=== PATIENT | female | born 1985 | race Caucasian/White ===

== ENCOUNTER → 2018-01-09 09:04 | Outpatient (CLI) | payer OTHER, SELFPAY ==
[2018-01-09 09:54] LABS: Add Manual Diff / Slide Review NO; Basophils Percent Auto 0.7 % (0-2); Eosinophils Percent Auto 0.9 % (2-4); Hemoglobin 12.6 g/dL (12.0-16.0); Lymphocytes Percent Auto 14.4 % (25-40); Mean Corpuscular Hemoglobin 25.7 PG (26-34); Mean Corpuscular Volume 77.9 fL (80-100); Monocytes Percent Auto 5.6 % (3-14); Neutrophils Absolute Auto 6000 /uL (3000-5900); Neutrophils Percent Auto 78.4 % (50-75); Platelet Count 202 X10^3/uL (150-400); Red Blood Cell Count 4.89 X10^6/uL (4.0-5.2); Red Cell Distribution Width 14.5 % (11.6-14.8); White Blood Cell Count 7.7 X10^3/uL (4.5-11.0)
[2018-01-09 10:14] LABS: Alanine Aminotransferase 26 IU/L (9-52); Albumin 4.3 g/dL (3.5-5.0); Albumin Globulin Ratio 1.5 (1.0-2.8); Alkaline Phosphatase 68 U/L (38-126); Aspartate Aminotransferase 13 IU/L (14-36); BUN Creatinine Ratio 14.3 (6-22); Bilirubin Total 0.4 mg/dL (0.2-1.3); Blood Urea Nitrogen 10 mg/dL (7-17); Calcium 9.3 mg/dL (8.4-10.2); Carbon Dioxide 26 mmol/L (22-32); Chloride 104 mmol/L (98-107); Cholesterol 225 mg/dL (140-199); Estimated Glomerular Filt Rate > 60.0 mL/min (>60); Globulin 2.8 g/dL (1.7-4.1); Glucose 85 mg/dL (70-100); HDL Cholesterol 37 mg/dL (40-60); HEMOLYSIS < 15 (0-50); LDL Cholesterol Calculated 168 mg/dL (<100); Potassium 4.2 mmol/L (3.4-5.1); Sodium 143 mmol/L (137-145); Total Protein 7.1 g/dL (6.3-8.2); Triglycerides 99 mg/dL (35-150)
[2018-01-09 10:40] LABS: TSH w/ Reflex to FT4 2.54 uIU/mL (0.47-4.68)
[2018-01-09 10:44] LABS: Testosterone 28.5 ng/dL (5.71-77.0)
== END ==
PROVIDERS: PCP Family Medicine; Visit Provider Family Medicine
DX: E28.2 Polycystic ovarian syndrome (principal)
CPT/HCPCS: 36415; 80053; 80061; 84403; 84443; 85025

== ENCOUNTER 2019-06-18 18:31 | Observation (INO) | payer OTHER, SELFPAY ==
[2019-06-18 18:49] VITALS: BP 191/109; PULSE 78; RESP 16; TEMP 36.8; O2SAT 100
--- NOTE | 2019-06-18 19:02 | ED_ITS ---
HPI - Abdominal Pain <NETTIE Bell - Last Filed: 06/18/19 21:35> General Chief Complaint: Abdominal Pain Stated Complaint: stomach pain x15 minutes Time Seen by Provider: 06/18/19 18:37 Source: patient Mode of arrival: Ambulatory Limitations: no limitations History of Present Illness HPI narrative: 33yo female presents to the emergency department complaining of sudden onset of upper abdominal pain that started while she was working in the kitchen doing dishes. She is tearful stating ?I have never had pain like this before ever ?. She states the pain occasionally radiates up to the middle of her chest and around to the right side of her back. She states pain is worse with palpation and movement. She describes the pain as a 10/10 and is unable to give a characteristic of the pain. Patient denies any nausea, vomiting, diarrhea, shortness of breath, cough, fevers, chills, or any other concerns. She denies any history of abdominal surgeries. Related Data Home Medications Medication Instructions Recorded Confirmed etonogestrel 68 mg subdermal SUBDERMAL each 12/28/17 12/28/17 implant Previous Rx's Medication Instructions Recorded spironolactone 50 mg tablet 25 mg PO BID #60 tab 12/28/17 Allergies Allergy/AdvReac Type Severity Reaction Status Date / Time No Known Drug Allergies Allergy Verified 12/28/17 08:31 Review of Systems <NETTIE Bell - Last Filed: 06/18/19 21:35> Review of Systems Narrative: REVIEW OF SYSTEMS: GENERAL: Denies fever, chills, malaise, or wt. loss. HENT: No head trauma, sore throat, or dysphagia. EYES: No loss of vision, double vision, eye pain, or irritation. CARDIOVASCULAR: No chest pain, palpitations, or orthopnea. RESPIRATORY: No shortness of breath or cough. GASTROINTESTINAL: Complains of upper abdominal pain, see HPI GENITOURINARY: No flank pain, urinary incontinence, hesitancy, frequency, or dysuria. MUSCULOSKELETAL: No pain, weakness, or trauma. INTEGUMENTARY: No rash, lesions, or pruritus. NEURO: No numbness, tingling, memory loss, confusion, or headaches. Patient History <NETTIE Bell - Last Filed: 06/18/19 21:35> Medical History 1 para 1 (Resolved) (normal spontaneous vaginal delivery) (Resolved 2013) PCOS (polycystic ovarian syndrome) (Chronic) Family History Father Hyperlipidemia Social History marital status: number of children: 4 household members: spouse education level: college occupational status: employed Smoking Status: Never smoker alcohol intake: never Smoking Status: Never smoker Substance Use Type: does not use Exam <NETTIE Bell - Last Filed: 06/18/19 21:35> Initial Vital Signs Initial Vital Signs: Vital Signs Temperature 98.3 F 06/18/19 18:49 Pulse Rate 78 06/18/19 18:49 Respiratory Rate 16 06/18/19 18:49 Blood Pressure 191/109 H 06/18/19 18:49 Pulse Oximetry 100 06/18/19 18:49 PHYSICAL EXAMINATION: GENERAL: Well groomed, alert, and cooperative. Answers questions promptly and appropriately. Vital signs noted. HENT: Normocephalic, atraumatic. Hearing intact. Oral mucosa is pink and moist. EYES: Conjunctiva pink, sclera white, no periorbital swelling. CHEST: No pain with palpation. CARDIOVASCULAR: S1 and S2 sounds normal. Regular rate and rhythm, no murmurs, clicks, or bruits. No pedal edema. RESPIRATORY: Normal respiratory rate, trachea midline, airway patent. No stridor, nasal flaring or accessory muscle use. Lungs are clear in all bullard without wheeze, rhonchi, or crackles. GASTROINTESTINAL: Bowel sounds normoactive. Abdomen is soft with right upper quadrant tenderness, positive Lai sign. No organomegaly, no palpable masses. GENITALURINARY: No flank tenderness. MUSCULOSKELETAL: Normal gait and coordination. Equal tone and mass bilaterally. EXTREMITIES: CMS intact, no pedal edema. SKIN: Warm, dry, soft, appropriate color for ethnicity. No lesions, rashes, or wounds to visualized areas. NEURO: Alert and Oriented X 3. Good coordination. No ataxia, or sensory deficits, or cognitive issues. PSYCH: Appropriate affect and mood. <Nixon German MD - Last Filed: 06/19/19 02:34> Initial Vital Signs Initial Vital Signs: Vital Signs Temperature 98.3 F 06/18/19 18:49 Pulse Rate 78 06/18/19 18:49 Respiratory Rate 16 06/18/19 18:49 Blood Pressure 191/109 H 06/18/19 18:49 Pulse Oximetry 100 06/18/19 18:49 Course <NETTIE Bell - Last Filed: 06/18/19 21:35> Course Course Narrative: Pain and nausea medications given. Patient reported significant improvement after administration of medications. Orders Ordered: ED Orders 06/18/19 18:37 EKG-12 Lead Stat 06/18/19 18:46 Complete Blood Count AUTO DIFF Stat Comprehensive Metabolic Panel Stat Lipase Stat Partial Thromboplastin Time Stat Prothrombin Time INR Stat 06/18/19 19:04 US abdomen limited Stat Sodium Chloride (Normal Saline 0.9%) 1,000 mls @ 125 mls/hr IV CONT DIVINE Last Admin: 06/18/19 23:42 Dose: 125 mls/hr Documented by: EMMANUEL Piperacillin/Tazobactam/Dextrose (Zosyn) 3.375 gm in 50 mls @ 100 mls/hr IV Q8H DIVINE Morphine Sulfate (Morphine) 2 mg IV Q2HR PRN PRN Reason: Pain, Moderate (4-6) Last Admin: 06/19/19 00:02 Dose: 2 mg Documented by: EMMANUEL Ondansetron HCl (Zofran) 4 mg IV Q8HR DIVINE Oxycodone HCl (Percolone) 5 mg PO Q4HR PRN PRN Reason: Pain, Moderate (4-6) Last Admin: 06/18/19 22:17 Dose: 5 mg Documented by: DIMITRIOS Discontinued Medications Hydromorphone HCl (Dilaudid) 0.5 mg IV NOW ONE Stop: 06/18/19 19:03 Last Admin: 06/18/19 20:03 Dose: 0.5 mg Documented by: KIRAN Piperacillin/Tazobactam/Dextrose (Zosyn) 3.375 gm in 50 mls @ 100 mls/hr IV NOW ONE Stop: 06/18/19 21:32 Last Infusion: 06/18/19 21:25 Dose: 0 mls/hr Documented by: Admin: 04/08/20 21:10 Dose: 100 mls/hr Documented by: KIRAN Sodium Chloride (Normal Saline 0.9%) 1,000 mls @ 1,000 mls/hr IV BOLUS ONE Stop: 06/18/19 22:00 Last Infusion: 06/18/19 21:25 Dose: 0 mls/hr Documented by: Admin: 06/18/19 21:10 Dose: 1,000 mls/hr Documented by: KIRAN Ondansetron HCl (Zofran Odt) 4 mg SL NOW ONE Stop: 06/18/19 19:03 Last Admin: 06/18/19 20:04 Dose: 4 mg Documented by: KIRAN Consultations Consultation #1: Patient staffed with Dr. German, discussed orders, tests, and pain management Consultation #2: Spoke with Dr. Callejas about ultrasound findings, patient admitted to observation. We discussed giving IV fluids, Zosyn, and placing the patient on a clear liquid diet. Dr. Callejas stated that surgery is attempted to be evaluated in this case due to the current pandemic. Patient was updated about this plan, agreed to admission. Vital Signs Vital signs: Vital Signs - 8 hr 06/18/19 18:49 06/18/19 20:54 Temperature 98.3 F Pulse Rate 78 67 Respiratory Rate 16 15 Blood Pressure 191/109 H Blood Pressure [Right Arm] 138/80 Pulse Oximetry 100 100 <Nixon German MD - Last Filed: 06/19/19 02:34> Orders Ordered: ED Orders 06/18/19 18:37 EKG-12 Lead Stat 06/18/19 18:46 Complete Blood Count AUTO DIFF Stat Comprehensive Metabolic Panel Stat Lipase Stat Partial Thromboplastin Time Stat Prothrombin Time INR Stat 06/18/19 19:04 US abdomen limited Stat Sodium Chloride (Normal Saline 0.9%) 1,000 mls @ 125 mls/hr IV CONT DIVINE Last Admin: 06/18/19 23:42 Dose: 125 mls/hr Documented by: EMMANUEL Piperacillin/Tazobactam/Dextrose (Zosyn) 3.375 gm in 50 mls @ 100 mls/hr IV Q8H DIVINE Morphine Sulfate (Morphine) 2 mg IV Q2HR PRN PRN Reason: Pain, Moderate (4-6) Last Admin: 06/19/19 00:02 Dose: 2 mg Documented by: EMMANUEL Ondansetron HCl (Zofran) 4 mg IV Q8HR DIVINE Oxycodone HCl (Percolone) 5 mg PO Q4HR PRN PRN Reason: Pain, Moderate (4-6) Last Admin: 06/18/19 22:17 Dose: 5 mg Documented by: DIMITRIOS Discontinued Medications Hydromorphone HCl (Dilaudid) 0.5 mg IV NOW ONE Stop: 06/18/19 19:03 Last Admin: 06/18/19 20:03 Dose: 0.5 mg Documented by: KIRAN Piperacillin/Tazobactam/Dextrose (Zosyn) 3.375 gm in 50 mls @ 100 mls/hr IV NOW ONE Stop: 06/18/19 21:32 Last Infusion: 06/18/19 21:25 Dose: 0 mls/hr Documented by: Admin: 06/18/19 21:10 Dose: 100 mls/hr Documented by: KIRAN Sodium Chloride (Normal Saline 0.9%) 1,000 mls @ 1,000 mls/hr IV BOLUS ONE Stop: 06/18/19 22:00 Last Infusion: 06/18/19 21:25 Dose: 0 mls/hr Documented by: Admin: 06/18/19 21:10 Dose: 1,000 mls/hr Documented by: KIRAN Ondansetron HCl (Zofran Odt) 4 mg SL NOW ONE Stop: 06/18/19 19:03 Last Admin: 06/18/19 20:04 Dose: 4 mg Documented by: KIRAN Vital Signs Vital signs: Vital Signs - 8 hr 06/18/19 18:49 06/18/19 20:54 Temperature 98.3 F Pulse Rate 78 67 Respiratory Rate 16 15 Blood Pressure 191/109 H Blood Pressure [Right Arm] 138/80 Pulse Oximetry 100 100 MDM - Abdominal Pain <NETTIE Bell - Last Filed: 06/18/19 21:35> Medical Records Attestation: I reviewed the patient's medical records. Lab Data Attestation: I reviewed the patient's lab results. Result diagrams: 06/18/19 18:46 06/18/19 18:46 Labs: Lab Results 06/18/19 06/18/19 06/18/19 Range/Units 18:46 18:46 18:46 WBC 12.3 H (4.5-11.0) X10^3/uL RBC 4.76 (4.0-5.2) X10^6/uL Hgb 13.0 (12.0-16.0) g/dL Hct 38.6 (36-46) % MCV 81.2 (80-100) fL MCH 27.4 (26-34) PG MCHC 33.7 (30-36) % RDW 13.7 (11.6-14.8) % Plt Count 190 (150-400) X10^3/uL Neut % (Auto) 71.8 (50-75) % Lymph % (Auto) 21.4 L (25-40) % Reynolds % (Auto) 5.2 (3-14) % Eos % (Auto) 1.0 L (2-4) % Baso % (Auto) 0.6 (0-2) % Neut # (Auto) 8900 H (1887-5356) /uL Lymph # (Auto) 2600 (5528-0638) /uL Reynolds # (Auto) 600 (0-900) /uL Eos # (Auto) 100 (0-450) /uL Baso # (Auto) 100 (0-100) /uL PT 11.5 (10.1-12.7) SECONDS INR 1.0 (0.9-1.3) APTT 28 (26.4-36.2) SECONDS Sodium 136 L (137-145) mmol/L Potassium 3.6 (3.4-5.1) mmol/L Chloride 102 (98-107) mmol/L Carbon Dioxide 24 (22-32) mmol/L BUN 13 (7-17) mg/dL Creatinine 0.79 (0.52-1.04) mg/dL Estimated GFR > 60.0 (>60) mL/min BUN/Creatinine Ratio 16.5 (6-22) Glucose 120 H (70-100) mg/dL Calcium 9.9 (8.4-10.2) mg/dL Total Bilirubin 0.4 (0.2-1.3) mg/dL AST 27 (14-36) IU/L ALT 20 (<35) IU/L Alkaline Phosphatase 75 (38-126) U/L Total Protein 8.2 (6.3-8.2) g/dL Albumin 4.6 (3.5-5.0) g/dL Globulin 3.6 (1.7-4.1) g/dL Albumin/Globulin Ratio 1.3 (1.0-2.8) Lipase 131 (23-300) U/L Imaging Data US - abdomen: Radiologist's Impression: [address] [id number] Ultrasound Report Signed Patient: Taylor Cazares CMR#: [id number] : 1985Acct:[id number] Age/Sex: 33 / FDate of Service: 06/18/19 Loc: ED Accession Number: [id number] Procedure: US abdomen limited Ordering Provider: Julia Gruber PROCEDURE: US ABDOMEN LIMITED INDICATIONS: RIGHT UPPER QUADRANT PAIN TECHNIQUE: Real-time scanning was performed of the abdominal and retroperitoneal organs, with image documentation. COMPARISON: None. FINDINGS: Liver: Liver is normal in size and homogeneous in echotexture. Gallbladder: Demonstrates multiple calculi with lumen. Positive sonographic Lai's sign. Gallbladder wall measures 1.4 mm. Biliary ducts: Intrahepatic bile ducts are non-dilated. Extrahepatic bile duct caliber measures 5 mm. Normal is 6-7 mm or less in diameter, or 10 mm or less post-cholecystectomy. Pancreas: Visualized portions of the pancreas are sonographically normal. IMPRESSION: 1. Cholelithiasis. 2. Positive sonographic Lai sign, which may indicate mild/early cholecystitis. However, there is no gallbladder wall thickening. Dictated by: Delta Cherry M.D. on 06/18/2019 at 20:22 Approved by: Delta Cherry M.D. on 06/18/2019 at 20:23 ECG Data Interpretation: Normal sinus rhythm, rate 88, MA interval 177, QTC 421. No ST elevation or ST depression. No ectopy. Viewed by Dr. German per protocol. [facility] Narrative Medical decision making narrative: 33-year-old fairly healthy female presenting to the emergency department with upper abdominal pain that radiates into the chest. Findings were suspicious for gallbladder etiology on exam. Ultrasound confirms cholelithiasis with mild to early colicystitis, slightly elevated white count of 12+. After discussion with Dr. Callejas suggested admission to observation with antibiotics, clear liquid diet, and IV fluids. These orders were started in the emergency department. Patient was admitted to observation. Lipase within normal limits. Less likely cardiac etiology due to duration of pain and normal EKG as well as low risk factors. Patient agreed to admission. <Nixon German MD - Last Filed: 06/19/19 02:34> Lab Data Labs: Lab Results 06/18/19 06/18/19 06/18/19 Range/Units 18:46 18:46 18:46 WBC 12.3 H (4.5-11.0) X10^3/uL RBC 4.76 (4.0-5.2) X10^6/uL Hgb 13.0 (12.0-16.0) g/dL Hct 38.6 (36-46) % MCV 81.2 (80-100) fL MCH 27.4 (26-34) PG MCHC 33.7 (30-36) % RDW 13.7 (11.6-14.8) % Plt Count 190 (150-400) X10^3/uL Neut % (Auto) 71.8 (50-75) % Lymph % (Auto) 21.4 L (25-40) % Reynolds % (Auto) 5.2 (3-14) % Eos % (Auto) 1.0 L (2-4) % Baso % (Auto) 0.6 (0-2) % Neut # (Auto) 8900 H (1646-2164) /uL Lymph # (Auto) 2600 (6325-9839) /uL Reynolds # (Auto) 600 (0-900) /uL Eos # (Auto) 100 (0-450) /uL Baso # (Auto) 100 (0-100) /uL PT 11.5 (10.1-12.7) SECONDS INR 1.0 (0.9-1.3) APTT 28 (26.4-36.2) SECONDS Sodium 136 L (137-145) mmol/L Potassium 3.6 (3.4-5.1) mmol/L Chloride 102 (98-107) mmol/L Carbon Dioxide 24 (22-32) mmol/L BUN 13 (7-17) mg/dL Creatinine 0.79 (0.52-1.04) mg/dL Estimated GFR > 60.0 (>60) mL/min BUN/Creatinine Ratio 16.5 (6-22) Glucose 120 H (70-100) mg/dL Calcium 9.9 (8.4-10.2) mg/dL Total Bilirubin 0.4 (0.2-1.3) mg/dL AST 27 (14-36) IU/L ALT 20 (<35) IU/L Alkaline Phosphatase 75 (38-126) U/L Total Protein 8.2 (6.3-8.2) g/dL Albumin 4.6 (3.5-5.0) g/dL Globulin 3.6 (1.7-4.1) g/dL Albumin/Globulin Ratio 1.3 (1.0-2.8) Lipase 131 (23-300) U/L Discharge Plan Departure Patient Disposition: Admitted as Observation Clinical Impression: Cholelithiasis Qualifiers: Cholelithiasis location: gallbladder Cholecystitis presence: with cholecystitis Cholecystitis acuity: acute Biliary obstruction: without biliary obstruction Qualified Code(s): K80.00 - Calculus of gallbladder with acute cholecystitis without obstruction Discharge Date/Time: 06/18/19 21:29 Admit Date/Time: 06/18/19 21:02 Admit Provider: Kamlesh Callejas
[2019-06-18 19:09] LABS: Prothrombin Time 11.5 SECONDS (10.1-12.7)
[2019-06-18 19:10] LABS: Add Manual Diff / Slide Review NO; Basophils Absolute Auto 100 /uL (0-100); Basophils Percent Auto 0.6 % (0-2); Eosinophils Absolute Auto 100 /uL (0-450); Hematocrit 38.6 % (36-46); Lymphocytes Absolute Auto 2600 /uL (1100-4500); Lymphocytes Percent Auto 21.4 % (25-40); Mean Corpuscular HGB Conc 33.7 % (30-36); Mean Corpuscular Hemoglobin 27.4 PG (26-34); Mean Corpuscular Volume 81.2 fL (80-100); Monocytes Absolute Auto 600 /uL (0-900); Monocytes Percent Auto 5.2 % (3-14); Neutrophils Absolute Auto 8900 /uL (1500-7000); Neutrophils Percent Auto 71.8 % (50-75); Platelet Count 190 X10^3/uL (150-400); Red Blood Cell Count 4.76 X10^6/uL (4.0-5.2); Red Cell Distribution Width 13.7 % (11.6-14.8); White Blood Cell Count 12.3 X10^3/uL (4.5-11.0)
[2019-06-18 19:12] LABS: PTT Partial Thromboplastin Tim 28 SECONDS (26.4-36.2)
[2019-06-18 19:14] LABS: Alanine Aminotransferase 20 IU/L (<35); Albumin 4.6 g/dL (3.5-5.0); Albumin Globulin Ratio 1.3 (1.0-2.8); Alkaline Phosphatase 75 U/L (38-126); Aspartate Aminotransferase 27 IU/L (14-36); BUN Creatinine Ratio 16.5 (6-22); Bilirubin Total 0.4 mg/dL (0.2-1.3); Blood Urea Nitrogen 13 mg/dL (7-17); Calcium 9.9 mg/dL (8.4-10.2); Carbon Dioxide 24 mmol/L (22-32); Chloride 102 mmol/L (98-107); Estimated Glomerular Filt Rate > 60.0 mL/min (>60); Globulin 3.6 g/dL (1.7-4.1); Glucose 120 mg/dL (70-100); HEMOLYSIS 21 (0-50); Lipase 131 U/L (23-300); Potassium 3.6 mmol/L (3.4-5.1); Sodium 136 mmol/L (137-145); Total Protein 8.2 g/dL (6.3-8.2)
[2019-06-18] MEDS: HYDROMORPHONE 0.5 MG INJ IV (20:03)
[2019-06-18] MEDS: ONDANSETRON 4 MG ODT SL (20:04)
[2019-06-18 20:54] VITALS: BP 138/80; PULSE 67; RESP 15; O2SAT 100
[2019-06-18] MEDS: PIPERACILLIN-TAZO 3.375 GM/50 ML FROZ.PIGGY IV (21:10)
[2019-06-18] MEDS: SODIUM CHLORIDE 0.9% 1,000 ML 1000 ML IV (21:10)
--- NOTE | 2019-06-18 21:28 | PC.NURSE ---
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 Pt has implant control
[2019-06-18 21:49] VITALS: BP 141/80; PULSE 69; RESP 16; TEMP 36.1; O2SAT 99
[2019-06-18] MEDS: OXYCODONE IR 5 MG TABLET PO (22:17)
[2019-06-18 22:21] VITALS: BMI 32.3
[2019-06-18 23:41] VITALS: BP 142/86; PULSE 89; RESP 18; TEMP 36.8; O2SAT 100
[2019-06-18] MEDS: SODIUM CHLORIDE 0.9% 1,000 ML 125 ML IV (23:42)
[2019-06-19] VITALS (19 sets, daily range): BP systolic 114–147; BP diastolic 51–91; PULSE 63–88; RESP 10–20; TEMP 36.3–37.2; O2SAT 95–100; BMI 32.3
--- NOTE | 2019-06-19 | PATH_ITS ---
[facility] Accession Number: [id number] . 01 Material submitted: . gallbladder - GALLBLADDER AND CONTENTS . 01 Clinical history: . STOMACH PAIN X15 MINUTES . 02 Diagnosis: Gallbladder and Contents, Cholecystectomy: Chronic cholecystitis with cholelithiasis and cholesterolosis. Negative for dysplasia and malignancy. MRV 06/23/2019 1110 Local . 02 Electronically signed: . Marianne Cedeño MD, Pathologist NPI- [id number] . 01 Gross description: . Received in formalin and labeled gallbladder is an intact gallbladder (length-9.5 cm, diameter-3.0 cm) with green, smooth, shiny serosa and a patent cystic duct. No lymph nodes are identified. The lumen contains dark green, gelatinous bile and multiple hill-yellow, gritty, friable calculi (4.5 x 3.5 x 0.4 cm in aggregate). The mucosa is pale green and rough. The wall is up to 0.1 cm thick. No nodules, masses, or lesions are identified. Section code: (A1) cystic duct resection margin and two serial sections from the body; (A2) two longitudinal sections from the fundus. ([id number]) /HOWARD 06/21/2019 1242 Local . 02 Pathologist provided ICD-10: K80.60 . 02 CPT . 527361 Performed at: 01 [facility] [address] [facility], [place], [place] [id number] MD Brice Ortiz MD Phone: [phone] Performed at: 02 [facility] [address] [place], [place] [id number] MD Marianne Cedeño MD Phone: [phone]
[2019-06-19] MEDS: MORPHINE 2 MG/ML INJ IV ×2 (00:02→14:17)
--- NOTE | 2019-06-19 00:35 | PC.NURSE ---
Addendum entered by Christin Mcarthur R.N. 06/19/19 05:44: Pain controlled with IV morphine. Pt reports feeling much better. SBA to restroom. Voiding without difficulty. Pt alert and oriented and denies any complaints Original Note: Pt reports abdomen pain 6/10 unresolved with oxycodone. Pt appears to be in a lot of pain. TO order from Dr Callejas to give morphine 2mg IV q2 hours PRN for pain.
[2019-06-19] MEDS: OXYCODONE IR 5 MG TABLET PO (05:28)
[2019-06-19] MEDS: SODIUM CHLORIDE 0.9% 1,000 ML 125 ML IV (05:29)
[2019-06-19] MEDS: ONDANSETRON 4 MG/2 ML INJ IV ×2 (05:29→19:40)
[2019-06-19] MEDS: PIPERACILLIN-TAZO 3.375 GM/50 ML FROZ.PIGGY IV ×2 (05:29→12:19)
--- NOTE | 2019-06-19 07:32 | PM.HP.1 ---
History of Present Illness History of Present Illness Date Patient Seen: 06/19/19 Time Patient Seen: 07:38 Chief complaint: stomach pain x15 minutes Narrative: Taylor is a 33-year-old woman who presented to the emergency room with acute cholecystitis. She has a history of intermittent biliary colic which she initially attributed to dairy intolerance. She describes these episodes as right upper quadrant pain following meals that would self resolve. Last night she presented with acute onset of right upper quadrant pain associated with bloating. The she had an ultrasound the right upper quadrant which demonstrates multiple gallstones there was no pericholecystic fluid or wall thickening the common bile duct was normal in size. Laboratory studies white blood cell count 12 total bilirubin 0.4 normal LFTs. No history of prior abdominal surgery. Past medical history is significant for obesity and PCOS. She is a nonsmoker and not on anticoagulation. Patient History Medical History 1 para 1 (Resolved) (normal spontaneous vaginal delivery) (Resolved 2013) PCOS (polycystic ovarian syndrome) (Chronic) Family & Social History Family History Father Hyperlipidemia Social History: household members spouse Prior Living Arrangements House Safety & Behavioral: Feels Safe in Current Yes Environment Been Physically Hurt or No Threatened By a Person Suicidal Ideation Description None Suicide Plan Description No Plan Tobacco & Substance use: Smoking Status Never smoker alcohol intake never Substance Use Type does not use Meds Home Medications and Allergies Home Medications Medication Instructions Recorded Confirmed Type etonogestrel 68 mg subdermal See Rx Instructions .ROUTE 12/28/17 06/19/19 History implant .COMPLEX each Allergies Allergy/AdvReac Type Severity Reaction Status Date / Time No Known Drug Allergies Allergy Verified 12/28/17 08:31 Review of Systems Review of Systems Narrative: A 10 point review of systems is negative except as noted in the HPI Exam Vital Signs (past 8 hours): - 06/18/19 23:41 06/19/19 05:36 Temperature 98.2 F 97.3 F L Pulse Rate 89 73 Respiratory Rate 18 18 Blood Pressure 142/86 H 133/84 Pulse Oximetry 100 100 Oxygen Delivery Method Room Air Oxygen Flow Rate 0 Narrative Exam Narrative: General-no acute distress, well nourished HEENT-moist mucous membranes, no scleral icterus Neck-supple, no lymphadenopathy Chest- non labored respirations, clear to auscultation bilaterally Cardiac-regular rate no peripheral edema Abdomen tender right upper quadrant no guarding Extremities-warm, well perfused Neurological-alert and oriented, no focal deficits Objective Labs Result Diagrams: 06/18/19 18:46 06/18/19 18:46 Labs: Laboratory Results - last 24 hr 06/18/19 06/18/19 06/18/19 18:46 18:46 18:46 WBC 12.3 H RBC 4.76 Hgb 13.0 Hct 38.6 MCV 81.2 MCH 27.4 MCHC 33.7 RDW 13.7 Plt Count 190 Neut % (Auto) 71.8 Lymph % (Auto) 21.4 L [place] % (Auto) 5.2 Eos % (Auto) 1.0 L Baso % (Auto) 0.6 Neut # (Auto) 8900 H Lymph # (Auto) 2600 [place] # (Auto) 600 Eos # (Auto) 100 Baso # (Auto) 100 PT 11.5 INR 1.0 APTT 28 Sodium 136 L Potassium 3.6 Chloride 102 Carbon Dioxide 24 BUN 13 Creatinine 0.79 Estimated GFR > 60.0 BUN/Creatinine Ratio 16.5 Glucose 120 H Calcium 9.9 Total Bilirubin 0.4 AST 27 ALT 20 Alkaline Phosphatase 75 Total Protein 8.2 Albumin 4.6 Globulin 3.6 Albumin/Globulin Ratio 1.3 Lipase 131 Assessment & Plan Assessment & Plan narrative: Taylor is a 33-year-old female with history of biliary colic and acute cholecystitis the past 12 hours.. I reviewed her ultrasound which demonstrates gallstones her laboratory studies which demonstrate white blood cell count 12 total bilirubin 0.4 and normal LFTs. I discussed with the patient the nature of her disease mike her pictures to explain her pathology. I told her I would recommend proceeding with a laparoscopic cholecystectomy but conservative treatment with antibiotic therapy is an alternative. We discussed the technical nature of the procedure including its risks of bleeding, infection, intestinal damage, damage to bile duct, bile leak, hernia formation, and anesthetic risks. Her questions have been answered she would like a chance to discuss this with her she will let us know her decision. -NPO -Zosyn -SCDs Quality VTE Deep Vein Thrombosis/Pulmonary Embolism Present on Admission: No
--- NOTE | 2019-06-19 11:00 | CM.DANOTE ---
Discharge Planning/Care Management DCP: assessment: case received, EMR reviewed. Discussed in Team Rounds with care team members stating that pt was going to surgery later this afternoon with surgeon: Dr. Alcocer. Met now with pt; introduced self and role. Pt is a 33 year old female who admitted last night to care [facility] team. She confirms that she and her discussed the options presented to them by Dr. Callejas and have decided that she will go ahead with surgery today. Payer: [facility] PCP: Dr. Alexandrea Martinez Admission status: OBS: per UR KARISSA Ferrara P: will follow prn for any d/c needs that may arise after surgery. CM Discharge Assessment Start: 06/19/19 10:58 Freq: Status: Active Protocol: Document 06/19/19 10:59 ITV (Rec: 06/19/19 11:00 ITV [id number]) Discharge Planning Assessment Advance Directives? No History Provided By Patient,Medical Record Prior Living Arrangements House Household Members spouse Independent with ADL's Yes Is patient alert and oriented? Yes Whiteboard Updated in Patient Room with Yes name and ext. # of Special Tester Review Status In Process
[2019-06-19 11:03] LABS: Bacteria Urine None Seen; RBC Urine None Seen (0-5/HPF); WBC Urine None Seen (0-5/HPF)
[2019-06-19 11:04] LABS: Appearance Urine UA CLEAR; Bilirubin Urine UA NEGATIVE (NEGATIVE); Color Urine UA YELLOW; Glucose Urine UA NEGATIVE (Negative); Ketones Urine UA NEGATIVE (NEGATIVE); Leukocyte Esterase Urine UA NEGATIVE (NEGATIVE); Nitrite Urine UA NEGATIVE (Negative); Occult Blood Urine UA NEGATIVE (Negative); Protein Urine UA NEGATIVE (Negative); Urobilinogen Urine UA 0.2 E.U./dL (0.2)
[2019-06-19 11:12] LABS: Culture Indicated Urine Cult Not Indicated; Pregnancy Test Urine Negative (Negative); Urine Comments Microscopic Normal
--- NOTE | 2019-06-19 11:21 | PC.NURSE ---
Addendum entered by Mora Bennett R.N. 06/19/19 14:54: Pt's left 4th ring finger has 2 bands, taped as unable to take off due to slightly swollen fingers. Stud earrings, pt's cell phone, and credit card's and ID sent to unit safe. Pt left to OR at 1440 via bed with OR team and Dr. Alcocer. Original Note: Day Shift- Pt A&OX4, able to make her needs known. Dr. Alcocer in to speak with pt this morning, plan for surgery at 1545, pt aware that time might adjust. Rates 2/10 aching to RUQ abd, no prn at this time, aware to let staff know if pain increasing. Denies nausea. IVF infusing well to left AC PIV. Mouth swabs and lip balm given to pt with verbal instructions. No other voiced concerns. Will monitor.
--- NOTE | 2019-06-19 14:46 | PM.PREOP ---
Pre-operative Note Interval Note History & Physical reviewed/Exam performed by Physician: Yes Changes to H&P: Yes H&P completed within 30 days and has changed as indicated here:: I have discussed the operation with the patient including risks of bleeding, infection, hernia, injury to internal organs or ducts which would require major operation to repair, bile leakage, and post operative restrictions. She appears to understand and wishes to proceed
[2019-06-19] MEDS: LACTATED RINGERS 1,000 ML 42 ML IV ×2 (14:56→19:35)
--- NOTE | 2019-06-19 17:01 | SUR.OPER ---
Supine on padded OR bed, head on pillow, arms secured on padded arm boards at <90 degrees abduction, legs uncrossed with padded footboard secured to foot of bed, safety belt at thigh, tape over blanket over lower legs.
[2019-06-19] MEDS: CEFAZOLIN 2 GM/100 ML FROZ.PIGGY IV (17:20)
[2019-06-19] MEDS: BUPIVACAINE 0.5% (PF) VIAL 30 ML INJ (17:29)
--- NOTE | 2019-06-19 18:59 | PM.OP.1 ---
Operative Date/Time/Diagnoses Date of procedure: 06/19/19 Time of procedure: 18:59 Pre-op diagnosis: Cholelithiasis cholecystitis chronic? Acute? Post-op diagnosis: same Procedure & Clinicians Procedure: Laparoscopic cholecystectomy Same procedure as scheduled: Yes Indications: Epigastric pain nausea elevated white blood cell count and abnormal ultrasound Surgeon: Juan Antonio Alcocer Click Yes if Unassisted: Yes Anesthesia Type: General Operative Notes Findings: Significant Intrahepatic portion of the gallbladder with right hepatic artery giving off branches to the gallbladder along its surface with the liver Closure Type: primary Specimen(s): other (Gallbladder and contents) Prosthetic devices, grafts, tissues, transplants, or devices: None Estimated Blood Loss (mL): 20 Blood products transfused: none Procedure in detail: The patient was placed supine on the operating room table and underwent general endotracheal anesthesia. She was prepped and draped in the usual fashion. Local anesthetic was infiltrated in the infraumbilical fold an incision made here. This carried down under direct vision into the peritoneal cavity. Stay sutures of 0 Vicryl were placed in the fascia. A 12 mm cannula was inserted and the abdomen was insufflated. The patient was repositioned in 3-the ports placed under the right costal margin. These were all 5 mm ports inserted after local anesthetic was infiltrated. The gallbladder was readily identified grasped and elevated. It is and was a bit difficult initially to discern. It almost appeared that the common bile duct or a branch of it was rotated up across the inferior portion of the gallbladder. I carefully dissected this out and a turned out to just be a a fold in the gallbladder itself. Dissection was begun below this and a ductal structure singular nature going directly the gallbladder was identified. It was from surrounding structures. Four clips were placed across it but I could not easily divide between them and therefore I clamped across the end of the gallbladder and divided above them. The gallbladder clamp prevented spillage. I identified a large arterial structure between the liver and gallbladder that appeared to give it small branches off into the gallbladder but continue on into the liver. I very carefully clipped and divided the small branches while preserving the main artery. The gallbladder was then dissected from its bed in the liver. A great deal of it was actually intra hepatic. This was a slow process. Ultimately the gallbladder was detached and removed without difficulty or spillage through the umbilical port. great care was taken throughout the procedure to vent all air through the micron filter. The port was reinserted and meticulous hemostasis achieved in the gallbladder bed. There was no ongoing bleeding and there had been no bilious drainage noted. The right upper quadrant was irrigated and suctioned free of fluid. With no further bleeding noted the ports were all removed after the evacuating the air through the filter. The is patient had a 2 0 PDS placed between the 2 Vicryl sutures at the umbilicus and then the stay sutures were tied. The wounds were all irrigated and 4 0 Vicryl subcuticular stitch interrupted stitches were used to close the skin along with Mastisol and Steri-Strips. Patient tolerated the procedure well. She was awakened in the operating room and extubated there and partially recover there as well due to the COVID-19 issues. Complications: none Post-operative Condition: stable Disposition: PACU Plan for aftercare: Will be discharged once tolerating a diet with normal vital signs
[2019-06-19] MEDS: MORPHINE 10 MG/ML INJ IV (19:39)
[2019-06-19] MEDS: hydrOXYzine 50 MG/ML INJ 25 MG IM (19:40)
[2019-06-19] MEDS: LACTATED RINGERS 1,000 ML 100 ML IV (21:23)
--- NOTE | 2019-06-19 21:33 | PC.NURSE ---
post op pt to AC from PACU at 2024. VSS. pt very drowsy. opens eyes to voice/touch but quickly drifts back to sleep. Answering questions with 1 word responses. Denies pain and is without signs/symptoms of distress. Spoke with pt at 2099 about possibility to DC tonight. Pt agreeable to DC in AM r/t drowsiness. Pt's spouse updated by this RN and notified that pt will DC tomorrow.
[2019-06-19] MEDS: KETOROLAC 30 MG/ML VIAL IV (23:54)
--- NOTE | 2019-06-20 00:10 | PC.NURSE ---
Addendum entered by Sonali Spring R.N. 06/20/19 07:22: Still complains of pain stating baseline pain now up to 6/10 so medicated with Percocet. Addendum entered by Sonali Spring R.N. 06/20/19 06:13: States pain is currently 4/10 when breathing shallow and 6/10 with deep breathing; discussed needing to keep pain at tolerable level so able to take deep breaths. Is receiving scheduled Toradol but has other pain medications available if needed; verbalizes understanding. SCD's off and patient declines to have replaced at this time. Original Note: Patient is oriented but drowsy; very soft spoken. Breath sounds diminished but CTA and is taking shallow respirations; RA sat 100%. Discussed importance of CDB to prevent post op pneumonia and also discussed splinting of incision. HRR with BP of 147/87. Denies nausea. BT hypoactive and denies flatus. 4 bandaid dressings to abdomen all CDI. Does complain of 6/10 abdominal pain due to incisions and medicated with scheduled Toradol and ice applied for comfort. Assisted to BSC with 1 assist due to generalized weakness; able to void 500cc; denies dysuria, frequency or urgency. Is able to turn self in bed. Wearing bilateral calf SCD's. Fall risk score is moderate; bed alarm is activated
[2019-06-20 03:18] VITALS: BP 133/71; PULSE 77; RESP 16; TEMP 36.6; O2SAT 100
[2019-06-20] MEDS: KETOROLAC 30 MG/ML VIAL IV (06:07)
[2019-06-20] MEDS: LACTATED RINGERS 1,000 ML 100 ML IV (07:03)
[2019-06-20] MEDS: OXYCODONE/ACETAMINOPHEN 5/325 TABLET 2 TAB PO (07:20)
[2019-06-20 08:00] VITALS: BP 151/88; PULSE 71; RESP 16; TEMP 36.7; O2SAT 99
--- NOTE | 2019-06-20 08:09 | CM.DPC ---
DCP: continued. Pt now with a d/c to home setting. Her will be picking her up. Clinic followup planned.
[2019-06-20] MEDS: ENOXAPARIN 40 MG/0.4 ML SYRINGE SUBCUT (08:27)
[2019-06-20] MEDS: GABAPENTIN 300 MG CAPSULE PO (08:28)
--- NOTE | 2019-06-20 10:24 | PC.NURSE ---
Discharge Pt states pain controlled with percocet this AM. Up independently in room. Urinating without issue. Tolerated clear liquid diet per MD instructions. d/c instrucitons provided to pt. Aware to contact surgeon for f/u apt to be scheduled as well as if any other questions or issues arise. Pt states she is taking all her belongings with her. She received her belongings from the [facility] prior to this shift. Left in w/c with [employer] escort to car with her to return home. received Rx for pain meds last night.
== END 2019-06-20 10:10 | disposition home or self-care (01) ==
LOC: ED 18:37 → AC 21:02
PROVIDERS: Specialist; Admitting Provider Surgery; Emergency Provider Nurse Practitioner; PCP Family Medicine; Visit Provider Surgery
PROC: 0FT44ZZ Resection of Gallbladder, Percutaneous Endoscopic Approach (ICD-10-PCS; CPT 47562; principal; 2019-06-19 15:45)
DX: K80.10 Calculus of gallbladder with chronic cholecystitis without obstruction (principal); R10.10 Upper abdominal pain, unspecified; E28.2 Polycystic ovarian syndrome; E78.5 Hyperlipidemia, unspecified
CPT/HCPCS: 47562; 36415; 76705; 80053; 81001; 81025; 83690; 85025; 85610; 85730; 93005; 96361; 96365; 96366; 96372; 96375; 96376; 99220; 99284; G0378; J0330; J0690; J1100; J1170; J1650; J1885; J2250; J2270; J2405; J2543; J2704; J3010; J3410

== ENCOUNTER 2019-06-22 12:10 | Emergency (ER) | payer OTHER, SELFPAY ==
--- NOTE | 2019-06-22 | DI.MRI.S_ITS ---
PROCEDURE: MR ABDOMEN WO CON INDICATIONS: jaundice post lap choly r/o injury vs cbd stone TECHNIQUE: Coronal HASTE through the abdomen, axial 2-D FLASH in- and [id number], and breath-hold T2 FSE with fat saturation through the biliary system and pancreas. Oblique coronal and axial thin-slice HASTE, radial thick-slab HASTE centered on the extrahepatic bile ducts. Intravenous secretin: Not requested. COMPARISON: [facility], , ABDOMEN LIMITED, 06/18/2019, 19:57. FINDINGS: Image quality: Excellent Pancreas and biliary system: Intra- and extra-hepatic biliary ducts are non dilated. Pancreas is normal in morphology, without adjacent soft tissue edema. Pancreatic duct is normal in caliber, without developmental anomalies. Gallbladder has been recently resected, and there is a small amount of free fluid within the gallbladder fossa, as expected. The distal common duct tapers in caliber and normally, at the ampulla. No intraluminal filling defect is seen that would indicate presence of retained stone. Common duct caliber at the pancreatic head is 7 mm. Other solid organs: Liver is normal in size. Spleen is normal in size. No adrenal nodules. Both kidneys are normal in size, without hydronephrosis. Nodes and vessels: No retroperitoneal or mesenteric adenopathy by size criteria. Aorta and inferior vena cava are normal in size. Bowel and peritoneum: Unenhanced bowel loops are normal in caliber. No free fluid. Lung bases: No basal pleural effusions. Heart size is normal. Bones and soft tissues: No ventral hernias. Bone marrow is of normal overall signal. IMPRESSION: Expected small degree of free fluid at the gallbladder fossa in this patient who has recently undergone cholecystectomy. There is no biliary distention with the common duct measuring up to 7 mm. The common duct at the pancreatic head area tapers normally at the ampulla level, and an impacted distal common duct calculus at the ampulla is not seen. In MR cholangiography there is a very short segment of the lumen of the distal duct within the ampulla itself which is normally in apposition, where a small ampullary stone conceivably could be present. This would require endoscopy for accurate detection. However, based on the imaging findings of this study such a circumstance is not considered to be present. The calculi present within the gallbladder lumen on prior ultrasound 06/18/19 had measured approximately 5 mm in diameter each and such calculi would be easily visible within the lumen of the common duct. Dictated by: Jacob Kilgore M.D. on 06/22/2019 at 14:08 Approved by: Jacob Kilgore M.D. on 06/22/2019 at 14:21
[2019-06-22 12:10] VITALS: BP 160/97; PULSE 96; RESP 18; TEMP 36.4; O2SAT 99
[2019-06-22] MEDS: LACTATED RINGERS 1,000 ML 200 ML IV (12:26)
[2019-06-22 12:33] LABS: Add Manual Diff / Slide Review NO; Basophils Absolute Auto 100 /uL (0-100); Basophils Percent Auto 0.6 % (0-2); Eosinophils Absolute Auto 0 /uL (0-450); Eosinophils Percent Auto 0.4 % (2-4); Hematocrit 38.2 % (36-46); Hemoglobin 12.9 g/dL (12.0-16.0); Lymphocytes Absolute Auto 800 /uL (1100-4500); Lymphocytes Percent Auto 9.1 % (25-40); Mean Corpuscular HGB Conc 33.6 % (30-36); Mean Corpuscular Hemoglobin 27.5 PG (26-34); Mean Corpuscular Volume 81.7 fL (80-100); Monocytes Absolute Auto 600 /uL (0-900); Monocytes Percent Auto 6.9 % (3-14); Neutrophils Absolute Auto 7700 /uL (1500-7000); Platelet Count 196 X10^3/uL (150-400); Red Blood Cell Count 4.68 X10^6/uL (4.0-5.2); Red Cell Distribution Width 13.6 % (11.6-14.8); White Blood Cell Count 9.3 X10^3/uL (4.5-11.0)
--- NOTE | 2019-06-22 12:33 | ED_ITS ---
HPI - Recheck/Abnormal Lab/Rx General Chief Complaint: Recheck/Abnormal Lab/Rx Stated Complaint: jaundice/no bm 4days/gallbladder surg x3days Time Seen by Provider: 06/22/19 12:33 Source: patient Mode of arrival: Ambulatory Limitations: no limitations History of Present Illness HPI narrative: 33-year-old female 3 days status post cholecystectomy here for evaluation jaundice. Received a call from Dr. Alcocer stating that the patient was coming into the emergency department because she called him stating that she was jaundice. Patient states that she is in no pain. Has not had a bowel movement since prior to the surgery otherwise no other symptoms. Related Data Home Medications Medication Instructions Recorded Confirmed etonogestrel 68 mg subdermal See Rx Instructions .ROUTE 12/28/17 06/22/19 implant .COMPLEX each ibuprofen 400 mg PO Q8H PRN 06/22/19 06/22/19 Previous Rx's Medication Instructions Recorded oxycodone-acetaminophen [Percocet] See Rx Instructions .ROUTE 06/19/19 .COMPLEX PRN #14 tab Allergies Allergy/AdvReac Type Severity Reaction Status Date / Time No Known Drug Allergies Allergy Verified 06/22/19 12:20 Review of Systems Constitutional Constitutional: Denies fever(s) Cardiovascular Cardiovascular: Denies chest pain and Denies dyspnea Respiratory Respiratory: Denies dyspnea Gastrointestinal Gastrointestinal: Denies abdominal pain Integumentary/Breasts Skin/Breast: Reports jaundice Neurologic Neurologic: Denies behavioral changes Psychiatric Psychiatric: Denies behavioral changes Hematologic/Lymphatic Hematologic/Lymphatic: Denies easy bleeding and Denies easy bruising Patient History Medical History 1 para 1 (Resolved) (normal spontaneous vaginal delivery) (Resolved 2013) PCOS (polycystic ovarian syndrome) (Chronic) Family History Father Hyperlipidemia Social History marital status: number of children: 4 household members: spouse education level: college occupational status: employed Smoking Status: Never smoker alcohol intake: never Smoking Status: Never smoker alcohol intake frequency: 0-2 drinks per day Substance Use Type: does not use Exam Initial Vital Signs Initial Vital Signs: Vital Signs Temperature 97.6 F 06/22/19 12:10 Pulse Rate 96 H 06/22/19 12:10 Respiratory Rate 18 06/22/19 12:10 Blood Pressure 160/97 H 06/22/19 12:10 Pulse Oximetry 99 06/22/19 12:10 Const General: cooperative and comfortable Limitations: mental status not altered HENMT Head: normal to inspection and normocephalic Resp Effort & Inspection: normal respiratory effort Auscultation: clear to auscultation bilaterally Cardio Rate: regular rate Rhythm: regular rhythm Skin General: jaundice Neuro General: alert, awake and oriented x3 Cognition: normal cognition Speech: speech normal Extrem General: normal to inspection and capillary refill normal Psych Appearance: grossly normal and well kempt Scores GCS [place] coma scale eye opening: Spontaneous Barbara coma scale verbal response: Orientated [place] coma scale motor response: Obey commands [place] coma scale total score: 15 Course Orders Ordered: ED Orders 06/22/19 12:20 Amylase Stat Complete Blood Count AUTO DIFF Stat Comprehensive Metabolic Panel Stat Lipase Stat PTT [Partial Thromboplastin Time] Stat Prothrombin Time INR Stat 06/22/19 12:39 Consult to General Surgery Stat Lactated Ringer's (Lactated Ringers) 1,000 mls @ 200 mls/hr IV CONT DIVINE Last Infusion: 06/22/19 13:47 Dose: 999 mls/hr Documented by: Infusion: 06/22/19 13:14 Dose: 0 mls/hr Documented by: Infusion: 06/22/19 12:50 Dose: 999 mls/hr Documented by: Admin: 06/22/19 12:26 Dose: 200 mls/hr Documented by: ARNAV Discontinued Medications Sodium Chloride (Normal Saline 0.9%) 1,000 mls @ 150 mls/hr IV CONT DIVINE Last Admin: 06/22/19 12:48 Dose: Not Given Documented by: PARUL Vital Signs Vital signs: Vital Signs - 8 hr 06/22/19 12:10 06/22/19 13:50 06/22/19 14:37 Temperature 97.6 F Pulse Rate 96 H 74 77 Respiratory Rate 18 20 18 Blood Pressure 160/97 H Blood Pressure [Right Arm] 161/92 H 161/90 H Pulse Oximetry 99 98 99 MDM - Recheck/Abnormal Lab/Rx Lab Data Result diagrams: 06/22/19 12:20 06/22/19 12:20 Labs: Lab Results 06/22/19 06/22/19 06/22/19 Range/Units 12:20 12:20 12:20 WBC 9.3 (4.5-11.0) X10^3/uL RBC 4.68 (4.0-5.2) X10^6/uL Hgb 12.9 (12.0-16.0) g/dL Hct 38.2 (36-46) % MCV 81.7 (80-100) fL MCH 27.5 (26-34) PG MCHC 33.6 (30-36) % RDW 13.6 (11.6-14.8) % Plt Count 196 (150-400) X10^3/uL Neut % (Auto) 83.0 H (50-75) % Lymph % (Auto) 9.1 L (25-40) % [place] % (Auto) 6.9 (3-14) % Eos % (Auto) 0.4 L (2-4) % Baso % (Auto) 0.6 (0-2) % Neut # (Auto) 7700 H (3961-8600) /uL Lymph # (Auto) 800 L (3590-0169) /uL [place] # (Auto) 600 (0-900) /uL Eos # (Auto) 0 (0-450) /uL Baso # (Auto) 100 (0-100) /uL PT 11.9 (10.1-12.7) SECONDS INR 1.0 (0.9-1.3) APTT 31 D (26.4-36.2) SECONDS Sodium 136 L (137-145) mmol/L Potassium 3.4 (3.4-5.1) mmol/L Chloride 103 (98-107) mmol/L Carbon Dioxide 22 (22-32) mmol/L BUN 5 L (7-17) mg/dL Creatinine 0.61 (0.52-1.04) mg/dL Estimated GFR > 60.0 (>60) mL/min BUN/Creatinine Ratio 8.2 (6-22) Glucose 105 H (70-100) mg/dL Calcium 9.6 (8.4-10.2) mg/dL Total Bilirubin 5.0 H (0.2-1.3) mg/dL AST 153 H (14-36) IU/L ALT 264 H (<35) IU/L Alkaline Phosphatase 185 H D (38-126) U/L Total Protein 8.0 (6.3-8.2) g/dL Albumin 4.2 (3.5-5.0) g/dL Globulin 3.8 (1.7-4.1) g/dL Albumin/Globulin Ratio 1.1 (1.0-2.8) Amylase 63 (30-110) U/L Lipase 125 (23-300) U/L Urine Dip Bedside Urine Glucose 100 mg/dl Bedside Urine Bilirubin - Negative Bedside Urine Ketone ++ 40 Urine Specific [place] 1.010 Bedside Urine Occult Blood - Negative Bedside Urine pH 7.0 Bedside Urine Protein - Negative Bedside Urine Urobilinogen - Negative Bedside Urine Nitrite - Negative Bedside Urine Leukocytes - Negative Esterase MDM Narrative Medical decision making narrative: Patient was seen and evaluated by General surgery here in the ER. General surgery ordered labs and MR and provided discharge instructions. Patient had no questions at time of discharge Discharge Plan Departure Patient Disposition: Home Clinical Impression: Jaundice of recent onset, S/P laparoscopic cholecystectomy Activity Restrictions/Additional Instructions: Continue post op instructions provided at discharge. Come for labs to out patient lab tomorrow afternoon. Prescriptions: Continued Nexplanon 68 mg implant See Rx Instructions .ROUTE .COMPLEX RF: 0 ibuprofen 400 mg Tablet 400 mg PO Q8H PRN (Reason: Pain (Scale Score 1-3)) RF: 0 oxycodone-acetaminophen [Percocet] 5-325 mg tablet See Rx Instructions .ROUTE .COMPLEX PRN (Reason: painful procedure) Qty: 14 RF: 0 Referrals: Juan Antonio Alccoer MD [Emergency Provider] - Leah Martinez DO [Primary Care Provider] -
[2019-06-22 12:38] LABS: Prothrombin Time 11.9 SECONDS (10.1-12.7)
--- NOTE | 2019-06-22 12:39 | P.HP_ITS ---
History of Present Illness History of Present Illness Date Patient Seen: 06/22/19 Time Patient Seen: 12:39 Chief complaint: jaundice/no bm 4days/gallbladder surg x3days Narrative: the patient is a woman who had a laparoscopic cholecystectomy on June 17 and was discharged the following morning. She called me because she said she is still jaundiced and has not had a boel movement. She was not jaundiced when she was evaluated in the ER, but she said her has thought she has been jaundiced all along. She has been having intermittant sharp abdominal pains, but for the most part does not really have much pain except around the incisions. She has been tolerating po and had a banana and some other food for breakfast. She has not been hungry however. No vomiting. She has been checking her temp and it has been normal. Patient History Medical History 1 para 1 (Resolved) (normal spontaneous vaginal delivery) (Resolved 2013) PCOS (polycystic ovarian syndrome) (Chronic) Family & Social History Family History Father Hyperlipidemia Social History: household members spouse Safety & Behavioral: Feels Safe in Current Yes Environment Been Physically Hurt or No Threatened By a Person Tobacco & Substance use: Smoking Status Never smoker alcohol intake never alcohol intake frequency 0-2 drinks per day Substance Use Type does not use Meds Home Medications and Allergies Home Medications Medication Instructions Recorded Confirmed Type etonogestrel 68 mg subdermal See Rx Instructions .ROUTE 12/28/17 06/22/19 History implant .COMPLEX each oxycodone-acetaminophen [Percocet] See Rx Instructions .ROUTE 06/19/19 06/22/19 Rx .COMPLEX PRN #14 tab ibuprofen 400 mg PO Q8H PRN 06/22/19 06/22/19 History Allergies Allergy/AdvReac Type Severity Reaction Status Date / Time No Known Drug Allergies Allergy Verified 06/22/19 12:20 Review of Systems Review of Systems Narrative: no cough or breathing issues. No heart issues. No dysuria (patient did not have a gaston) Exam Vital Signs (past 8 hours): - 06/22/19 12:10 Temperature 97.6 F Pulse Rate 96 H Respiratory Rate 18 Blood Pressure 160/97 H Pulse Oximetry 99 Oxygen Delivery Method Room Air Narrative Exam Narrative: Cooperative and pleasant. Obvious jaundiced sclera. Lungs clear with good effort. Heart RRR without murmur or gallop. Abdomen is protuberant, soft. Incisions intaact. No cellulitis. No unusual tenderness. Objective Labs Result Diagrams: 06/22/19 12:20 06/22/19 12:20 Labs: Laboratory Results - last 24 hr 06/22/19 06/22/19 12:20 12:20 WBC 9.3 RBC 4.68 Hgb 12.9 Hct 38.2 MCV 81.7 MCH 27.5 MCHC 33.6 RDW 13.6 Plt Count 196 Neut % (Auto) 83.0 H Lymph % (Auto) 9.[address] [place] % (Auto) 6.9 Eos % (Auto) 0.4 L Baso % (Auto) 0.6 Neut # (Auto) 7700 H Lymph # (Auto) [address] [place] # (Auto) 600 Eos # (Auto) 0 Baso # (Auto) 100 PT 11.9 INR 1.0 Assessment & Plan Assessment & Plan narrative: Patinet with jaundice post op lap choly. Abdominal findings do not suggest leak but it is still possible. Elevated bili and lft's leave open the possibility of an unsuspected stone, CBD ductal narrowing by clip, CBD occlusion, thrombosis of the right hepatic artery (anatomy was a variant of normal intraop), or reaction to some medication that was given (less likely). WBC is normal(9), suggestoing this is not an infection or cholangitis (preop was 16). Given normal bun and creat will proceed to imaging with MRCP which should give the best chance of a definitive answer to the cause. addendum: MRCP shows no unusual fluid collection, no ductasl dilitation a nd no obvious defect in the ducts. There is a seperation of pancreatic and biliary duct that could be due to a small stone in the ampulla, but this seems unlikely given the normal ducts. It is possible that the patient passed a small stone, or may have had an injury from medication. I will have her come for out patient labs tomorrow, and have advised her to take a laxative like milk of magnesia.
[2019-06-22 12:40] LABS: PTT Partial Thromboplastin Tim 31 SECONDS (26.4-36.2)
[2019-06-22 12:41] LABS: Alanine Aminotransferase 264 IU/L (<35); Albumin 4.2 g/dL (3.5-5.0); Albumin Globulin Ratio 1.1 (1.0-2.8); Alkaline Phosphatase 185 U/L (38-126); Amylase 63 U/L (30-110); Aspartate Aminotransferase 153 IU/L (14-36); BUN Creatinine Ratio 8.2 (6-22); Blood Urea Nitrogen 5 mg/dL (7-17); Calcium 9.6 mg/dL (8.4-10.2); Carbon Dioxide 22 mmol/L (22-32); Chloride 103 mmol/L (98-107); Estimated Glomerular Filt Rate > 60.0 mL/min (>60); Globulin 3.8 g/dL (1.7-4.1); Glucose 105 mg/dL (70-100); HEMOLYSIS < 15 (0-50); Lipase 125 U/L (23-300); Potassium 3.4 mmol/L (3.4-5.1); Sodium 136 mmol/L (137-145)
--- NOTE | 2019-06-22 13:14 | PC.NURSE ---
Patient is at MRI
[2019-06-22 13:50] VITALS: BP 161/92; PULSE 74; RESP 20; O2SAT 98
[2019-06-22 14:37] VITALS: BP 161/90; PULSE 77; RESP 18; O2SAT 99
== END 2019-06-22 15:07 | disposition home or self-care (01) ==
PROVIDERS: Emergency Provider Specialist; PCP Family Medicine
DX: R17 Unspecified jaundice (principal); G89.18 Other acute postprocedural pain
CPT/HCPCS: 36415; 74181; 80053; 81003; 82150; 83690; 85025; 85610; 85730; 96360; 96361; 99284

== ENCOUNTER → 2019-06-23 13:18 | Outpatient (CLI) | payer OTHER, SELFPAY ==
[2019-06-18 22:21] VITALS: BMI 32.3
[2019-06-23 13:58] LABS: Alanine Aminotransferase 382 IU/L (<35); Albumin 4.3 g/dL (3.5-5.0); Albumin Globulin Ratio 1.1 (1.0-2.8); Alkaline Phosphatase 225 U/L (38-126); Aspartate Aminotransferase 254 IU/L (14-36); Bilirubin Conjugated 1.6 md/dL (0.0-0.3); Bilirubin Total 4.6 mg/dL (0.2-1.3); Bilirubin Unconjugated 1.1 mg/dL (0.0-1.1); Globulin 3.8 g/dL (1.7-4.1); HEMOLYSIS < 15 (0-50); Total Protein 8.1 g/dL (6.3-8.2)
== END ==
PROVIDERS: PCP Family Medicine; Referring Provider Specialist; Visit Provider Specialist
DX: R17 Unspecified jaundice (principal); Z90.49 Acquired absence of other specified parts of digestive tract
CPT/HCPCS: 36415; 80076

== ENCOUNTER 2019-06-24 07:59 | Emergency (ER) | payer OTHER, SELFPAY ==
[2019-06-24] VITALS (8 sets, daily range): BP systolic 134–205; BP diastolic 74–101; PULSE 67–81; RESP 13–16; TEMP 36.6; O2SAT 96–100
--- NOTE | 2019-06-24 08:10 | ED_ITS ---
HPI - General Adult General Chief complaint: Abdominal Pain Stated complaint: surgery last week,pain Time Seen by Provider: 06/24/19 08:00 Source: patient Mode of arrival: Ambulatory Limitations: no limitations History of Present Illness HPI narrative: 33-year-old female who the end of last week underwent a laparosc opic cholecystectomy. I evaluated her here in the emergency department and 48 hours ago after she came the emergency department on recommendation by general surgery for evaluation jaundice that she had developed since the surgery. She was evaluated at that time by General surgery in the emergency department. Had an MRI and labs and was subsequently sent home. She states that she had labs drawn yesterday and has a follow-up appointment tomorrow with General surgery. She arrives today for increasing pain in her abdomen. She states that she thinks that it is the same pain that she has had since surgery but yesterday and especially this morning the pain has increasingly worsened. No fevers. Has been taking a laxative and had 1 small bowel movement yesterday. No urinary symptoms. Related Data Home Medications Medication Instructions Recorded Confirmed etonogestrel 68 mg subdermal See Rx Instructions .ROUTE 12/28/17 06/22/19 implant .COMPLEX each ibuprofen 400 mg PO Q8H PRN 06/22/19 06/22/19 Previous Rx's Medication Instructions Recorded oxycodone-acetaminophen [Percocet] See Rx Instructions .ROUTE 06/19/19 .COMPLEX PRN #14 tab Allergies Allergy/AdvReac Type Severity Reaction Status Date / Time No Known Drug Allergies Allergy Verified 06/22/19 12:20 Review of Systems Constitutional Constitutional: Denies fever(s) and Denies headache(s) ENT Ears, Nose, Mouth, and Throat: Denies headache(s) Cardiovascular Cardiovascular: Denies chest pain Respiratory Respiratory: Denies cough Gastrointestinal Gastrointestinal: Reports abdominal pain, Denies nausea and Denies vomiting Genitourinary Genitourinary: Denies dysuria Musculoskeletal Musculoskeletal: Denies myalgias and Denies arthralgias Integumentary/Breasts Skin/Breast: Denies rash Neurologic Neurologic: Denies behavioral changes and Denies headache(s) Psychiatric Psychiatric: Denies behavioral changes Hematologic/Lymphatic Hematologic/Lymphatic: Denies easy bleeding and Denies easy bruising Patient History Medical History Cholelithiasis (Inactive) 1 para 1 (Resolved) Hirsutism (Inactive) Hyperlipidemia (Inactive) Jaundice of recent onset (Inactive) (normal spontaneous vaginal delivery) (Resolved 2013) PCOS (polycystic ovarian syndrome) (Chronic) PCOS (polycystic ovarian syndrome) (Inactive) Surgical History S/P laparoscopic cholecystectomy (Inactive) Family History Father Hyperlipidemia Social History marital status: number of children: 4 household members: spouse education level: college occupational status: employed Smoking Status: Never smoker alcohol intake: never Smoking Status: Never smoker alcohol intake frequency: 0-2 drinks per day Substance Use Type: does not use Exam Initial Vital Signs Initial Vital Signs: Vital Signs Temperature 98 F 06/24/19 08:06 Pulse Rate 78 06/24/19 08:06 Respiratory Rate 13 06/24/19 08:06 Blood Pressure 205/101 H 06/24/19 08:06 Pulse Oximetry 100 06/24/19 08:06 Const General: cooperative, No comfortable (Uncomfortable) and well developed Limitations: mental status not altered HENMT Head: normal to inspection and normocephalic Resp Effort & Inspection: normal respiratory effort Cardio Rate: regular rate GI Inspection: non-distended Palpation: soft, No firm and tender (Epigastric right upper quadrant) Skin General: jaundice Neuro General: alert, awake and oriented x3 Cognition: normal cognition Speech: speech normal Gait: normal gait Extrem General: normal to inspection and capillary refill normal Psych Appearance: grossly normal and well kempt Course Orders Ordered: ED Orders 06/24/19 08:20 Basic Metabolic Panel Stat Complete Blood Count AUTO DIFF Stat Hepatic (Liver) Panel Stat Lactate (Lactic Acid) Stat Lipase Stat Procalcitonin Stat Discontinued Medications Hydromorphone HCl (Dilaudid) 1 mg IV NOW ONE Stop: 06/24/19 08:10 Last Admin: 06/24/19 08:24 Dose: 1 mg Documented by: TOM Ondansetron HCl (Zofran) 4 mg IV NOW ONE Stop: 06/24/19 08:29 Last Admin: 06/24/19 08:31 Dose: 4 mg Documented by: TOM Vital Signs Vital signs: Vital Signs - 8 hr 06/24/19 08:06 06/24/19 08:34 06/24/19 09:00 Temperature 98 F Pulse Rate 78 67 81 Respiratory Rate 13 16 16 Blood Pressure 205/101 H Blood Pressure [Left Arm] 180/81 H 148/74 H Pulse Oximetry 100 97 96 06/24/19 09:30 06/24/19 10:04 06/24/19 10:30 Temperature Pulse Rate 75 71 71 Respiratory Rate 16 16 16 Blood Pressure Blood Pressure [Left Arm] 139/84 135/79 143/87 H Pulse Oximetry 97 96 98 06/24/19 11:00 06/24/19 11:47 Temperature Pulse Rate 76 73 Respiratory Rate 16 16 Blood Pressure Blood Pressure [Left Arm] 138/85 134/89 Pulse Oximetry 97 98 Medical Decision Making Medical Records Medical records reviewed: Yes I reviewed the patient's medical records. Lab Data Lab results reviewed: Yes I reviewed the patient's lab results. Result diagrams: 06/24/19 08:20 06/24/19 08:20 Labs: Lab Results 06/24/19 06/24/19 06/24/19 Range/Units 08:20 08:20 08:20 WBC 10.3 (4.5-11.0) X10^3/uL RBC 4.82 (4.0-5.2) X10^6/uL Hgb 13.4 (12.0-16.0) g/dL Hct 39.8 (36-46) % MCV 82.6 (80-100) fL MCH 27.7 (26-34) PG MCHC 33.6 (30-36) % RDW 13.9 (11.6-14.8) % Plt Count 212 (150-400) X10^3/uL Neut % (Auto) 83.0 H (50-75) % Lymph % (Auto) 10.1 L (25-40) % Person % (Auto) 5.3 (3-14) % Eos % (Auto) 0.9 L (2-4) % Baso % (Auto) 0.7 (0-2) % Neut # (Auto) 8500 H (5545-8363) /uL Lymph # (Auto) 1000 L (9679-1277) /uL Person # (Auto) 500 (0-900) /uL Eos # (Auto) 100 (0-450) /uL Baso # (Auto) 100 (0-100) /uL Sodium 137 (137-145) mmol/L Potassium 3.9 (3.4-5.1) mmol/L Chloride 103 (98-107) mmol/L Carbon Dioxide 22 (22-32) mmol/L BUN 7 (7-17) mg/dL Creatinine 0.53 (0.52-1.04) mg/dL Estimated GFR > 60.0 (>60) mL/min BUN/Creatinine Ratio 13.2 (6-22) Glucose 104 H (70-100) mg/dL Lactate (0.7-2.1) mmol/L Calcium 9.9 (8.4-10.2) mg/dL Total Bilirubin 4.6 H (0.2-1.3) mg/dL Conjugated Bilirubin 1.5 H (0.0-0.3) md/dL Unconjugated Bilirubin 1.3 H (0.0-1.1) mg/dL AST 276 H (14-36) IU/L ALT 440 H (<35) IU/L Alkaline Phosphatase 283 H (38-126) U/L Total Protein 8.5 H (6.3-8.2) g/dL Albumin 4.5 (3.5-5.0) g/dL Globulin 4.0 (1.7-4.1) g/dL Albumin/Globulin Ratio 1.1 (1.0-2.8) Lipase (23-300) U/L Procalcitonin 0.06 (<0.5) ng/mL 06/24/19 06/24/19 Range/Units 08:20 08:20 WBC (4.5-11.0) X10^3/uL RBC (4.0-5.2) X10^6/uL Hgb (12.0-16.0) g/dL Hct (36-46) % MCV (80-100) fL MCH (26-34) PG MCHC (30-36) % RDW (11.6-14.8) % Plt Count (150-400) X10^3/uL Neut % (Auto) (50-75) % Lymph % (Auto) (25-40) % Person % (Auto) (3-14) % Eos % (Auto) (2-4) % Baso % (Auto) (0-2) % Neut # (Auto) (0899-3267) /uL Lymph # (Auto) (8970-1265) /uL Person # (Auto) (0-900) /uL Eos # (Auto) (0-450) /uL Baso # (Auto) (0-100) /uL Sodium (137-145) mmol/L Potassium (3.4-5.1) mmol/L Chloride (98-107) mmol/L Carbon Dioxide (22-32) mmol/L BUN (7-17) mg/dL Creatinine (0.52-1.04) mg/dL Estimated GFR (>60) mL/min BUN/Creatinine Ratio (6-22) Glucose (70-100) mg/dL Lactate 1.0 (0.7-2.1) mmol/L Calcium (8.4-10.2) mg/dL Total Bilirubin (0.2-1.3) mg/dL Conjugated Bilirubin (0.0-0.3) md/dL Unconjugated Bilirubin (0.0-1.1) mg/dL AST (14-36) IU/L ALT (<35) IU/L Alkaline Phosphatase (38-126) U/L Total Protein (6.3-8.2) g/dL Albumin (3.5-5.0) g/dL Globulin (1.7-4.1) g/dL Albumin/Globulin Ratio (1.0-2.8) Lipase 108 (23-300) U/L Procalcitonin (<0.5) ng/mL Imaging Data MRI ABD: Radiologist's Impression: [address] [address] Magnetic Resonance Report Signed Patient: Taylor Cazares CMR#: [id number] : 1985Acct:[id number] Age/Sex: 33 / FDate of Service: 06/22/19 Loc: ED Accession Number: [id number] Procedure: MR abdomen wo con Ordering Provider: Juan Antonio Alcocer MD PROCEDURE: MR ABDOMEN WO CON INDICATIONS: jaundice post lap choly r/o injury vs cbd stone TECHNIQUE: Coronal HASTE through the abdomen, axial 2-D FLASH in- and [id number], and breath-hold T2 FSE with fat saturation through the biliary system and pancreas. Oblique coronal and axial thin-slice HASTE, radial thick-slab HASTE centered on the extrahepatic bile ducts. Intravenous secretin: Not requested. COMPARISON: [facility], , US ABDOMEN LIMITED, 06/18/2019, 19:57. FINDINGS: Image quality: Excellent Pancreas and biliary system: Intra- and extra-hepatic biliary ducts are non dilated. Pancreas is normal in morphology, without adjacent soft tissue edema. Pancreatic duct is normal in caliber, without developmental anomalies. Gallbladder has been recently resected, and there is a small amount of free fluid within the gallbladder f hailee, as expected. The distal common duct tapers in caliber and normally, at the ampulla. No intraluminal filling defect is seen that would indicate presence of retained stone. Common duct caliber at the pancreatic head is 7 mm. Other solid organs: Liver is normal in size. Spleen is normal in size. No adrenal nodules. Both kidneys are normal in size, without hydronephrosis. Nodes and vessels: No retroperitoneal or mesenteric adenopathy by size criteria. Aorta and inferior vena cava are normal in size. Bowel and peritoneum: Unenhanced bowel loops are normal in caliber. No free fluid. Lung bases: No basal pleural effusions. Heart size is normal. Bones and soft tissues: No ventral hernias. Bone marrow is of normal overall signal. IMPRESSION: Expected small degree of free fluid at the gallbladder fossa in this patient who has recently undergone cholecystectomy. There is no biliary distention with the common duct measuring up to 7 mm. The common duct at the pancreatic head area tapers normally at the ampulla level, and an impacted distal common duct calculus at the ampulla is not seen. In MR cholangiography there is a very short segment of the lumen of the distal duct within the ampulla itself which is normally in apposition, where a small ampullary stone conceivably could be present. This would require endoscopy for accurate detection. However, based on the imaging findings of this study such a circumstance is not considered to be present. The calculi present within the gallbladder lumen on prior ultrasound 06/18/19 had measured approximately 5 mm in diameter each and such calculi would be easily visible within the lumen of the common duct. Dictated by: Jacob Kilgore M.D. on 06/22/2019 at 14:08 Approved by: Jacob Kilgore M.D. on 06/22/2019 at 14:21 [facility] Narrative Medical decision making narrative: The MRI report included in this note is for reference purpose only. Was not performed during this visit. Was performed on 06/22/2019 during her last visit here in the emergency department. Discussed the case with who's on-call for General surgery who discussed the case with Dr. Alcocer who was the operative provider. They both recommend that the patient be transferred to a facility that has GI capability and the capability of doing he ERCP. I discussed the case with Dr. sanderson with GI at [facility] who agrees to see the patient in transfer. I discussed the case with with Internal Medicine who accepts the patient for transfer on behalf of Dr. Pereira. I discussed the transfer with the patient and the reasons for the transfer. Patient's pain is better after medication. She is stable for transport. Discharge Plan Departure Patient Disposition: [facility] Clinical Impression: Post-operative pain, Jaundice, Hyperbilirubinemia Prescriptions: No Action Nexplanon 68 mg implant See Rx Instructions .ROUTE .COMPLEX RF: 0 ibuprofen 400 mg Tablet 400 mg PO Q8H PRN (Reason: Pain (Scale Score 1-3)) RF: 0 oxycodone-acetaminophen [Percocet] 5-325 mg tablet See Rx Instructions .ROUTE .COMPLEX PRN (Reason: painful procedure) Qty: 14 RF: 0 Referrals: Leah Martinez DO [Primary Care Provider] -
[2019-06-24] MEDS: HYDROMORPHONE 1 MG INJ IV (08:24)
[2019-06-24 08:26] LABS: Add Manual Diff / Slide Review NO; Basophils Absolute Auto 100 /uL (0-100); Basophils Percent Auto 0.7 % (0-2); Eosinophils Absolute Auto 100 /uL (0-450); Eosinophils Percent Auto 0.9 % (2-4); Hematocrit 39.8 % (36-46); Hemoglobin 13.4 g/dL (12.0-16.0); Lymphocytes Absolute Auto 1000 /uL (1100-4500); Lymphocytes Percent Auto 10.1 % (25-40); Mean Corpuscular HGB Conc 33.6 % (30-36); Mean Corpuscular Hemoglobin 27.7 PG (26-34); Mean Corpuscular Volume 82.6 fL (80-100); Monocytes Absolute Auto 500 /uL (0-900); Monocytes Percent Auto 5.3 % (3-14); Neutrophils Absolute Auto 8500 /uL (1500-7000); Platelet Count 212 X10^3/uL (150-400); Red Blood Cell Count 4.82 X10^6/uL (4.0-5.2); Red Cell Distribution Width 13.9 % (11.6-14.8); White Blood Cell Count 10.3 X10^3/uL (4.5-11.0)
[2019-06-24] MEDS: ONDANSETRON 4 MG/2 ML INJ IV (08:31)
[2019-06-24 08:37] LABS: Alanine Aminotransferase 440 IU/L (<35); Albumin 4.5 g/dL (3.5-5.0); Albumin Globulin Ratio 1.1 (1.0-2.8); Alkaline Phosphatase 283 U/L (38-126); Aspartate Aminotransferase 276 IU/L (14-36); BUN Creatinine Ratio 13.2 (6-22); Bilirubin Conjugated 1.5 md/dL (0.0-0.3); Bilirubin Total 4.6 mg/dL (0.2-1.3); Bilirubin Unconjugated 1.3 mg/dL (0.0-1.1); Blood Urea Nitrogen 7 mg/dL (7-17); Calcium 9.9 mg/dL (8.4-10.2); Carbon Dioxide 22 mmol/L (22-32); Chloride 103 mmol/L (98-107); Estimated Glomerular Filt Rate > 60.0 mL/min (>60); Glucose 104 mg/dL (70-100); HEMOLYSIS 28 (0-50); Lipase 108 U/L (23-300); Potassium 3.9 mmol/L (3.4-5.1); Sodium 137 mmol/L (137-145); Total Protein 8.5 g/dL (6.3-8.2)
[2019-06-24 08:52] LABS: Procalcitonin 0.06 ng/mL (<0.5)
== END 2019-06-24 12:24 | disposition short-term general hospital (02) ==
PROVIDERS: Emergency Provider Emergency Medicine; PCP Family Medicine
DX: G89.18 Other acute postprocedural pain (principal); R17 Unspecified jaundice; E80.6 Other disorders of bilirubin metabolism
CPT/HCPCS: 36415; 80048; 80076; 83605; 83690; 84145; 85025; 96374; 96375; 99284; J1170; J2405

== ENCOUNTER → 2019-07-02 10:15 | Outpatient (CLI) | payer OTHER, SELFPAY ==
[2019-07-02 09:55] VITALS: BMI 32.3
[2019-07-02 11:44] LABS: Add Manual Diff / Slide Review NO; Basophils Absolute Auto 100 /uL (0-100); Eosinophils Absolute Auto 100 /uL (0-450); Eosinophils Percent Auto 1.4 % (2-4); Hematocrit 37.6 % (36-46); Hemoglobin 12.6 g/dL (12.0-16.0); Lymphocytes Absolute Auto 1200 /uL (1100-4500); Lymphocytes Percent Auto 14.6 % (25-40); Mean Corpuscular HGB Conc 33.4 % (30-36); Mean Corpuscular Hemoglobin 28.1 PG (26-34); Mean Corpuscular Volume 84.2 fL (80-100); Monocytes Absolute Auto 400 /uL (0-900); Monocytes Percent Auto 4.8 % (3-14); Neutrophils Absolute Auto 6600 /uL (1500-7000); Neutrophils Percent Auto 78.2 % (50-75); Platelet Count 230 X10^3/uL (150-400); Red Blood Cell Count 4.47 X10^6/uL (4.0-5.2); Red Cell Distribution Width 14.9 % (11.6-14.8); White Blood Cell Count 8.5 X10^3/uL (4.5-11.0)
[2019-07-02 12:01] LABS: Alanine Aminotransferase 98 IU/L (<35); Albumin 3.9 g/dL (3.5-5.0); Albumin Globulin Ratio 1.3 (1.0-2.8); Alkaline Phosphatase 123 U/L (38-126); Aspartate Aminotransferase 31 IU/L (14-36); Bilirubin Total 0.8 mg/dL (0.2-1.3); Bilirubin Unconjugated 0.3 mg/dL (0.0-1.1); Globulin 3.1 g/dL (1.7-4.1)
[2019-07-02 12:02] LABS: HEMOLYSIS < 15 (0-50)
== END ==
PROVIDERS: PCP Family Medicine; Referring Provider Specialist; Visit Provider Specialist
DX: E80.6 Other disorders of bilirubin metabolism (principal); K80.50 Calculus of bile duct without cholangitis or cholecystitis without obstruction
CPT/HCPCS: 36415; 80076; 85025

== ENCOUNTER → 2019-10-27 09:51 | Outpatient (CLI) | payer OTHER, SELFPAY ==
[2019-10-27 08:47] VITALS: BMI 32.3
[2019-10-28 03:42] LABS: COVID19 Sendout Not Detected (Not Detect)
== END ==
PROVIDERS: PCP Family Medicine; Visit Provider Physician Assistant
DX: Z11.59 Encounter for screening for other viral diseases (principal)
CPT/HCPCS: 87635

== ENCOUNTER → 2020-07-24 08:16 | Outpatient (CLI) | payer OTHER, SELFPAY ==
[2019-10-27 08:47] VITALS: BMI 32.3
[2020-07-24 09:37] LABS: Alanine Aminotransferase 21 IU/L (<35); Albumin Globulin Ratio 1.3 (1.0-2.8); Alkaline Phosphatase 69 U/L (38-126); Aspartate Aminotransferase 20 IU/L (14-36); BUN Creatinine Ratio 15.4 (6-22); Bilirubin Total 0.3 mg/dL (0.2-1.3); Blood Urea Nitrogen 10 mg/dL (7-17); Calcium 9.3 mg/dL (8.4-10.2); Carbon Dioxide 24 mmol/L (22-32); Chloride 106 mmol/L (98-107); Cholesterol 229 mg/dL (140-199); Estimated Glomerular Filt Rate > 60.0 mL/min (>60); Globulin 3.2 g/dL (1.7-4.1); Glucose 96 mg/dL (70-100); HDL Cholesterol 41 mg/dL (40-60); HEMOLYSIS < 15 (0-50); LDL Cholesterol Calculated 172 mg/dL (<100); Sodium 137 mmol/L (137-145); Total Protein 7.2 g/dL (6.3-8.2); Triglycerides 81 mg/dL (35-150)
== END ==
PROVIDERS: PCP Family Medicine; Referring Provider Family Medicine; Visit Provider Family Medicine
DX: R74.01 Elevation of levels of liver transaminase levels (principal)
CPT/HCPCS: 36415; 80053; 80061

== ENCOUNTER → 2020-10-04 11:31 | Outpatient (CLI) | payer OTHER, SELFPAY ==
[2019-10-27 08:47] VITALS: BMI 32.3
[2020-10-04 17:06] LABS: Free T4, Direct Thyroxine 0.89 ng/dL (0.78-2.19)
[2020-10-04 17:20] LABS: Thyroid Stimulating Hormone 2.44 uIU/mL (0.47-4.68)
== END ==
PROVIDERS: PCP Family Medicine; Referring Provider Obstetrics & Gynecology; Visit Provider Obstetrics & Gynecology
DX: E28.2 Polycystic ovarian syndrome (principal)
CPT/HCPCS: 36415; 84439; 84443

== ENCOUNTER → 2021-08-11 14:01 | Outpatient (CLI) | payer OTHER, SELFPAY ==
[2019-10-27 08:47] VITALS: BMI 32.3
[2021-08-11 15:42] LABS: Add Manual Diff / Slide Review NO; Basophils Absolute Auto 100 /uL (0-100); Basophils Percent Auto 0.5 % (0-2); Eosinophils Absolute Auto 300 /uL (0-450); Eosinophils Percent Auto 2.4 % (2-4); Hematocrit 33.1 % (36-46); Hemoglobin 10.9 g/dL (12.0-16.0); Lymphocytes Absolute Auto 1100 /uL (1100-4500); Lymphocytes Percent Auto 9.4 % (25-40); Mean Corpuscular Hemoglobin 24.8 PG (26-34); Mean Corpuscular Volume 75.2 fL (80-100); Monocytes Absolute Auto 700 /uL (0-900); Monocytes Percent Auto 6.2 % (3-14); Neutrophils Absolute Auto 9500 /uL (1500-7000); Neutrophils Percent Auto 81.5 % (50-75); Platelet Count 265 X10^3/uL (150-400); Red Blood Cell Count 4.41 X10^6/uL (4.0-5.2); Red Cell Distribution Width 14.7 % (11.6-14.8); White Blood Cell Count 11.6 X10^3/uL (4.5-11.0)
[2021-08-11 16:09] LABS: Alanine Aminotransferase 14 IU/L (<35); Albumin 3.8 g/dL (3.5-5.0); Albumin Globulin Ratio 1.1 (1.0-2.8); Alkaline Phosphatase 78 U/L (38-126); Aspartate Aminotransferase 18 IU/L (14-36); BUN Creatinine Ratio 14.9 (6-22); Bilirubin Total 0.2 mg/dL (0.2-1.3); Blood Urea Nitrogen 10 mg/dL (7-17); Calcium 8.6 mg/dL (8.4-10.2); Carbon Dioxide 28 mmol/L (22-32); Chloride 103 mmol/L (98-107); Estimated Glomerular Filt Rate > 60 mL/min (>60); Globulin 3.5 g/dL (1.7-4.1); Glucose 82 mg/dL (70-100); HEMOLYSIS < 15 (0-50); Potassium 3.8 mmol/L (3.4-5.1); Sodium 138 mmol/L (137-145); Total Protein 7.3 g/dL (6.3-8.2)
[2021-08-11 17:09] LABS: TSH w/ Reflex to FT4 2.54 uIU/mL (0.47-4.68)
[2021-08-11 17:31] LABS: Appearance Urine UA CLEAR; Bilirubin Urine UA NEGATIVE (NEGATIVE); Color Urine UA YELLOW; Glucose Urine UA NEGATIVE (Negative); Ketones Urine UA TRACE (NEGATIVE); Leukocyte Esterase Urine UA TRACE (NEGATIVE); Nitrite Urine UA NEGATIVE (Negative); Occult Blood Urine UA 3+ (Negative); Protein Urine UA TRACE (Negative); Urobilinogen Urine UA 0.2 E.U./dL (0.2)
[2021-08-11 17:34] LABS: pH Urine UA 5.5 (4.5-8.0)
[2021-08-11 17:42] LABS: Squamous Epithelial Cell Urine 1-5 /HPF (0-5/HPF); WBC Urine 1-5/HPF (0-5/HPF)
[2021-08-11 17:43] LABS: Bacteria Urine Occasional (0-1); Culture Indicated Urine Specimen Cultured; RBC Urine 0-1/HPF (0-5/HPF)
[2021-08-11 18:40] LABS: Clostridium Difficile Tox PCR Negative for C. diff (Negative)
[2021-08-12 14:05] LABS: HEMOLYSIS < 15 (0-50); Iron 28 ug/dL (37-170)
[2021-08-12 14:16] LABS: Percent Iron Saturation 9 % (15-50); Total Iron Binding Capacity 311 ug/dL (265-497); Transferrin 219 mg/dL (206-381)
[2021-08-12 14:40] LABS: Ferritin 29 ng/mL (6-137)
== END ==
PROVIDERS: PCP Family Medicine; Referring Provider Physician Assistant; Visit Provider Physician Assistant
DX: R10.9 Unspecified abdominal pain (principal); R19.7 Diarrhea, unspecified; Z83.79 Family history of other diseases of the digestive system; D64.9 Anemia, unspecified
CPT/HCPCS: 36415; 80053; 81001; 82728; 83540; 83550; 84443; 85025; 87045; 87086; 87177; 87493; 87899

== ENCOUNTER → 2021-09-01 10:28 | Outpatient (CLI) | payer OTHER, SELFPAY ==
[2019-10-27 08:47] VITALS: BMI 32.3
--- NOTE | 2021-09-01 10:29 | DI.US.S_ITS ---
PROCEDURE: US PELVIC COMPLETE INDICATIONS: Hx of PCOS; Lower abdominal pain; cramping TECHNIQUE: Real-time scanning was performed of the pelvic organs, with image documentation. Additional endovaginal scanning was necessary due to incomplete visualization of the adnexal and endometrial structures by transabdominal scanning. COMPARISON: None. FINDINGS: Uterus: Uterus is anteverted and normal in size at 8.4 x 2.9 x 3.8 cm. The myometrium is homogeneous. The endometrium measures 2-3 mm combined thickness. Within the cervix, there is a 1.6 x 0.7 x 1.6 cm complex cystic region. Ovaries: The right ovary measures 2.9 x 2.6 x 2.6 cm. Within the right ovary, there is a 2.5 cm simple appearing cystic follicle with a daughter cyst along its wall, which is considered to be within physiologic limits. The left ovary measures 2.5 x 1.7 x 1.6 cm. The ovaries have a normal sonographic appearance. In this patient with this given history, scrutiny is given to ovaries for the mobile of follicles. There does appear to be less than 12 follicles involving each ovary. No adnexal masses are seen. Other: No pathologic free abdominal or pelvic fluid. IMPRESSION: Within the cervix, there is a 1.6 x 0.7 x 1.6 cm cystic structure. Less than 12 follicles can be seen involving each ovary. We strive to produce accurate, complete, and clear reports of imaging services. To assist us in improving patient care, this report was composed using standard report templates and voice recognition software. Therefore, it may contain abnormal punctuation, insertions and/or omissions. Occasional wrong-word or sound-alike substitutions may occur. Though we review the report and make efforts to correct it, we do recommend that the report be read carefully in proper context to recognize any text inaccuracies. Dictated by: Carl Murguia M.D. on 09/01/2021 at 10:20 Approved by: Carl Murguia M.D. on 09/01/2021 at 10:22
== END ==
PROVIDERS: PCP Family Medicine; Referring Provider Physician Assistant; Visit Provider Physician Assistant
DX: R10.30 Lower abdominal pain, unspecified (principal)
CPT/HCPCS: 76830; 76856

== ENCOUNTER → 2021-11-10 16:00 | Outpatient (CLI) | payer OTHER, SELFPAY ==
[2019-10-27 08:47] VITALS: BMI 32.3
[2021-11-10 18:36] LABS: Cancer Antigen 125 12.3 U/mL (0-35)
== END ==
PROVIDERS: PCP Family Medicine; Referring Provider Obstetrics & Gynecology; Visit Provider Obstetrics & Gynecology
DX: N83.209 Unspecified ovarian cyst, unspecified side (principal)
CPT/HCPCS: 36415; 86304

== ENCOUNTER → 2021-12-22 11:52 | Outpatient (CLI) | payer OTHER, SELFPAY ==
[2019-10-27 08:47] VITALS: BMI 32.3
--- NOTE | 2021-12-22 11:52 | DI.US.S_ITS ---
PROCEDURE: US PELVIC COMPLETE INDICATIONS: F/U bilat ovarian cysts TECHNIQUE: Real-time scanning was performed of the pelvic organs, with image documentation. Additional endovaginal scanning was necessary due to incomplete visualization of the adnexal and endometrial structures by transabdominal scanning. COMPARISON: [facility], US, US PELVIC COMPLETE, 11/10/2021, 15:48. FINDINGS: Uterus: Uterus is anteverted and normal in size at 8.8 x 3.2 x 3.8 cm. The myometrium is homogeneous. The endometrium measures 3.2 mm combined thickness. Ovaries: The right ovary measures 1.8 x 1.8 x 2.5 cm, with a calculated ovarian volume of 4.1 cc. The left ovary measures 2.4 x 1.4 x 1.2 cm, with a calculated ovarian volume of 2.1 cc. The ovaries have a normal sonographic appearance. Less than 12 follicles can be seen in each ovary. No adnexal masses are seen. Other: No pathologic free abdominal or pelvic fluid. IMPRESSION: Resolution of previously visualized ovarian cyst. We strive to produce accurate, complete, and clear reports of imaging services. To assist us in improving patient care, this report was composed using standard report templates and voice recognition software. Therefore, it may contain abnormal punctuation, insertions and/or omissions. Occasional wrong-word or sound-alike substitutions may occur. Though we review the report and make efforts to correct it, we do recommend that the report be read carefully in proper context to recognize any text inaccuracies. Dictated by: Piyush Ramirez Deo Interpreted: Simon Cruz MD on 12/22/2021 at 13:37 Transcribed by: BRIAN on 12/22/2021 at 13:38 Approved by: Simon Cruz M.D. on 12/22/2021 at 16:48
== END ==
PROVIDERS: PCP Family Medicine; Referring Provider Obstetrics & Gynecology; Visit Provider Obstetrics & Gynecology
DX: N83.201 Unspecified ovarian cyst, right side (principal); N83.202 Unspecified ovarian cyst, left side; N88.8 Other specified noninflammatory disorders of cervix uteri; E28.2 Polycystic ovarian syndrome
CPT/HCPCS: 76830; 76856

== ENCOUNTER → 2022-04-06 09:38 | Outpatient (CLI) | payer OTHER, SELFPAY ==
[2021-12-22 16:50] VITALS: BMI 32.3
[2022-04-06 10:32] LABS: Add Manual Diff / Slide Review NO; Basophils Absolute Auto 100 /uL (0-100); Basophils Percent Auto 0.9 % (0-2); Eosinophils Absolute Auto 100 /uL (0-450); Eosinophils Percent Auto 0.9 % (2-4); Hematocrit 37.2 % (36-46); Hemoglobin 11.9 g/dL (12.0-16.0); Lymphocytes Absolute Auto 1200 /uL (1100-4500); Lymphocytes Percent Auto 16.6 % (25-40); Mean Corpuscular HGB Conc 32.2 % (30-36); Mean Corpuscular Hemoglobin 25.2 PG (26-34); Mean Corpuscular Volume 78.2 fL (80-100); Monocytes Absolute Auto 400 /uL (0-900); Monocytes Percent Auto 5.5 % (3-14); Neutrophils Absolute Auto 5600 /uL (1500-7000); Neutrophils Percent Auto 76.1 % (50-75); Platelet Count 215 X10^3/uL (150-400); Red Blood Cell Count 4.75 X10^6/uL (4.0-5.2); Red Cell Distribution Width 15.6 % (11.6-14.8); White Blood Cell Count 7.4 X10^3/uL (4.5-11.0)
[2022-04-06 10:58] LABS: Alanine Aminotransferase 19 IU/L (<35); Albumin 4.2 g/dL (3.5-5.0); Albumin Globulin Ratio 1.1 (1.0-2.8); Alkaline Phosphatase 82 U/L (38-126); Aspartate Aminotransferase 24 IU/L (14-36); BUN Creatinine Ratio 14.3 (6-22); Bilirubin Total 0.2 mg/dL (0.2-1.3); Blood Urea Nitrogen 10 mg/dL (7-17); Calcium 8.8 mg/dL (8.4-10.2); Carbon Dioxide 25 mmol/L (22-32); Chloride 106 mmol/L (98-107); Cholesterol 250 mg/dL (140-199); Estimated Glomerular Filt Rate > 60 mL/min (>60); Globulin 3.7 g/dL (1.7-4.1); Glucose 91 mg/dL (70-100); HDL Cholesterol 46 mg/dL (40-60); HEMOLYSIS < 15 (0-50); LDL Cholesterol Calculated 188 mg/dL (<100); Potassium 4.3 mmol/L (3.4-5.1); Sodium 141 mmol/L (137-145); Total Protein 7.9 g/dL (6.3-8.2); Triglycerides 81 mg/dL (35-150)
[2022-04-06 11:16] LABS: TSH w/ Reflex to FT4 2.37 uIU/mL (0.47-4.68)
== END ==
PROVIDERS: PCP Family Medicine; Referring Provider Family Medicine; Visit Provider Family Medicine
DX: D50.9 Iron deficiency anemia, unspecified (principal); E78.5 Hyperlipidemia, unspecified; E28.2 Polycystic ovarian syndrome
CPT/HCPCS: 36415; 80053; 80061; 84443; 85025

== ENCOUNTER 2023-03-22 12:48 | Inpatient (IN) | payer OTHER, SELFPAY ==
[2021-12-22 16:50] VITALS: BMI 32.3
[2023-03-22] VITALS (16 sets, daily range): BP systolic 142–182; BP diastolic 70–110; PULSE 88–106; RESP 16–24; TEMP 36.8–36.9; O2SAT 96–100; BMI 36.3; BMI 38.4
[2023-03-22 14:18] LABS: Add Manual Diff / Slide Review NO; Basophils Absolute Auto 100 /uL (0-100); Basophils Percent Auto 0.6 % (0-2); Eosinophils Absolute Auto 300 /uL (0-450); Eosinophils Percent Auto 1.7 % (2-4); Hemoglobin 11.1 g/dL (12.0-16.0); Lymphocytes Absolute Auto 900 /uL (1100-4500); Lymphocytes Percent Auto 6.2 % (25-40); Mean Corpuscular HGB Conc 32.6 % (30-36); Mean Corpuscular Volume 73.6 fL (80-100); Monocytes Absolute Auto 700 /uL (0-900); Monocytes Percent Auto 4.8 % (3-14); Neutrophils Absolute Auto 12700 /uL (1500-7000); Neutrophils Percent Auto 86.7 % (50-75); Platelet Count 314 X10^3/uL (150-400); Red Blood Cell Count 4.63 X10^6/uL (4.0-5.2); Red Cell Distribution Width 15.1 % (11.6-14.8); White Blood Cell Count 14.6 X10^3/uL (4.5-11.0)
[2023-03-22 14:29] LABS: Alanine Aminotransferase 20 IU/L (<35); Albumin 3.9 g/dL (3.5-5.0); Alkaline Phosphatase 102 U/L (38-126); Aspartate Aminotransferase 18 IU/L (14-36); BUN Creatinine Ratio 9.7 (6-22); Bilirubin Total 0.5 mg/dL (0.2-1.3); Blood Urea Nitrogen 6 mg/dL (7-17); Calcium 9.5 mg/dL (8.4-10.2); Carbon Dioxide 25 mmol/L (22-32); Chloride 101 mmol/L (98-107); Estimated Glomerular Filt Rate > 60 mL/min (>60); Globulin 3.9 g/dL (1.7-4.1); Glucose 88 mg/dL (70-100); HEMOLYSIS < 15 (0-50); Lipase 71 U/L (23-300); Potassium 3.1 mmol/L (3.4-5.1); Sodium 136 mmol/L (137-145); Total Protein 7.8 g/dL (6.3-8.2)
[2023-03-22 14:48] LABS: Adenovirus F 40/41 Not Detected (Not Detect); Astrovirus Not Detected (Not Detect); Campylobacter Not Detected (Not Detect); Clostridium difficile toxin AB Not Detected (Not Detect); Cryptosporidium Not Detected (Not Detect); Cyclospora cayetanensis Not Detected (Not Detect); Entamoeba histolytica Not Detected (Not Detect); Enteroaggregative E.coli Not Detected (Not Detect); Enteropathogenic E.coli Not Detected (Not Detect); Enterotoxigenic E.coli It/st Not Detected (Not Detect); Giardia lamblia Not Detected (Not Detect); Norovirus GI/GII Not Detected (Not Detect); Plesiomonsa shigelloides Not Detected (Not Detect); Rotavirus A Not Detected (Not Detect); Salmonella Not Detected (Not Detect); Sapovirus Not Detected (Not Detect); Shiga-like toxin-prod E.coli Not Detected (Not Detect); Shigella/Enteroinvasive E.coli Not Detected (Not Detect); Vibrio Not Detected (Not Detect); Vibrio cholerae Not Detected (Not Detect); Yersinia enterocolitica Not Detected (Not Detect)
[2023-03-22] MEDS: ACETAMINOPHEN 325 MG TABLET 650 MG PO (15:33)
[2023-03-22] MEDS: SODIUM CHLORIDE 0.9% 1,000 ML 1000 ML IV (16:03)
[2023-03-22 16:31] LABS: Bacteria Urine Occasional (0-1); RBC Urine 0-1/HPF (0-5/HPF); Squamous Epithelial Cell Urine 1-5 /HPF (0-5/HPF); WBC Urine 1-5/HPF (0-5/HPF)
[2023-03-22 16:32] LABS: Culture Indicated Urine Cult Not Indicated
[2023-03-22] MEDS: KETOROLAC 30 MG/ML VIAL 15 MG IV (18:07)
--- NOTE | 2023-03-22 18:15 | ED.GENADULT ---
HPI - General Adult General Chief complaint: Abdominal Pain Stated complaint: ABD Pain Time Seen by Provider: 03/22/23 16:52 Source: patient Mode of arrival: Ambulatory History of Present Illness HPI narrative: 37-year-old woman with a history of depression presents with 2 weeks of abdominal pain worse on the left side but now with diffuse tenderness. Frequent diarrhea no fevers, nausea but no vomiting. She does note that the diarrhea has been enough that she is now beginning to notice some bright red blood after her diarrhea stools. She has already had her gallbladder removed. She is not having chest pain or palpitations. She has never had similar symptoms. Last menstrual cycle was about 2 weeks ago and she has an implanted hormonal control option Related Data Previous Rx's Medication Instructions Recorded sertraline 100 mg tablet See Rx Instructions PO DAILY #100 05/09/22 tabs Allergies Allergy/AdvReac Type Severity Reaction Status Date / Time No Known Drug Allergies Allergy Verified 03/22/23 13:09 Review of Systems Review of Systems Narrative: Pertinent positive and negative findings as per HPI Patient History Medical History PCOS (polycystic ovarian syndrome) Jaundice of recent onset Cholelithiasis Hirsutism Hyperlipidemia PCOS (polycystic ovarian syndrome) PCOS (polycystic ovarian syndrome) 1 para 1 (normal spontaneous vaginal delivery) (2013) Surgical History S/P laparoscopic cholecystectomy Family History Father Hyperlipidemia Social History marital status: number of children: 4 household members: spouse education level: college occupational status: employed Smoking Status: Never smoker alcohol intake: never Smoking Status: Never smoker alcohol intake frequency: 0-2 drinks per day Substance Use Type: does not use Exam Initial Vital Signs Initial Vital Signs: Vital Signs Temperature 98.2 F 03/22/23 13:04 Pulse Rate 98 H 03/22/23 13:04 Respiratory Rate 16 03/22/23 13:04 Blood Pressure 182/102 H 03/22/23 13:04 Pulse Oximetry 97 03/22/23 13:04 Oxygen Delivery Method Room Air 03/22/23 13:04 General: Healthy appearing, in obvious distress. Standing at bedside rocking back and forth unable to find a comfortable position. Able to give a complete and coherent history. Well-nourished well-developed HEENT: Moist mucous membranes, normal sclera with reactive pupils, Respiratory: Lungs are clear to auscultation, no wheezing no rales no rhonchi. Full and symmetrical air movement Cardiac: Regular rate and rhythm no murmurs no bruits Abdomen: Soft, diffusely tender in all quadrants no rebound question of guarding in the lower abdomen Skin: Warm and dry, no rashes Neurologic: Grossly neurologically intact with no obvious asymmetries or abnormalities Extremities: No trauma, well perfused Psych: Cooperative, appropriate insight and affect Course Orders Ordered: Acetaminophen (Acetaminophen 325 Mg Tablet) 650 mg PO Q6H [facility] Last Admin: 03/23/23 03:01 Dose: 650 mg Documented By: Admin: 03/22/23 22:57 Dose: Not Given Documented By: JULES Hydrocodone Bitart/Acetaminophen (Hydrocodone/Acet 5/325 Tablet) 1 tab PO Q4H PRN PRN Reason: Pain, Moderate (4-6) Last Admin: 03/22/23 22:48 Dose: 1 tab Documented By: JULES Calcium Carbonate (Calcium Carbonate 500 Mg Tab) 1,000 mg PO Q4HR PRN PRN Reason: Dyspepsia Enoxaparin Sodium (Enoxaparin 40 Mg/0.4 Ml Syringe) 40 mg SUBCUT DAILY [facility] Hydralazine HCl (Hydralazine 20 Mg/Ml Vial) 10 mg IV Q6HR PRN PRN Reason: Give if SBP >165 Sodium Chloride (Normal Saline 0.9%) 1,000 mls @ 150 mls/hr IV CONT [facility] Last Admin: 03/23/23 03:02 Dose: 150 mls/hr Documented By: JULES Loperamide HCl (Loperamide 2 Mg Capsule) 2 mg PO QID PRN PRN Reason: Diarrhea Methylprednisolone (Methylprednisolone 125 Mg/2 Ml Vial) 80 mg IV Q8H [facility] Last Admin: 03/22/23 23:10 Dose: 80 mg Documented By: JULES Naloxone HCl (Naloxone 0.4 Mg/Ml Vial) 0.2 mg IV Q2MIN PRN PRN Reason: Opiate Reversal Ondansetron HCl (Ondansetron 4 Mg/2 Ml Inj) 4 mg IV Q8HR PRN PRN Reason: Nausea And Vomiting Ondansetron HCl (Ondansetron 4 Mg Odt) 4 mg PO Q8HR PRN PRN Reason: Nausea And Vomiting Pantoprazole Sodium (Pantoprazole Dr 20 Mg Tablet) 20 mg PO 0600 [facility] Discontinued Medications Acetaminophen (Acetaminophen 325 Mg Tablet) 650 mg PO NOW ONE Stop: 03/22/23 15:29 Last Admin: 03/22/23 15:33 Dose: 650 mg Documented By: ISAAC Hydromorphone HCl (Hydromorphone 0.5 Mg Inj) 0.5 mg IV Q15MIN PRN PRN Reason: Pain, Last Admin: 03/22/23 21:40 Dose: 0.5 mg Documented By: Admin: 03/22/23 18:37 Dose: 0.5 mg Documented By: MAYRA Hydromorphone HCl (Hydromorphone 0.5 Mg Inj) 0.5 mg IV NOW ONE Stop: 03/23/23 01:42 Last Admin: 03/23/23 01:49 Dose: 0.5 mg Documented By: CARLI Sodium Chloride (Normal Saline 0.9%) 1,000 mls @ 1,000 mls/hr IV BOLUS ONE Stop: 03/22/23 15:23 Last Infusion: 03/22/23 17:58 Dose: Infused Documented By: Admin: 03/22/23 16:03 Dose: 1,000 mls/hr Documented By: GAUTAM Sodium Chloride (Normal Saline 0.9%) 1,000 mls @ 150 mls/hr IV CONT [facility] Last Admin: 03/22/23 18:37 Dose: 150 mls/hr Documented By: MAYRA Sodium Chloride (Normal Saline 0.9%) 1,000 mls @ 150 mls/hr IV CONT [facility] Last Admin: 03/23/23 00:11 Dose: 150 mls/hr Documented By: Infusion: 03/23/23 00:11 Dose: Infused Documented By: Admin: 03/22/23 22:29 Dose: 150 mls/hr Documented By: JULES POTASSIUM CHLORIDE IN WATER (Potassium Cl 10 Meq/100 Ml Nancie) 10 meq in 100 mls @ 100 mls/hr IV Q1H [facility] Stop: 03/23/23 03:14 Last Admin: 03/23/23 03:20 Dose: 100 mls/hr Documented By: Infusion: 03/23/23 02:56 Dose: Infused Documented By: Admin: 03/23/23 01:56 Dose: 100 mls/hr Documented By: Infusion: 03/23/23 01:16 Dose: Infused Documented By: Admin: 03/23/23 00:16 Dose: 100 mls/hr Documented By: Infusion: 03/22/23 23:48 Dose: Infused Documented By: Admin: 03/22/23 22:48 Dose: 100 mls/hr Documented By: Infusion: 03/22/23 22:35 Dose: Infused Documented By: Admin: 03/22/23 21:35 Dose: 100 mls/hr Documented By: EMIL Ketorolac Tromethamine (Ketorolac 30 Mg/Ml Vial) 15 mg IV NOW ONE Stop: 03/22/23 18:00 Last Admin: 03/22/23 18:07 Dose: 15 mg Documented By: MAYRA Ondansetron HCl (Ondansetron 4 Mg Odt) 4 mg PO NOW PRN PRN Reason: Nausea And Vomiting Ondansetron HCl (Ondansetron 4 Mg/2 Ml Inj) 4 mg IV NOW PRN PRN Reason: Nausea And Vomiting Last Admin: 03/22/23 18:37 Dose: 4 mg Documented By: MAYRA Vital Signs Vital signs: Vital Signs - 8 hr 03/22/23 21:00 Pulse Rate 90 Respiratory Rate 18 Blood Pressure 147/81 H Pulse Oximetry 98 Oxygen Delivery Method Room Air Medical Decision Making Lab Data 03/22/23 13:55 03/22/23 13:55 Labs: Lab Results 03/22/23 03/22/23 03/22/23 Range/Units 13:24 13:55 16:11 WBC 14.6 H (4.5-11.0) X10^3/uL RBC 4.63 (4.0-5.2) X10^6/uL Hgb 11.1 L (12.0-16.0) g/dL Hct 34.0 L (36-46) % MCV 73.6 L (80-100) fL MCH 24.0 L (26-34) PG MCHC 32.6 (30-36) % RDW 15.1 H (11.6-14.8) % Plt Count 314 (150-400) X10^3/uL Neut % (Auto) 86.7 H (50-75) % Lymph % (Auto) 6.2 L (25-40) % Cole % (Auto) 4.8 (3-14) % Eos % (Auto) 1.7 L (2-4) % Baso % (Auto) 0.6 (0-2) % Neut # (Auto) 14695 H (5039-5010) /uL Lymph # (Auto) 900 L (9005-3973) /uL Cole # (Auto) 700 (0-900) /uL Eos # (Auto) 300 (0-450) /uL Baso # (Auto) 100 (0-100) /uL Sodium 136 L (137-145) mmol/L Potassium 3.1 L (3.4-5.1) mmol/L Chloride 101 (98-107) mmol/L Carbon Dioxide 25 (22-32) mmol/L BUN 6 L (7-17) mg/dL Creatinine 0.62 (0.52-1.04) mg/dL Estimated GFR > 60 (>60) mL/min BUN/Creatinine Ratio 9.7 (6-22) Glucose 88 (70-100) mg/dL Calcium 9.5 (8.4-10.2) mg/dL Total Bilirubin 0.5 (0.2-1.3) mg/dL AST 18 (14-36) IU/L ALT 20 (<35) IU/L Alkaline Phosphatase 102 (38-126) U/L C-Reactive Protein 14.7 H (<1.0) mg/dL Total Protein 7.8 (6.3-8.2) g/dL Albumin 3.9 (3.5-5.0) g/dL Globulin 3.9 (1.7-4.1) g/dL Albumin/Globulin Ratio 1.0 (1.0-2.8) Lipase 71 (23-300) U/L Urine RBC 0-1/hpf (0-5/HPF) Urine WBC 1-5/hpf (0-5/HPF) Ur Squamous Epith Cells 1-5 /hpf (0-5/HPF) Urine Bacteria Occasional (0-1) (None) Ur Culture Indicated? Cult not indicated Stl C. cayetanensis PCR Not detected (Not Detect) Stool Rotavirus (PCR) Not detected (Not Detect) Stool Adenovirus (PCR) Not detected (Not Detect) Stool Astrovirus (PCR) Not detected (Not Detect) Stool Cryptosporidium PCR Not detected (Not Detect) Stl E.coli Shiga Tox PCR Not detected (Not Detect) St Sh/Enteroin Ecoli PCR Not detected (Not Detect) Stl Enterotoxigenic E PCR Not detected (Not Detect) Stool EPEC (PCR) Not detected (Not Detect) Stl E. histolytica PCR Not detected (Not Detect) Stool Giardia Lamblia PCR Not detected (Not Detect) Stool Sapovirus (PCR) Not detected (Not Detect) Stl P. shigelloides PCR Not detected (Not Detect) St Y.enterocolitica PCR Not detected (Not Detect) Stool Vibrio (PCR) Not detected (Not Detect) Stl Vibrio cholerae PCR Not detected (Not Detect) Stl Enteroaggr Ecoli PCR Not detected (Not Detect) Stl Norovirus GI/GII PCR Not detected (Not Detect) Campylobacter (PCR) Not detected (Not Detect) C. difficile Tox (PCR) Not detected (Not Detect) Salmonella (PCR) Not detected (Not Detect) Point of Care Testing Test Results Negative Urine Dip Bedside Urine Glucose Negative Bedside Urine Bilirubin - Negative Bedside Urine Ketone +++ 80 Urine Specific [place] 1.025 Bedside Urine Occult Blood - Negative Bedside Urine pH 6 Bedside Urine Protein +/- 15 Bedside Urine Urobilinogen - Negative Bedside Urine Nitrite - Negative Bedside Urine Leukocytes - Negative Esterase Point of care testing: Point of Care Testing Test Results Negative Urine Dip Bedside Urine Glucose Negative Bedside Urine Bilirubin - Negative Bedside Urine Ketone +++ 80 Urine Specific [place] 1.025 Bedside Urine Occult Blood - Negative Bedside Urine pH 6 Bedside Urine Protein +/- 15 Bedside Urine Urobilinogen - Negative Bedside Urine Nitrite - Negative Bedside Urine Leukocytes - Negative Esterase MDM Narrative Medical decision making narrative: CC: Abdominal pain for 2 weeks Complicating co-morbidities: Occurring with diarrhea, history of depression Data collected from: patient Medical records reviewed: Family practice notes from March 30, 2022 are reviewed. Differential considered: Colitis, intra-abdominal abscess, doubt pelvic inflammatory disease (no new partners no vaginal discharge), ruptured ovarian cyst with irritation Exam documented above, pertinent findings include: Patient with diffuse abdominal pain, standing and rocking back and forth from foot foot to try and relieve pain. Lab Test results independently reviewed as above. Pertinent findings: Urine looks dehydrated but noninfected She is not CBC shows leukocytosis at 14.6, mild anemia at 11.1 and 34.0 slight decrease from baseline. This is a microcytic anemia with MCV at 73.6. Neutrophils are significant at 86.7, platelets are appropriate Chemistries are notable for hypokalemia at 3.1. Renal function is maintained. No elevated liver tests Stool panel does not show any acute abnormalities Imaging studies independently reviewed: CT scan does not show any free air. She does have mild diffuse colon thickening. Official radiology read indicates: Mild thickening of the colon involving the ascending colon, transverse colon, and descending colon with mild pericolonic stranding. There is prominence of the proximal appendix measuring up to 7 mm in diameter. Multiple reactive appearing lymph nodes seen in the right lower quadrant. However, additional reactive lymph nodes seen throughout the abdomen. Overall, findings may represent nonspecific colitis either infectious or inflammatory in etiology. Prominence of the appendix may be secondary to colitis. However, early appendicitis not excluded. Consultations: [address] Quiñonez. We will consult if patient is admitted to the hospitalist service. Does not feel that steroids are antibiotics are indicated with lack of diagnosis. Will discuss with Hospitalist,DR Stovall Treatments: Patient has been given a L of fluid, parenteral Dilaudid, ondansetron and ketorolac. Pain is minimally improved. Will replace potassium Re-evaluations: Still significantly sore. Slightly improved with much better blood pressure after the initial dose of Dilaudid. Discussion: 37-year-old otherwise healthy woman with 2 weeks of progressive colitis symptoms, unable to sleep secondary to pain, hypokalemia. Profuse watery diarrhea. Stool does not show viral or bacterial etiology. CT scan shows diffuse colitis. Given the increasing pain, lack of sleep and continued profuse watery diarrhea we will plan on hospital admission for IV fluids, potassium replacement pain control and bowel rest. Surgical consultation. Reviewed with hospitalist. Findings are reviewed with patient who has all appropriate questions to which I do not have definitive answers. Discharge Plan Departure Patient Disposition: Admitted as Observation Clinical Impression: Colitis, Acute hypokalemia Diarrhea Qualifiers: Diarrhea type: unspecified type Qualified Code(s): R19.7 - Diarrhea, unspecified Admit Date/Time: 03/22/23 21:13 Admit Provider: Joseph Stovall
--- NOTE | 2023-03-22 18:26 | DI.CT.S_ITS ---
PROCEDURE: CT ABDOMEN PELVIS W CON INDICATIONS: diffuse abd pain TECHNIQUE: After the administration of intravenous contrast, axial sections acquired from the lung bases to the pubic symphysis. Coronal and sagittal reformats were performed. For radiation dose reduction, the following was used: automated exposure control, adjustment of mA and/or kV according to patient size. COMPARISON: None. FINDINGS: Image quality: Diagnostic. Lower Chest: No significant findings. ABDOMEN: Liver: No solid mass. Gallbladder: Status post cholecystectomy. Biliary ducts: No biliary dilation. Pancreas: No ductal dilation. Spleen: Size is within normal limits. Adrenal Glands: No adrenal nodules. Kidneys and Ureters: No hydronephrosis. No solid mass. No complex renal cystic lesion which requires follow up. Stomach and Bowel: There is mild circumferential thickening of the ascending colon and proximal transverse colon as well as the mid and distal descending colon extending to the proximal sigmoid colon. Mild pericolonic inflammatory stranding. There is also prominence of the proximal appendix measuring up to 7 mm in diameter. No significant periappendiceal stranding. However, no air is seen within the appendix. Multiple prominent right lower quadrant lymph nodes are present. However, scattered mesenteric lymph nodes are seen throughout. No evidence for bowel obstruction. Peritoneum: No abnormal intraperitoneal fluid. No free air. Ventral Wall: There is a fat-containing umbilical hernia without acute inflammation. Abdominal Nodes: No retroperitoneal or mesenteric adenopathy by size criteria. Vessels: Aorta and inferior vena cava are normal in size. PELVIS: Pelvic Organs: Unremarkable. Bladder: Unremarkable. Pelvic Nodes: No enlarged lymph nodes. Miscellaneous: No inguinal hernias are seen. Bones: Visualized osseous structures appear intact without acute fracture or focal destructive lesion. No acute compression fractures of the imaged spine. IMPRESSION: Mild thickening of the colon involving the ascending colon, transverse colon, and descending colon with mild pericolonic stranding. There is prominence of the proximal appendix measuring up to 7 mm in diameter. Multiple reactive appearing lymph nodes seen in the right lower quadrant. However, additional reactive lymph nodes seen throughout the abdomen. Overall, findings may represent nonspecific colitis either infectious or inflammatory in etiology. Prominence of the appendix may be secondary to colitis. However, early appendicitis not excluded. Other chronic findings as above. Dictated by: Lul Sweeney M.D. on 03/22/2023 at 19:07 Approved by: Lul Sweeney M.D. on 03/22/2023 at 19:14
[2023-03-22] MEDS: SODIUM CHLORIDE 0.9% 1,000 ML 150 ML IV ×2 (18:37→22:29)
[2023-03-22] MEDS: ONDANSETRON 4 MG/2 ML INJ IV (18:37)
[2023-03-22] MEDS: HYDROMORPHONE 0.5 MG INJ IV ×2 (18:37→21:40)
[2023-03-22] MEDS: POTASSIUM CHLORIDE IN WATER 10 MEQ/100 ML PIGGYBACK 100 MEQ IV ×2 (21:35→22:48)
[2023-03-22 22:26] LABS: C-Reactive Protein Quant 14.7 mg/dL (<1.0)
[2023-03-22] MEDS: HYDROCODONE/ACET 5/325 TABLET 1 TAB PO (22:48)
--- NOTE | 2023-03-22 22:51 | PM.HP.1 ---
History of Present Illness History of Present Illness Date Patient Seen: 03/22/23 Time Patient Seen: 22:51 Date of Onset of Symptoms: 03/11/23 Chief complaint: ABD Pain Narrative: The pjt is a 37 yo who reports having severe watery diarrhea at home for the past 2 weeks, about 5-7 stools per day. She reports having some blood in the stool but mostly just soupy. She denies any fevers, chills, nausea, vomiting, no one that she lives with has similar symptoms. Taylor did have a similar episode for a month last year as well as the year before that. she has never had a colonoscopy to date. Her brother has inflammatory bowel disease of some sort and is on Remicaide. [facility] Medical History PCOS (polycystic ovarian syndrome) Jaundice of recent onset Cholelithiasis Hirsutism Hyperlipidemia PCOS (polycystic ovarian syndrome) PCOS (polycystic ovarian syndrome) 1 para 1 (normal spontaneous vaginal delivery) (2013) Surgical History S/P laparoscopic cholecystectomy Family History Father Hyperlipidemia Social History marital status: number of children: 4 household members: spouse education level: college occupational status: employed Smoking Status: Never smoker alcohol intake: never Meds Home Medications and Allergies Home Medications Medication Instructions Recorded Confirmed Type sertraline 100 mg tablet See Rx Instructions PO DAILY #100 05/09/22 03/22/23 Rx tabs Allergies Allergy/AdvReac Type Severity Reaction Status Date / Time No Known Drug Allergies Allergy Verified 03/22/23 13:09 Exam Vital Signs (past 8 hours): - 03/22/23 16:41 03/22/23 17:00 03/22/23 17:01 Temperature Pulse Rate 99 H 96 H 102 H Respiratory Rate Blood Pressure Pulse Oximetry 100 99 100 Oxygen Delivery Method Oxygen Flow Rate 03/22/23 17:01 03/22/23 17:30 03/22/23 17:30 Temperature Pulse Rate 106 H Respiratory Rate 20 Blood Pressure 164/80 H 171/110 H Pulse Oximetry 99 Oxygen Delivery Method Room Air Oxygen Flow Rate 03/22/23 18:23 03/22/23 18:35 03/22/23 18:41 Temperature Pulse Rate 92 H 92 H 88 Respiratory Rate 24 Blood Pressure Pulse Oximetry 100 98 98 Oxygen Delivery Method Room Air Oxygen Flow Rate 03/22/23 18:41 03/22/23 19:05 03/22/23 19:15 Temperature Pulse Rate 98 H 93 H Respiratory Rate Blood Pressure 168/87 H Pulse Oximetry 96 97 Oxygen Delivery Method Oxygen Flow Rate 03/22/23 19:15 03/22/23 19:30 03/22/23 19:30 Temperature Pulse Rate 93 H Respiratory Rate 16 Blood Pressure 150/78 H 142/77 H Pulse Oximetry 96 Oxygen Delivery Method Room Air Oxygen Flow Rate 03/22/23 20:00 03/22/23 20:30 03/22/23 21:00 Temperature Pulse Rate 95 H 94 H 90 Respiratory Rate 18 18 18 Blood Pressure 145/70 H 145/71 H 147/81 H Pulse Oximetry 96 96 98 Oxygen Delivery Method Room Air Room Air Room Air Oxygen Flow Rate 03/22/23 21:29 03/22/23 22:17 Temperature 98.4 F Pulse Rate 93 H 98 H Respiratory Rate 18 18 Blood Pressure 142/91 H 156/84 H Pulse Oximetry 99 100 Oxygen Delivery Method Room Air Oxygen Flow Rate 0 Oxygen Delivery Method Room Air Oxygen Flow Rate 0 Const General: cooperative and healthy appearing Resp Effort & Inspection: normal respiratory effort and able to speak in complete sentences Auscultation: clear to auscultation bilaterally Cardio Rate: regular rate Rhythm: regular rhythm GI Palpation: soft and no hepatosplenomegaly Percussion: normal to percussion Objective Labs 03/22/23 13:55 03/22/23 13:55 Labs: Laboratory Results - last 24 hr 03/22/23 03/22/23 03/22/23 13:24 13:55 16:11 WBC 14.6 H RBC 4.63 Hgb 11.1 L Hct 34.0 L MCV 73.6 L MCH 24.0 L MCHC 32.6 RDW 15.1 H Plt Count 314 Neut % (Auto) 86.7 H Lymph % (Auto) 6.2 L Garfield % (Auto) 4.8 Eos % (Auto) 1.7 L Baso % (Auto) 0.6 Neut # (Auto) 08985 H Lymph # (Auto) 900 L [place]field # (Auto) 700 Eos # (Auto) 300 Baso # (Auto) 100 Sodium 136 L Potassium 3.1 L Chloride 101 Carbon Dioxide 25 BUN 6 L Creatinine 0.62 Estimated GFR > 60 BUN/Creatinine Ratio 9.7 Glucose 88 Calcium 9.5 Total Bilirubin 0.5 AST 18 ALT 20 Alkaline Phosphatase 102 C-Reactive Protein 14.7 H Total Protein 7.8 Albumin 3.9 Globulin 3.9 Albumin/Globulin Ratio 1.0 Lipase 71 Urine RBC 0-1/hpf Urine WBC 1-5/hpf Ur Squamous Epith Cells 1-5 /hpf Urine Bacteria Occasional (0-1) Ur Culture Indicated? Cult not indicated Stl C. cayetanensis PCR Not detected Stool Rotavirus (PCR) Not detected Stool Adenovirus (PCR) Not detected Stool Astrovirus (PCR) Not detected Stool Cryptosporidium PCR Not detected Stl E.coli Shiga Tox PCR Not detected St Sh/Enteroin Ecoli PCR Not detected Stl Enterotoxigenic E PCR Not detected Stool EPEC (PCR) Not detected Stl E. histolytica PCR Not detected Stool Giardia Lamblia PCR Not detected Stool Sapovirus (PCR) Not detected Stl P. shigelloides PCR Not detected St Y.enterocolitica PCR Not detected Stool Vibrio (PCR) Not detected Stl Vibrio cholerae PCR Not detected Stl Enteroaggr Ecoli PCR Not detected Stl Norovirus GI/GII PCR Not detected Campylobacter (PCR) Not detected C. difficile Tox (PCR) Not detected Salmonella (PCR) Not detected Assessment & Plan Assessment and plan (1) Acute hypokalemia: Status: Acute (2) Colitis: Status: Acute (3) Iron deficiency anemia: Qualifiers: Iron deficiency anemia type: other iron deficiency Qualified Code(s): D50.8 - Other iron deficiency anemias Status: Acute Plan I discussed with the ER provider the pt's case and symptoms and will admit to the hospitalist service. I have reviewed the CT scan showing only marshall colitis with non-specific inflammation. Stool studies also was reviewed by me that showed no infectious cause of the diarrhea that was can detect. The pt's potassium is low and is being replaced in the ER, recheck in am. currently on IVF, will check CPR and -anca, empirically start on steroids, ER provider discussed the pt's case with gen. surgery Dr. Blake who will see the pt in the am on consult. I recommend outpt colonoscopy for definitive diagnosis. Quality VTE Deep Vein Thrombosis/Pulmonary Embolism Present on Admission: No
[2023-03-22] MEDS: methylPREDNISolone 125 MG/2 ML VIAL 80 MG IV (23:10)
[2023-03-23] MEDS: SODIUM CHLORIDE 0.9% 1,000 ML 150 ML IV ×5 (00:11→19:44)
[2023-03-23] MEDS: POTASSIUM CHLORIDE IN WATER 10 MEQ/100 ML PIGGYBACK 100 MEQ IV ×4 (00:16→04:47)
[2023-03-23] MEDS: HYDROMORPHONE 0.5 MG INJ IV ×2 (01:49→11:06)
[2023-03-23 02:00] VITALS: BP 135/80; PULSE 93; RESP 18; TEMP 35.9; O2SAT 95
[2023-03-23] MEDS: ACETAMINOPHEN 325 MG TABLET 650 MG PO (03:01)
--- NOTE | 2023-03-23 04:15 | PC.ADMIT ---
[address] [place] [address] Admission Note: Patient admitted to AC unit from ED at 22:01, spouse present. ambulated to bed via SBA. Alert and oriented x 4, ambulated to bed via SBA. NS @ 150/hr, receiving potassium replacement. Oriented to room and call light, bed is in low and locked position, call light is within reach. The patient,Taylor Cazares,37 y/o, was given written information regarding hospital policies, unit procedures and contact persons. Patient's smoking status: Never smoker. Vital Signs - 8 hr 03/22/23 20:30 03/22/23 21:00 03/22/23 21:14 Temperature Pulse Rate 94 H 90 Respiratory Rate 18 18 Blood Pressure 145/71 H 147/81 H Pulse Oximetry 96 98 Oxygen Delivery Method Room Air Room Air Room Air Oxygen Flow Rate 03/22/23 21:29 03/22/23 22:17 Temperature 98.4 F Pulse Rate 93 H 98 H Respiratory Rate 18 18 Blood Pressure 142/91 H 156/84 H Pulse Oximetry 99 100 Oxygen Delivery Method Room Air Oxygen Flow Rate 0
[2023-03-23] MEDS: HYDROCODONE/ACET 5/325 TABLET 1 TAB PO ×2 (04:51→09:42)
[2023-03-23 05:13] LABS: Add Manual Diff / Slide Review NO; Basophils Absolute Auto 0 /uL (0-100); Basophils Percent Auto 0.1 % (0-2); Eosinophils Absolute Auto 0 /uL (0-450); Hematocrit 34.3 % (36-46); Lymphocytes Absolute Auto 400 /uL (1100-4500); Lymphocytes Percent Auto 2.2 % (25-40); Mean Corpuscular HGB Conc 32.1 % (30-36); Mean Corpuscular Hemoglobin 23.8 PG (26-34); Mean Corpuscular Volume 74.2 fL (80-100); Monocytes Absolute Auto 200 /uL (0-900); Monocytes Percent Auto 0.9 % (3-14); Neutrophils Absolute Auto 19200 /uL (1500-7000); Neutrophils Percent Auto 96.8 % (50-75); Platelet Count 287 X10^3/uL (150-400); Red Blood Cell Count 4.62 X10^6/uL (4.0-5.2); Red Cell Distribution Width 14.8 % (11.6-14.8); White Blood Cell Count 19.9 X10^3/uL (4.5-11.0)
[2023-03-23 05:26] LABS: BUN Creatinine Ratio 8.9 (6-22); Blood Urea Nitrogen 5 mg/dL (7-17); Calcium 8.7 mg/dL (8.4-10.2); Carbon Dioxide 18 mmol/L (22-32); Chloride 106 mmol/L (98-107); Estimated Glomerular Filt Rate > 60 mL/min (>60); Glucose 101 mg/dL (70-100); HEMOLYSIS < 15 (0-50); Potassium 4.5 mmol/L (3.4-5.1); Sodium 134 mmol/L (137-145)
[2023-03-23] MEDS: PANTOPRAZOLE DR 20 MG TABLET PO (06:08)
[2023-03-23] MEDS: methylPREDNISolone 125 MG/2 ML VIAL 80 MG IV (06:08)
[2023-03-23 10:00] VITALS: BP 154/86; PULSE 78; RESP 16; TEMP 36.6; O2SAT 97
[2023-03-23] MEDS: OXYCODONE IR 5 MG TABLET PO (11:46)
[2023-03-23] MEDS: methylPREDNISolone 125 MG/2 ML VIAL IV ×3 (11:46→23:57)
--- NOTE | 2023-03-23 13:42 | PM.CN ---
History of Present Illness Consult details Date Patient Seen: 03/23/23 Time Patient Seen: 17:18 Chief complaint: ABD Pain Narrative: 37-year-old woman who was admitted to the [facility] for acute abdominal pain. Reports 2 weeks of bloody diarrhea with low-grade fever. She has had 2 previous similar episodes occurring over the past 2 years. She does not carry a diagnosis of inflammatory bowel disease but her younger brother has a diagnosis of ulcerative colitis. She has never had a previous colonoscopy. At admission WBC [address] abdomen pelvis personally reviewed demonstrates colitis of the transverse and ascending colon. Meds Home Medications and Allergies Home Medications Medication Instructions Recorded Confirmed Type sertraline 100 mg tablet See Rx Instructions PO DAILY #100 05/09/22 03/22/23 Rx tabs Allergies Allergy/AdvReac Type Severity Reaction Status Date / Time No Known Drug Allergies Allergy Verified 03/22/23 13:09 Exam Vital Signs (past 8 hours): - 03/23/23 10:00 Temperature 97.9 F Pulse Rate 78 Respiratory Rate 16 Blood Pressure 154/86 H Pulse Oximetry 97 Oxygen Flow Rate 0 Oxygen Delivery Method Room Air Oxygen Flow Rate 0 Narrative Exam Narrative: GENERAL: A well nourished, well developed adult, in significant discomfort HEENT: Normocephalic, atraumatic. No scleral icterus CHEST: Rising symmetrically. No audible wheezes CARDIOVASCULAR: Warm and well perfused. Regular rate ABDOMEN: Diffusely tender no peritonitis EXTREMITIES: Normal tone and without edema. NEUROLOGIC: Moving all extremities spontaneously. No gross motor deficits. Objective Labs 03/23/23 04:44 03/23/23 04:44 Labs: Laboratory Results - last 24 hr 03/22/23 03/22/23 03/22/23 13:24 13:55 16:11 WBC 14.6 H RBC 4.63 Hgb 11.1 L Hct 34.0 L MCV 73.6 L MCH 24.0 L MCHC 32.6 RDW 15.1 H Plt Count 314 Neut % (Auto) 86.7 H Lymph % (Auto) 6.2 L [place] % (Auto) 4.8 Eos % (Auto) 1.7 L Baso % (Auto) 0.6 Neut # (Auto) 45076 H Lymph # (Auto) 900 L [place] # (Auto) 700 Eos # (Auto) 300 Baso # (Auto) 100 Sodium 136 L Potassium 3.1 L Chloride 101 Carbon Dioxide 25 BUN 6 L Creatinine 0.62 Estimated GFR > 60 BUN/Creatinine Ratio 9.7 Glucose 88 Calcium 9.5 Total Bilirubin 0.5 AST 18 ALT 20 Alkaline Phosphatase 102 C-Reactive Protein 14.7 H Total Protein 7.8 Albumin 3.9 Globulin 3.9 Albumin/Globulin Ratio 1.0 Lipase 71 Urine RBC 0-1/hpf Urine WBC 1-5/hpf Ur Squamous Epith Cells 1-5 /hpf Urine Bacteria Occasional (0-1) Ur Culture Indicated? Cult not indicated Stl C. cayetanensis PCR Not detected Stool Rotavirus (PCR) Not detected Stool Adenovirus (PCR) Not detected Stool Astrovirus (PCR) Not detected Stool Cryptosporidium PCR Not detected Stl E.coli Shiga Tox PCR Not detected St Sh/Enteroin Ecoli PCR Not detected Stl Enterotoxigenic E PCR Not detected Stool EPEC (PCR) Not detected Stl E. histolytica PCR Not detected Stool Giardia Lamblia PCR Not detected Stool Sapovirus (PCR) Not detected Stl P. shigelloides PCR Not detected St Y.enterocolitica PCR Not detected Stool Vibrio (PCR) Not detected Stl Vibrio cholerae PCR Not detected Stl Enteroaggr Ecoli PCR Not detected Stl Norovirus GI/GII PCR Not detected Campylobacter (PCR) Not detected C. difficile Tox (PCR) Not detected Salmonella (PCR) Not detected 03/23/23 04:44 WBC 19.9 H RBC 4.62 Hgb 11.0 L Hct 34.3 L MCV 74.2 L MCH 23.8 L MCHC 32.1 RDW 14.8 Plt Count 287 Neut % (Auto) 96.8 H Lymph % (Auto) 2.2 L [place] % (Auto) 0.9 L Eos % (Auto) 0.0 L Baso % (Auto) 0.1 Neut # (Auto) 65307 H Lymph # (Auto) 400 L [place] # (Auto) 200 Eos # (Auto) 0 Baso # (Auto) 0 Sodium 134 L Potassium 4.5 D Chloride 106 Carbon Dioxide 18 L BUN 5 L Creatinine 0.56 Estimated GFR > 60 BUN/Creatinine Ratio 8.9 Glucose 101 H Calcium 8.7 Total Bilirubin AST ALT Alkaline Phosphatase C-Reactive Protein Total Protein Albumin Globulin Albumin/Globulin Ratio Lipase Urine RBC Urine WBC Ur Squamous Epith Cells Urine Bacteria Ur Culture Indicated? Stl C. cayetanensis PCR Stool Rotavirus (PCR) Stool Adenovirus (PCR) Stool Astrovirus (PCR) Stool Cryptosporidium PCR Stl E.coli Shiga Tox PCR St Sh/Enteroin Ecoli PCR Stl Enterotoxigenic E PCR Stool EPEC (PCR) Stl E. histolytica PCR Stool Giardia Lamblia PCR Stool Sapovirus (PCR) Stl P. shigelloides PCR St Y.enterocolitica PCR Stool Vibrio (PCR) Stl Vibrio cholerae PCR Stl Enteroaggr Ecoli PCR Stl Norovirus GI/GII PCR Campylobacter (PCR) C. difficile Tox (PCR) Salmonella (PCR) [facility] Medical History PCOS (polycystic ovarian syndrome) Jaundice of recent onset Cholelithiasis Hirsutism Hyperlipidemia PCOS (polycystic ovarian syndrome) PCOS (polycystic ovarian syndrome) 1 para 1 (normal spontaneous vaginal delivery) (2013) Surgical History S/P laparoscopic cholecystectomy Family History Father Hyperlipidemia Social History marital status: number of children: 4 household members: spouse education level: college occupational status: employed Tobacco & Substance Use Smoking Status: Never smoker alcohol intake: never Assessment & Plan Assessment and plan (1) Colitis: Status: Acute Assessment & Plan narrative: 37-year-old woman admitted with colitis likely secondary to undiagnosed inflammatory bowel disease. Non peritoneal on exam CT abdomen pelvis demonstrates colitis of the ascending and transverse colon without free air. In agreement for IV steroids for presumed inflammatory bowel disease. Outpatient she will require colonoscopy preferably with gastroenterology to establish a diagnosis and begin IBD therapy. No surgical intervention warranted at this time. I discussed with her that I would not recommend performance of the colonoscopy at this point given her colitis.
[2023-03-23 14:00] VITALS: BP 152/84; PULSE 89; RESP 16; TEMP 36.5; O2SAT 97
[2023-03-23] MEDS: MESALAMINE 400 MG CAP.DRTAB. 1200 MG PO ×2 (14:52→20:28)
--- NOTE | 2023-03-23 15:01 | CM.DANOTE ---
DCP Assessment Note Pt is a 37yo F here with diarrhea and colitis. PCP Was Leah Martinez but she has since left, her PCP is someone else in the clinic but has not had a chance to see her yet. Payer [employer] and self pay EXTERMINATION INSPECTOR reviewed EMR. Pt has been having loose stools for about two weeks. dc timeline unclear at this time. Per RN, pt nauseated. EXTERMINATION INSPECTOR entered room and introduced self and role. Pt resting in bed. Pt reports living in [place] with spouse and 4 kids, aged 8-18yrs old. Pt is indep/drives at baseline. Pt reports no CM needs at this time. Plan: home with spouse when medically stable. No CM needs at this time. CM team will continue to follow as needed. CRISTIAN [place] Discharge Planning/Care Management CM Discharge Assessment Start: 03/23/23 15:00 Freq: Status: Active Protocol: Document 03/23/23 15:00 (Rec: 03/23/23 15:01 [id number]) Discharge Planning Assessment Assigned Pickle Processor CRISTIAN Salazar DPOA/Assigned Designee Name Keon Cazares (spouse) Contact Information [phone] Advance Directives? No History Provided By Patient,Medical Record Prior Living Arrangements House Household Members spouse,children Type of transporation used prior to Drives own vehicle admit Independent with ADL's Yes Is patient alert and oriented? Yes Barriers to Discharge No Discharge Plan Home Transportation Arrangement family in POV Referrals Initiated None needed Whiteboard Updated in Patient Room with Yes name and ext. # of Pickle Processor Review Status In Process Next Review Type Continued Stay Review
[2023-03-23] MEDS: OXYCODONE IR 10 MG TABLET PO ×2 (15:42→19:44)
[2023-03-23] MEDS: ACETAMINOPHEN 325 MG TABLET 975 MG PO ×2 (15:42→20:27)
--- NOTE | 2023-03-23 17:33 | P.PN_ITS ---
Subjective Subjective Interval history: Patient having ongoing intense abd pain across entire belly. No further diarrhea. Gen surg consulted who agreed with IV steroids for IBD. Patient notes her brother has UC and is on remicade infusions. Exam Vital Signs (past 8 hours): - 03/23/23 10:00 03/23/23 14:00 Temperature 97.9 F 97.7 F Pulse Rate 78 89 Respiratory Rate 16 16 Blood Pressure 154/86 H 152/84 H Pulse Oximetry 97 97 Oxygen Flow Rate 0 0 Oxygen Delivery Method Room Air Oxygen Flow Rate 0 Const General: in distress and ill appearing Resp Effort & Inspection: normal respiratory effort and able to speak in complete sentences Auscultation: clear to auscultation bilaterally Cardio Rate: regular rate Rhythm: regular rhythm GI Palpation: tender (diffusely with palpation) Objective Labs 03/23/23 04:44 03/23/23 04:44 Labs: Laboratory Results - last 24 hr 03/22/23 03/23/23 13:55 04:44 WBC 19.9 H RBC 4.62 Hgb 11.0 L Hct 34.3 L MCV 74.2 L MCH 23.8 L MCHC 32.1 RDW 14.8 Plt Count 287 Neut % (Auto) 96.8 H Lymph % (Auto) 2.2 L [place] % (Auto) 0.9 L Eos % (Auto) 0.0 L Baso % (Auto) 0.1 Neut # (Auto) 12795 H Lymph # (Auto) 400 L [place] # (Auto) 200 Eos # (Auto) 0 Baso # (Auto) 0 Sodium 134 L Potassium 4.5 D Chloride 106 Carbon Dioxide 18 L BUN 5 L Creatinine 0.56 Estimated GFR > 60 BUN/Creatinine Ratio 8.9 Glucose 101 H Calcium 8.7 C-Reactive Protein 14.7 H PFSH Medical History PCOS (polycystic ovarian syndrome) Jaundice of recent onset Cholelithiasis Hirsutism Hyperlipidemia PCOS (polycystic ovarian syndrome) PCOS (polycystic ovarian syndrome) 1 para 1 (normal spontaneous vaginal delivery) (2013) Surgical History S/P laparoscopic cholecystectomy Family History Father Hyperlipidemia Social History marital status: number of children: 4 household members: spouse education level: college occupational status: employed Smoking Status: Never smoker alcohol intake: never Assessment & Plan Assessment & Plan narrative: # likely new-onset inflammatory bowel disease -presents with 2 weeks of bloody diarrhea and abd pain -stool PCR negative -CT abd with pancolitis of ascending, transverse and descending colon, likely UC with distribution -patient's brother has UC and is on remicade -IV solu-medrol 125mg q6h -mesalamine 1.2g BID -Dr. Callejas gen surg consulted and ruled out appendicitis, thinks IBD likely and rec outpatient GI f/up for colonoscopy -fecal calprotectin pending -pain control as abd pain is severe -clear liquid diet # depression -continue zoloft Dispo: Pending improvement in abd pain with IV steroids. 1-2 days. She is obs. Quality VTE Deep Vein Thrombosis/Pulmonary Embolism Present on Admission: No
[2023-03-23 18:00] VITALS: BP 151/77; PULSE 80; RESP 16; TEMP 36.9; O2SAT 96
[2023-03-23 20:19] VITALS: BP 177/88; PULSE 84; RESP 18; TEMP 36.2; O2SAT 100
[2023-03-24] VITALS (9 sets, daily range): BP systolic 146–177; BP diastolic 76–94; PULSE 71–94; RESP 17–23; TEMP 35.9–37.1; O2SAT 94–99
[2023-03-24] MEDS: OXYCODONE IR 10 MG TABLET PO ×5 (00:05→18:30)
[2023-03-24] MEDS: ONDANSETRON 4 MG/2 ML INJ IV (00:28)
[2023-03-24 04:45] LABS: Add Manual Diff / Slide Review NO; Basophils Absolute Auto 100 /uL (0-100); Basophils Percent Auto 0.2 % (0-2); Eosinophils Absolute Auto 0 /uL (0-450); Hematocrit 33.1 % (36-46); Hemoglobin 10.7 g/dL (12.0-16.0); Lymphocytes Absolute Auto 500 /uL (1100-4500); Lymphocytes Percent Auto 1.7 % (25-40); Mean Corpuscular HGB Conc 32.2 % (30-36); Mean Corpuscular Hemoglobin 23.6 PG (26-34); Mean Corpuscular Volume 73.2 fL (80-100); Monocytes Absolute Auto 400 /uL (0-900); Monocytes Percent Auto 1.4 % (3-14); Neutrophils Absolute Auto 26400 /uL (1500-7000); Neutrophils Percent Auto 96.7 % (50-75); Platelet Count 324 X10^3/uL (150-400); Red Blood Cell Count 4.53 X10^6/uL (4.0-5.2); Red Cell Distribution Width 15.3 % (11.6-14.8); White Blood Cell Count 27.3 X10^3/uL (4.5-11.0)
[2023-03-24 04:49] LABS: BUN Creatinine Ratio 9.4 (6-22); Blood Urea Nitrogen 5 mg/dL (7-17); Calcium 9.1 mg/dL (8.4-10.2); Carbon Dioxide 18 mmol/L (22-32); Chloride 105 mmol/L (98-107); Estimated Glomerular Filt Rate > 60 mL/min (>60); Glucose 145 mg/dL (70-100); HEMOLYSIS < 15 (0-50); Potassium 4.1 mmol/L (3.4-5.1); Sodium 135 mmol/L (137-145)
[2023-03-24] MEDS: methylPREDNISolone 125 MG/2 ML VIAL IV ×4 (05:21→23:40)
[2023-03-24] MEDS: PANTOPRAZOLE DR 20 MG TABLET PO (05:22)
[2023-03-24] MEDS: OXYCODONE IR 5 MG TABLET PO ×4 (07:48→18:07)
[2023-03-24] MEDS: HYDROMORPHONE 1 MG INJ IV ×5 (08:50→22:35)
--- NOTE | 2023-03-24 10:08 | CM.DPNOTE ---
Addendum entered by CRISTIAN [place] 03/24/23 11:18: After UR review, pt was changed to INPT as of 03.24.23 Original Note: DCP Note PLASTIC PROCESS TECHNICIAN reviewed EMR. Per provider in rounds, likely here another few days due to likely new onset inflammatory bowel disease. Pt remains OBS at this time. Plan: home with spouse support when medically stable. No anticipated CM needs. CM team will continue to follow as needed. CRISTIAN [place]
[2023-03-24] MEDS: MESALAMINE 400 MG CAP.DRTAB. 1200 MG PO ×2 (10:38→21:05)
[2023-03-24] MEDS: ACETAMINOPHEN 325 MG TABLET 975 MG PO ×3 (10:39→21:05)
[2023-03-24] MEDS: SERTRALINE 50 MG TABLET 100 MG PO (10:41)
[2023-03-24] MEDS: lisinopriL 5 MG TABLET PO (10:44)
--- NOTE | 2023-03-24 10:51 | PM.PN.1 ---
Subjective Subjective Interval history: She is still having a lot of abdominal pain, the pain medication wears off early. She is taking oxycodone every 3 hours. She is also having some anxiety. Her brother has ulcerative colitis, no other family members have bowel disease. She denies any nausea or vomiting. Exam Vital Signs (past 8 hours): - 03/24/23 03:19 03/24/23 05:00 03/24/23 08:11 Temperature 98.7 F 98.4 F Pulse Rate 82 74 94 H Respiratory Rate 18 23 Blood Pressure 157/76 H 161/81 H 161/84 H Pulse Oximetry 98 99 Oxygen Flow Rate 0 0 03/24/23 10:44 Temperature Pulse Rate 77 Respiratory Rate Blood Pressure 160/81 H Pulse Oximetry Oxygen Flow Rate Oxygen Delivery Method Room Air Oxygen Flow Rate 0 Narrative Exam Narrative: NAD, anxious. Lungs are clear, normal effort. Heart is regular, no murmur. Abdomen is slightly distended, minimally tender. No guarding or rebound. Extremities are free of edema. No skin rash or lesions. Objective Labs 03/24/23 04:29 03/24/23 04:29 Labs: Laboratory Results - last 24 hr 03/24/23 04:29 WBC 27.3 H RBC 4.53 Hgb 10.7 L Hct 33.1 L MCV 73.2 L MCH 23.6 L MCHC 32.2 RDW 15.3 H Plt Count 324 Neut % (Auto) 96.7 H Lymph % (Auto) 1.7 L [place] % (Auto) 1.4 L Eos % (Auto) 0.0 L Baso % (Auto) 0.2 Neut # (Auto) 99948 H Lymph # (Auto) 500 L [place] # (Auto) 400 Eos # (Auto) 0 Baso # (Auto) 100 Sodium 135 L Potassium 4.1 Chloride 105 Carbon Dioxide 18 L BUN 5 L Creatinine 0.53 Estimated GFR > 60 BUN/Creatinine Ratio 9.4 Glucose 145 H Calcium 9.1 PFSH Medical History PCOS (polycystic ovarian syndrome) Jaundice of recent onset Cholelithiasis Hirsutism Hyperlipidemia PCOS (polycystic ovarian syndrome) PCOS (polycystic ovarian syndrome) 1 para 1 (normal spontaneous vaginal delivery) (2013) Surgical History S/P laparoscopic cholecystectomy Family History Father Hyperlipidemia Social History marital status: number of children: 4 household members: spouse education level: college occupational status: employed Smoking Status: Never smoker alcohol intake: never Assessment & Plan Assessment & Plan narrative: # New-onset inflammatory bowel disease, POA and active. -presents with 2 weeks of bloody diarrhea and abd pain -stool PCR negative, CDT negative. -CT abd with pancolitis of ascending, transverse and descending colon, likely UC with distribution -patient's brother has Ulcerative Colitis and is on Remicade. -IV solu-medrol 125mg q6h -mesalamine 1.2g BID -Dr. Callejas general surgery consulted and ruled out appendicitis, thinks IBD likely and rec outpatient GI f/up for colonoscopy -fecal calprotectin pending -pain control as abd pain is severe (Oxy Q 3) -clear liquid diet -Add Ativan for anxiety. # Depression, POA -continue zoloft Dispo: Pending improvement in abdomen pain with IV steroids. 1-2 days. She is observation status. JESUS 1-2 days. Quality VTE Deep Vein Thrombosis/Pulmonary Embolism Present on Admission: No
[2023-03-24] MEDS: HYDROMORPHONE 0.5 MG INJ IV ×2 (10:54→14:49)
[2023-03-24] MEDS: LORazepam 2 MG/ML INJ 1 MG IV ×2 (11:34→17:29)
[2023-03-25] VITALS (9 sets, daily range): BP systolic 123–152; BP diastolic 74–87; PULSE 73–86; RESP 17–19; TEMP 35.9–36.8; O2SAT 92–98
[2023-03-25] MEDS: HYDROMORPHONE 0.5 MG INJ IV (04:10)
[2023-03-25] MEDS: ONDANSETRON 4 MG/2 ML INJ IV (04:35)
[2023-03-25] MEDS: PANTOPRAZOLE DR 20 MG TABLET PO (05:58)
[2023-03-25] MEDS: methylPREDNISolone 125 MG/2 ML VIAL IV ×4 (05:58→23:04)
[2023-03-25 07:08] LABS: Add Manual Diff / Slide Review NO; Basophils Absolute Auto 0 /uL (0-100); Basophils Percent Auto 0.2 % (0-2); Eosinophils Absolute Auto 0 /uL (0-450); Hematocrit 33.6 % (36-46); Hemoglobin 10.9 g/dL (12.0-16.0); Lymphocytes Absolute Auto 400 /uL (1100-4500); Lymphocytes Percent Auto 2.4 % (25-40); Mean Corpuscular HGB Conc 32.5 % (30-36); Mean Corpuscular Hemoglobin 23.8 PG (26-34); Mean Corpuscular Volume 73.3 fL (80-100); Monocytes Absolute Auto 900 /uL (0-900); Monocytes Percent Auto 5.3 % (3-14); Neutrophils Absolute Auto 16200 /uL (1500-7000); Neutrophils Percent Auto 92.1 % (50-75); Platelet Count 313 X10^3/uL (150-400); Red Blood Cell Count 4.59 X10^6/uL (4.0-5.2); Red Cell Distribution Width 15.1 % (11.6-14.8); White Blood Cell Count 17.7 X10^3/uL (4.5-11.0)
[2023-03-25 07:16] LABS: BUN Creatinine Ratio 17.3 (6-22); Blood Urea Nitrogen 9 mg/dL (7-17); Calcium 9.1 mg/dL (8.4-10.2); Carbon Dioxide 27 mmol/L (22-32); Chloride 100 mmol/L (98-107); Estimated Glomerular Filt Rate > 60 mL/min (>60); Glucose 146 mg/dL (70-100); HEMOLYSIS < 15 (0-50); Potassium 3.4 mmol/L (3.4-5.1); Sodium 135 mmol/L (137-145)
[2023-03-25] MEDS: ACETAMINOPHEN 325 MG TABLET 975 MG PO ×3 (08:34→21:10)
[2023-03-25] MEDS: lisinopriL 5 MG TABLET PO (08:35)
[2023-03-25] MEDS: SERTRALINE 50 MG TABLET 100 MG PO (08:35)
[2023-03-25] MEDS: MESALAMINE 400 MG CAP.DRTAB. 1200 MG PO ×2 (08:35→21:09)
[2023-03-25] MEDS: OXYCODONE IR 5 MG TABLET PO ×2 (08:35→18:58)
--- NOTE | 2023-03-25 08:37 | P.PN_ITS ---
Subjective Subjective Interval history: She is still uncomfortable, pain is more prominent on the left side of her abdomen. She has some nausea but no vomiting. She was up to the bathroom yesterday but did not sit in the chair. She is having intermittent loose stools, free of blood or mucus. Her WBC is down today. Exam Vital Signs (past 8 hours): - 03/25/23 01:17 03/25/23 06:00 03/25/23 08:29 Temperature 97.4 F L 97.6 F 97.5 F L Pulse Rate 86 80 74 Respiratory Rate 18 18 18 Blood Pressure 135/78 147/82 H 152/87 H Pulse Oximetry 92 98 95 Oxygen Flow Rate 0 0 03/25/23 08:35 Temperature Pulse Rate 74 Respiratory Rate Blood Pressure 152/87 H Pulse Oximetry Oxygen Flow Rate Oxygen Delivery Method Room Air Oxygen Flow Rate 0 Narrative Exam Narrative: NAD, flat affect, no distress. Lungs are clear, normal rate and effort. Heart is regular, no murmur. Abdomen is soft, some tenderness in the left lateral aspect. No guarding or rebound. Legs are free of edema. Objective Labs 03/25/23 06:55 03/25/23 06:55 Labs: Laboratory Results - last 24 hr 03/25/23 06:55 WBC 17.7 H RBC 4.59 Hgb 10.9 L Hct 33.6 L MCV 73.3 L MCH 23.8 L MCHC 32.5 RDW 15.1 H Plt Count 313 Neut % (Auto) 92.1 H Lymph % (Auto) 2.4 L [place] % (Auto) 5.3 Eos % (Auto) 0.0 L Baso % (Auto) 0.2 Neut # (Auto) 97631 H Lymph # (Auto) 400 L [place] # (Auto) 900 Eos # (Auto) 0 Baso # (Auto) 0 Sodium 135 L Potassium 3.4 Chloride 100 Carbon Dioxide 27 BUN 9 Creatinine 0.52 Estimated GFR > 60 BUN/Creatinine Ratio 17.3 Glucose 146 H Calcium 9.1 PFSH Medical History PCOS (polycystic ovarian syndrome) Jaundice of recent onset Cholelithiasis Hirsutism Hyperlipidemia PCOS (polycystic ovarian syndrome) PCOS (polycystic ovarian syndrome) 1 para 1 (normal spontaneous vaginal delivery) (2013) Surgical History S/P laparoscopic cholecystectomy Family History Father Hyperlipidemia Social History marital status: number of children: 4 household members: spouse education level: college occupational status: employed Smoking Status: Never smoker alcohol intake: never Assessment & Plan Assessment & Plan narrative: 1. New-onset inflammatory bowel disease, POA and active. This appears to be slowly improving. -presents with 2 weeks of bloody diarrhea and abd pain -stool PCR negative, CDT negative. -CT abd with pancolitis of ascending, transverse and descending colon, likely UC with distribution -patient's brother has Ulcerative Colitis and is on Remicade. -IV solu-medrol 125mg q6h -mesalamine 1.2g BID -Dr. Callejas general surgery consulted and ruled out appendicitis, thinks IBD likely and rec outpatient GI f/up for colonoscopy -fecal calprotectin pending -pain control as abdomen pain is severe (Oxy Q 3) -clear liquid diet, no changes today. -Added Ativan 03/24 for anxiety. -out of bed. 2. Depression, POA -continue zoloft Dispo: Pending improvement in abdomen pain with IV steroids. 1-2 days. She is observation status. JESUS 1-2 days. Quality VTE Deep Vein Thrombosis/Pulmonary Embolism Present on Admission: No
--- NOTE | 2023-03-25 10:27 | CM.DPNOTE ---
DCP Note STATIONARY ENGINEER SUPERVISOR reviewed EMR. Per provider, likely another two days. Plan: home with spouse support when medically stable. No anticipated CM needs. CM team will continue to follow as needed. CRISTIAN [place]
[2023-03-25] MEDS: POTASSIUM CHLORIDE 20 MEQ/15 ML UDC 40 MEQ PO (12:28)
[2023-03-25] MEDS: LORazepam 2 MG/ML INJ 1 MG IV (12:45)
[2023-03-25] MEDS: HYDROMORPHONE 1 MG INJ IV (21:10)
[2023-03-26 04:00] VITALS: BP 179/97; PULSE 67; RESP 18; TEMP 35.9; O2SAT 97
[2023-03-26] MEDS: HYDROMORPHONE 0.5 MG INJ IV (04:31)
[2023-03-26] MEDS: PANTOPRAZOLE DR 20 MG TABLET PO (05:16)
[2023-03-26] MEDS: methylPREDNISolone 125 MG/2 ML VIAL IV ×4 (05:16→23:48)
[2023-03-26 05:28] LABS: Add Manual Diff / Slide Review NO; Basophils Absolute Auto 0 /uL (0-100); Basophils Percent Auto 0.2 % (0-2); Eosinophils Absolute Auto 0 /uL (0-450); Hematocrit 34.8 % (36-46); Hemoglobin 11.2 g/dL (12.0-16.0); Lymphocytes Absolute Auto 700 /uL (1100-4500); Lymphocytes Percent Auto 4.3 % (25-40); Mean Corpuscular HGB Conc 32.2 % (30-36); Mean Corpuscular Hemoglobin 23.5 PG (26-34); Mean Corpuscular Volume 72.9 fL (80-100); Monocytes Absolute Auto 600 /uL (0-900); Monocytes Percent Auto 3.6 % (3-14); Neutrophils Absolute Auto 14500 /uL (1500-7000); Neutrophils Percent Auto 91.9 % (50-75); Platelet Count 350 X10^3/uL (150-400); Red Blood Cell Count 4.78 X10^6/uL (4.0-5.2); Red Cell Distribution Width 15.3 % (11.6-14.8); White Blood Cell Count 15.8 X10^3/uL (4.5-11.0)
[2023-03-26 05:38] LABS: Blood Urea Nitrogen 13 mg/dL (7-17); Carbon Dioxide 29 mmol/L (22-32); Chloride 98 mmol/L (98-107); Estimated Glomerular Filt Rate > 60 mL/min (>60); Glucose 130 mg/dL (70-100); HEMOLYSIS 25 (0-50); Sodium 135 mmol/L (137-145)
[2023-03-26 08:00] VITALS: RESP 20; TEMP 35.9; O2SAT 99
[2023-03-26] MEDS: ACETAMINOPHEN 325 MG TABLET 975 MG PO ×2 (09:06→20:27)
[2023-03-26 09:07] VITALS: BP 143/87; PULSE 79
[2023-03-26] MEDS: lisinopriL 5 MG TABLET PO (09:07)
[2023-03-26] MEDS: SERTRALINE 50 MG TABLET 100 MG PO (09:07)
[2023-03-26] MEDS: OXYCODONE IR 5 MG TABLET PO ×3 (09:07→23:48)
--- NOTE | 2023-03-26 10:30 | CM.DPNOTE ---
DCP Note LACTATION COORDINATOR reviewed EMR. Per provider, trying to titrate her down from current steroids to switch her to different steroids. Likely another few days. Plan: home with spouse support when medically stable. No anticipated CM needs. CM team will continue to follow as needed. CRISTIAN [place]
[2023-03-26] MEDS: MESALAMINE 400 MG CAP.DRTAB. 800 MG PO (10:48)
[2023-03-26] MEDS: MESALAMINE 400 MG CAP.DRTAB. PO (11:41)
--- NOTE | 2023-03-26 13:03 | PM.PN.1 ---
Subjective Subjective Interval history: She is still uncomfortable, continues to have LLQ pain unchanged really. had 3-4 bloody BMs overnight, h/h stable. Exam Vital Signs (past 8 hours): - 03/26/23 08:00 03/26/23 09:07 Temperature 96.6 F L Pulse Rate 79 Respiratory Rate 20 Blood Pressure 143/87 H Pulse Oximetry 99 Oxygen Flow Rate 0 Oxygen Delivery Method Room Air Oxygen Flow Rate 0 Narrative Exam Narrative: NAD, flat affect, no distress. Lungs are clear, normal rate and effort. Heart is regular, no murmur. Abdomen is soft, some tenderness in the left lateral aspect. No guarding or rebound. Legs are free of edema. Objective Labs 03/26/23 04:41 03/26/23 04:41 Labs: Laboratory Results - last 24 hr 03/26/23 04:41 WBC 15.8 H RBC 4.78 Hgb 11.2 L Hct 34.8 L MCV 72.9 L MCH 23.5 L MCHC 32.2 RDW 15.3 H Plt Count 350 Neut % (Auto) 91.9 H Lymph % (Auto) 4.3 L [place] % (Auto) 3.6 Eos % (Auto) 0.0 L Baso % (Auto) 0.2 Neut # (Auto) 85853 H Lymph # (Auto) 700 L [place] # (Auto) 600 Eos # (Auto) 0 Baso # (Auto) 0 Sodium 135 L Potassium 4.0 Chloride 98 Carbon Dioxide 29 BUN 13 Creatinine 0.50 L Estimated GFR > 60 BUN/Creatinine Ratio 26.0 H Glucose 130 H Calcium 9.0 PFSH Medical History PCOS (polycystic ovarian syndrome) Jaundice of recent onset Cholelithiasis Hirsutism Hyperlipidemia PCOS (polycystic ovarian syndrome) PCOS (polycystic ovarian syndrome) 1 para 1 (normal spontaneous vaginal delivery) (2013) Surgical History S/P laparoscopic cholecystectomy Family History Father Hyperlipidemia Social History marital status: number of children: 4 household members: spouse education level: college occupational status: employed Smoking Status: Never smoker alcohol intake: never Assessment & Plan Assessment & Plan narrative: 1. New-onset inflammatory bowel disease, POA and active. This appears to be slowly improving. -presents with 2 weeks of bloody diarrhea and abd pain -stool PCR negative, CDT negative. -CT abd with pancolitis of ascending, transverse and descending colon, likely UC with distribution -patient's brother has Ulcerative Colitis and is on Remicade. -IV solu-medrol 125mg q6h -mesalamine 1.2g BID -Dr. Callejas general surgery consulted and ruled out appendicitis, thinks IBD likely and rec outpatient GI f/up for colonoscopy -fecal calprotectin pending -pain control as abdomen pain is severe (Oxy Q 3) -can advance diet as tolerated -Added Ativan 03/24 for anxiety. -today is day 3 of intensive steroid therapy, if no improvement in pain or bloody bowel movements in 1-2 days, consider transfer for steroid sparing therapy and GI consultation. 2. Depression, POA -continue zoloft Dispo: Pending improvement in abdomen pain with IV steroids. Inpatient. 1-2 days, either discharge home or may need transfer. Quality VTE Deep Vein Thrombosis/Pulmonary Embolism Present on Admission: No
[2023-03-26 16:00] VITALS: BP 165/89; PULSE 72; RESP 18; TEMP 35.9; O2SAT 98
[2023-03-26] MEDS: MESALAMINE 400 MG CAP.DRTAB. 1200 MG PO (20:28)
[2023-03-26 20:55] VITALS: BP 161/92; PULSE 71; RESP 18; TEMP 37.2; O2SAT 98
[2023-03-26 23:48] VITALS: BP 154/85; PULSE 97; RESP 16; TEMP 36.8; O2SAT 95
[2023-03-27] VITALS (8 sets, daily range): BP systolic 141–210; BP diastolic 80–111; PULSE 66–94; RESP 16–25; TEMP 36.6–37.2; O2SAT 94–97
[2023-03-27] MEDS: HYDROMORPHONE 0.5 MG INJ IV ×5 (00:55→21:17)
[2023-03-27] MEDS: HYDRALAZINE 20 MG/ML VIAL 10 MG IV (03:12)
[2023-03-27 03:56] LABS: Hematocrit 35.8 % (36-46); Hemoglobin 11.5 g/dL (12.0-16.0); Mean Corpuscular HGB Conc 32.1 % (30-36); Mean Corpuscular Hemoglobin 23.2 PG (26-34); Mean Corpuscular Volume 72.2 fL (80-100); Platelet Count 358 X10^3/uL (150-400); Red Blood Cell Count 4.95 X10^6/uL (4.0-5.2); Red Cell Distribution Width 15.3 % (11.6-14.8); White Blood Cell Count 17.6 X10^3/uL (4.5-11.0)
[2023-03-27 04:04] LABS: Add Manual Diff / Slide Review YES
--- NOTE | 2023-03-27 04:04 | PC.NURSE ---
0310: Patient is having 5/10 chest pressure. BP 210/111 HR 90s. 10mg IV hydralazine administered. Patient crying, shaking and complaining of abdominal pain. EKG sent to dr, showing sinus tachycardia at 110 bpm. Total of 1mg dilaudid given. New order for troponin and lactic acid and AM labs drawn per dr. grande. 0415: Patient is lethargic with flat affect, states abd pain 3/10 BP 149/80 HR 88. This Rn decreased stimuli, patient laying down with call scales in reach.
[2023-03-27 04:05] LABS: BUN Creatinine Ratio 25.5 (6-22); Blood Urea Nitrogen 14 mg/dL (7-17); Calcium 8.9 mg/dL (8.4-10.2); Carbon Dioxide 28 mmol/L (22-32); Chloride 97 mmol/L (98-107); Estimated Glomerular Filt Rate > 60 mL/min (>60); Glucose 137 mg/dL (70-100); HEMOLYSIS < 15 (0-50); Potassium 3.7 mmol/L (3.4-5.1); Sodium 133 mmol/L (137-145)
[2023-03-27 04:17] LABS: Troponin I < 0.012 ng/mL (0.01-0.034)
[2023-03-27 04:28] LABS: Neutrophils Absolute Manual 16544 /uL (3000-5900); Total Cells Counted 100
[2023-03-27 04:29] LABS: Anisocytosis 1+; Microcytosis 1+
[2023-03-27] MEDS: PANTOPRAZOLE DR 20 MG TABLET PO (06:39)
[2023-03-27] MEDS: methylPREDNISolone 125 MG/2 ML VIAL IV ×4 (06:39→23:32)
--- NOTE | 2023-03-27 08:59 | PM.PN.1 ---
Subjective Subjective Interval history: Patient still having bloody BM's and abd pain. Spoke with GI at [facility] and they recommended transfer for GI consultation and colonoscopy given steroids aren't improving her symptoms. Exam Vital Signs (past 8 hours): - 03/27/23 03:10 03/27/23 03:12 03/27/23 04:15 Temperature Pulse Rate 94 H 89 88 Respiratory Rate 25 H Blood Pressure 210/111 H 180/103 H 149/80 H Pulse Oximetry 97 Oxygen Flow Rate 03/27/23 08:00 Temperature 98 F Pulse Rate 71 Respiratory Rate 16 Blood Pressure 141/81 H Pulse Oximetry 94 Oxygen Flow Rate 0 Oxygen Delivery Method Room Air Oxygen Flow Rate 0 Narrative Exam Narrative: NAD, flat affect, no distress. Appears uncomfortable. Lungs are clear, normal rate and effort. Heart is regular, no murmur. Abdomen is soft, some tenderness in the left lateral aspect. No guarding or rebound. Legs are free of edema. Objective Labs 03/27/23 03:47 03/27/23 03:47 Labs: Laboratory Results - last 24 hr 03/27/23 03:47 WBC 17.6 H RBC 4.95 Hgb 11.5 L Hct 35.8 L MCV 72.2 L MCH 23.2 L MCHC 32.1 RDW 15.3 H Plt Count 358 Neut % (Auto) Not Reportable Lymph % (Auto) Not Reportable [place] % (Auto) Not Reportable Eos % (Auto) Not Reportable Baso % (Auto) Not Reportable Lymph # (Auto) Not Reportable [place] # (Auto) Not Reportable Baso # (Auto) Not Reportable Total Counted 100 Seg Neutrophils % 93.0 H Band Neutrophils % 1.0 L Lymphocytes % (Manual) 1.0 L Monocytes % (Manual) 2.0 Eosinophils % (Manual) 1.0 L Myelocytes % 1.0 H Promyelocytes % 1.0 H Neutrophils # (Manual) 97090 H RBC Morphology See below Anisocytosis 1+ H Microcytosis 1+ H Sodium 133 L Potassium 3.7 Chloride 97 L Carbon Dioxide 28 BUN 14 Creatinine 0.55 Estimated GFR > 60 BUN/Creatinine Ratio 25.5 H Glucose 137 H Lactate 1.0 Calcium 8.9 Troponin I < 0.012 PFSH Medical History PCOS (polycystic ovarian syndrome) Jaundice of recent onset Cholelithiasis Hirsutism Hyperlipidemia PCOS (polycystic ovarian syndrome) PCOS (polycystic ovarian syndrome) 1 para 1 (normal spontaneous vaginal delivery) (2013) Surgical History S/P laparoscopic cholecystectomy Family History Father Hyperlipidemia Social History marital status: number of children: 4 household members: spouse education level: college occupational status: employed Smoking Status: Never smoker alcohol intake: never Assessment & Plan Assessment & Plan narrative: 1. New-onset inflammatory bowel disease, POA and active. This appears to be slowly improving. -presents with 2 weeks of bloody diarrhea and abd pain -stool PCR negative, CDT negative. -CT abd with pancolitis of ascending, transverse and descending colon, likely UC with distribution -patient's brother has Ulcerative Colitis and is on Remicade. -continue IV solu-medrol 125mg q6h -continue mesalamine 1.2g BID -Dr. Callejas general surgery consulted and ruled out appendicitis, thinks IBD likely and rec outpatient GI f/up for colonoscopy -fecal calprotectin peding -pain control as abdomen pain is severe (Oxy Q 3) -can advance diet as tolerated -Added Ativan 03/24 for anxiety. -today is day 5 of intensive IV steroids, and not much improvement with ongoing bloody BM's and abd pain requiring IV dilaudid -spoke with GI at [facility] who recommended transfer for GI consultation, colonoscopy and possible biologic therapy 2. Depression, POA -continue zoloft Dispo: Pending transfer to higher level of care. Quality VTE Deep Vein Thrombosis/Pulmonary Embolism Present on Admission: No
[2023-03-27] MEDS: ACETAMINOPHEN 325 MG TABLET 975 MG PO ×3 (09:32→21:17)
[2023-03-27] MEDS: MESALAMINE 400 MG CAP.DRTAB. 1200 MG PO ×2 (09:32→21:17)
[2023-03-27] MEDS: lisinopriL 5 MG TABLET PO (09:33)
[2023-03-27] MEDS: SERTRALINE 50 MG TABLET 100 MG PO (09:33)
[2023-03-27] MEDS: OXYCODONE IR 5 MG TABLET PO ×3 (09:37→19:19)
[2023-03-27 13:09] LABS: Antimyeloperoxidase Antibodies <0.2 units (0.0-0.9); Antiproteinase 3 Antibodies <0.2 units (0.0-0.9); Cytoplasmic C-ANCA <1:20 titer (Neg:<1:20); Perinuclear P-ANCA <1:20 titer (Neg:<1:20)
[2023-03-27] MEDS: HYDROMORPHONE 1 MG INJ IV (15:00)
[2023-03-28] VITALS (8 sets, daily range): BP systolic 141–197; BP diastolic 83–103; PULSE 64–88; RESP 14–19; TEMP 35.8–36.4; O2SAT 96–97
[2023-03-28] MEDS: HYDROMORPHONE 1 MG INJ IV ×3 (02:25→23:28)
[2023-03-28 04:45] LABS: Add Manual Diff / Slide Review NO; Basophils Absolute Auto 0 /uL (0-100); Basophils Percent Auto 0.1 % (0-2); Eosinophils Absolute Auto 100 /uL (0-450); Eosinophils Percent Auto 0.7 % (2-4); Hematocrit 33.3 % (36-46); Hemoglobin 10.7 g/dL (12.0-16.0); Lymphocytes Absolute Auto 500 /uL (1100-4500); Lymphocytes Percent Auto 3.4 % (25-40); Mean Corpuscular HGB Conc 32.1 % (30-36); Mean Corpuscular Hemoglobin 23.1 PG (26-34); Monocytes Absolute Auto 500 /uL (0-900); Monocytes Percent Auto 3.4 % (3-14); Neutrophils Absolute Auto 14500 /uL (1500-7000); Neutrophils Percent Auto 92.4 % (50-75); Platelet Count 312 X10^3/uL (150-400); Red Blood Cell Count 4.62 X10^6/uL (4.0-5.2); Red Cell Distribution Width 15.3 % (11.6-14.8); White Blood Cell Count 15.7 X10^3/uL (4.5-11.0)
[2023-03-28 04:55] LABS: BUN Creatinine Ratio 31.9 (6-22); Blood Urea Nitrogen 15 mg/dL (7-17); Calcium 8.5 mg/dL (8.4-10.2); Carbon Dioxide 30 mmol/L (22-32); Chloride 96 mmol/L (98-107); Estimated Glomerular Filt Rate > 60 mL/min (>60); Glucose 129 mg/dL (70-100); HEMOLYSIS 28 (0-50); Sodium 133 mmol/L (137-145)
[2023-03-28] MEDS: PANTOPRAZOLE DR 20 MG TABLET PO (07:01)
[2023-03-28] MEDS: methylPREDNISolone 125 MG/2 ML VIAL IV (07:01)
--- NOTE | 2023-03-28 07:36 | P.PN_ITS ---
Subjective Subjective Interval history: Patient accepted by Dr. Cohen hospitalist and Dr. Zenon CARTER to [facility] for transfer. Awaiting bed. Exam Vital Signs (past 8 hours): - 03/29/23 00:00 03/29/23 03:42 03/29/23 04:00 Temperature 97.3 F L 96.3 F L Pulse Rate 68 73 73 Respiratory Rate 17 16 Blood Pressure 159/83 H 175/89 H 175/89 H Pulse Oximetry 93 96 Oxygen Flow Rate 0 0 03/29/23 04:12 03/29/23 05:00 Temperature Pulse Rate 77 77 Respiratory Rate Blood Pressure 149/80 H 149/80 H Pulse Oximetry Oxygen Flow Rate Oxygen Delivery Method Room Air Oxygen Flow Rate 0 Narrative Exam Narrative: NAD, flat affect, no distress. Appears uncomfortable. Lungs are clear, normal rate and effort. Heart is regular, no murmur. Abdomen is soft, tenderness in the left lateral quadrant. No guarding or rebound. Legs are free of edema. Objective Labs 03/28/23 04:33 03/28/23 04:33 Labs: Laboratory Results - last 24 hr 03/22/23 13:24 Stool Calprotectin 6680 H [facility] Medical History PCOS (polycystic ovarian syndrome) Jaundice of recent onset Cholelithiasis Hirsutism Hyperlipidemia PCOS (polycystic ovarian syndrome) PCOS (polycystic ovarian syndrome) 1 para 1 (normal spontaneous vaginal delivery) (2013) Surgical History S/P laparoscopic cholecystectomy Family History Father Hyperlipidemia Social History marital status: number of children: 4 household members: spouse education level: college occupational status: employed Smoking Status: Never smoker alcohol intake: never Assessment & Plan Assessment & Plan narrative: 1. New-onset inflammatory bowel disease, POA and active. This appears to be slowly improving. -presents with 2 weeks of bloody diarrhea and abd pain -stool PCR negative, CDT negative. -CT abd with pancolitis of ascending, transverse and descending colon, likely UC with distribution -patient's brother has Ulcerative Colitis and is on Remicade. -continue IV solu-medrol 125mg q6h -continue mesalamine 1.2g BID -Dr. Callejas general surgery consulted and ruled out appendicitis, thinks IBD likely and rec outpatient GI f/up for colonoscopy -fecal calprotectin peding -pain control as abdomen pain is severe (Oxy Q 3) -can advance diet as tolerated -Added Ativan 03/24 for anxiety. -today is day 5 of intensive IV steroids, and not much improvement with ongoing bloody BM's and abd pain requiring IV dilaudid -spoke with GI at [facility] who recommended transfer for GI consultation, colonoscopy and possible biologic therapy 2. Depression, POA -continue zoloft Dispo: Pending transfer to higher level of care. Quality VTE Deep Vein Thrombosis/Pulmonary Embolism Present on Admission: No
[2023-03-28] MEDS: HYDROMORPHONE 0.5 MG INJ IV ×3 (07:51→20:22)
[2023-03-28] MEDS: MESALAMINE 400 MG CAP.DRTAB. 1200 MG PO ×2 (08:46→20:19)
[2023-03-28] MEDS: ACETAMINOPHEN 325 MG TABLET 975 MG PO ×3 (08:46→20:19)
[2023-03-28] MEDS: lisinopriL 5 MG TABLET PO (08:46)
[2023-03-28] MEDS: SERTRALINE 50 MG TABLET 100 MG PO (08:46)
[2023-03-28] MEDS: SODIUM CHLORIDE 0.9% 1,000 ML 75 ML IV ×2 (10:03→20:19)
[2023-03-28] MEDS: MECLIZINE HCL 12.5 MG TABLET 25 MG PO (10:03)
--- NOTE | 2023-03-28 10:25 | CM.DPC ---
DCP Cont. Reviewed EMR and team rounds for status updates. Pt is pending transfer to [facility], hopefully today. electricians top helper is monitoring.
--- NOTE | 2023-03-28 11:23 | P.DS_ITS ---
History of Present Illness History of Present Illness Date Patient Seen: 03/22/23 Time Patient Seen: 22:51 Date of Onset of Symptoms: 03/11/23 Chief complaint: ABD Pain Narrative: The pjt is a 37 yo with PMH of PCOS, obesity, HTN, and depression who reports having bloody diarrhea at home for the past 2 weeks, about 5-7 stools per day. She reports having some blood in the stool but mostly just soupy. She denies any fevers, chills, nausea, vomiting, no one that she lives with has similar symptoms. Taylor did have a similar episode for a month last year as well as the year before that. she has never had a colonoscopy to date. Her brother has inflammatory bowel disease of some sort and is on Remicaide. She states it has been persistent abdominal pain that has been unrelenting although sometimes is more intense. Patient states it is a 5 to 7/10 at present. She also has been having loose stools that are very watery about 10 times a day for the past 2 weeks. She describes the pain as a constant cramp sensation. The last few nights it has been worsening and has kept her from sleeping. She endorses some red blood in her stools intermittently. She states she has had some nausea but denies vomiting. She denies mucus in her stools. She notes she has had a few similar episodes over the past 2 years but has never had a diagnosis for this. She states she has been having difficulty eating as she has no appetite and eating seems to exacerbate her symptoms. She has been getting fluids down. She denies fevers chills dysuria dizziness, lightheadedness, syncope urgency frequency of urination or other symptoms. Discharge Providers Provider Date of admission: 03/24/23 11:02 Discharge Date: 03/28/23 Primary care physician: Leah Martinez DO Consults: 03/22/23 21:19 Consult to Physician Routine Comment: Consulting Provider: Joni Blake Reason for consultation: colitis Has provider been notified: Yes 03/23/23 13:41 Consult to General Surgery Routine Comment: Consulting Provider: Kamlesh Callejas Reason for consultation: possible IBD Discharge provider: John Aguilar DO Summary Hospital Course Discharge Diagnosis: 1. New-onset inflammatory bowel disease, POA and active. -presents with 2 weeks of bloody diarrhea and abd pain -stool C. diff PCR negative -CT abd with pancolitis of ascending, transverse and descending colon, likely UC with distribution -patient's brother has Ulcerative Colitis and is on Remicade. -received IV solu-medrol 125mg q6h x5 days -received mesalamine 1.2g BID x5 days -Dr. Callejas general surgery consulted and ruled out appendicitis, thinks IBD likely and rec outpatient GI f/up for colonoscopy -fecal calprotectin pending -pain control as abdomen pain is severe (Oxy Q 3 plus dilaudid IV PRN) -on clear liquid diet -Added Ativan 03/24 for anxiety. -today is day 5 of intensive IV steroids, and not much improvement with ongoing bloody BM's and abd pain requiring IV dilaudid -spoke with GI at [facility] who recommended transfer for GI consultation, colonoscopy and possible biologic therapy -accepted for transfer to [facility] by Dr. Cohen with Dr. Yarbrough GI to consult 2. Depression, POA -continue zoloft 3. HTN -continue lisinopril Hospital Course: Admitted for 2 weeks of bloody BM's and abd pain. Patient noted similar episodes x2 within the past 2 weeks but was diagnosed with gastroenteritis in the ED and sent home. She states it would take a month to improve after each episode. CT scan showed pancolitis. C. diff PCR toxin negative. Started on IV steroids and mesalamine for presumed UC. Over 5 days did not improve and continues to have bloody BM's but only 2-3 per day but lots of abd pain mostly in LLQ. Spoke with GI at [facility] who recommended transfer for colonoscopy and possible biologics with GI consultation. She was accepted to [facility] for transfer. Exam Vital Signs (past 8 hours): - 03/28/23 04:36 03/28/23 08:00 03/28/23 08:46 Temperature 97 F L Pulse Rate 64 66 66 Respiratory Rate 14 19 Blood Pressure 141/83 H 163/91 H 163/91 H Pulse Oximetry 96 96 Oxygen Flow Rate 0 Oxygen Delivery Method Room Air Oxygen Flow Rate 0 Narrative Exam Narrative: NAD, flat affect, no distress. Appears uncomfortable. Lungs are clear, normal rate and effort. Heart is regular, no murmur. Abdomen is soft, tenderness in the left lateral quadrant. No guarding or rebound. Legs are free of edema. Objective Labs 03/28/23 04:33 03/28/23 04:33 Labs: Laboratory Results - last 24 hr 03/22/23 03/28/23 13:55 04:33 WBC 15.7 H RBC 4.62 Hgb 10.7 L Hct 33.3 L MCV 72.0 L MCH 23.1 L MCHC 32.1 RDW 15.3 H Plt Count 312 Neut % (Auto) 92.4 H Lymph % (Auto) 3.4 L [place] % (Auto) 3.4 Eos % (Auto) 0.7 L Baso % (Auto) 0.1 Neut # (Auto) 72600 H Lymph # (Auto) 500 L [place] # (Auto) 500 Eos # (Auto) 100 Baso # (Auto) 0 Sodium 133 L Potassium 4.0 Chloride 96 L Carbon Dioxide 30 BUN 15 Creatinine 0.47 L Estimated GFR > 60 BUN/Creatinine Ratio 31.9 H Glucose 129 H Calcium 8.5 Atypical ANCA <1:20 c-ANCA Antibody <1:20 Proteinase 3 (PR3) Ab <0.2 p-ANCA Perinuc Pattern <1:20 Anti-Myeloperoxidase Ab <0.2 PFSH Medical History PCOS (polycystic ovarian syndrome) Jaundice of recent onset Cholelithiasis Hirsutism Hyperlipidemia PCOS (polycystic ovarian syndrome) PCOS (polycystic ovarian syndrome) 1 para 1 (normal spontaneous vaginal delivery) (2013) Surgical History S/P laparoscopic cholecystectomy Family History Father Hyperlipidemia Social History marital status: number of children: 4 household members: spouse education level: college occupational status: employed Smoking Status: Never smoker alcohol intake: never Discharge Plan Discharge Plan Patient Disposition: Xfer Acute Care Hospital Discharge Data Primary Care Provider: Leah Martinez VTE Deep Vein Thrombosis/Pulmonary Embolism Present on Admission: No
[2023-03-28] MEDS: methylPREDNISolone 125 MG/2 ML VIAL 60 MG IV ×3 (11:24→23:28)
[2023-03-28 15:27] LABS: Calprotectin, Stool 6680 ug/g (0-120)
[2023-03-28] MEDS: HYDRALAZINE 20 MG/ML VIAL 10 MG IV (20:20)
[2023-03-29] VITALS (7 sets, daily range): BP systolic 123–175; BP diastolic 79–89; PULSE 68–77; RESP 16–19; TEMP 35.7–36.6; O2SAT 93–96
[2023-03-29] MEDS: HYDRALAZINE 20 MG/ML VIAL 10 MG IV (03:42)
[2023-03-29] MEDS: HYDROMORPHONE 0.5 MG INJ IV (03:42)
[2023-03-29] MEDS: PANTOPRAZOLE DR 20 MG TABLET PO (05:11)
[2023-03-29] MEDS: OXYCODONE IR 10 MG TABLET PO ×2 (05:11→14:09)
[2023-03-29] MEDS: methylPREDNISolone 125 MG/2 ML VIAL 60 MG IV ×2 (05:12→12:27)
--- NOTE | 2023-03-29 07:35 | PM.DS.1 ---
History of Present Illness History of Present Illness Chief complaint: ABD Pain Narrative: The pjt is a 37 yo with PMH of PCOS, obesity, HTN, and depression who reports having bloody diarrhea at home for the past 2 weeks, about 5-7 stools per day. She reports having some blood in the stool but mostly just soupy. She denies any fevers, chills, nausea, vomiting, no one that she lives with has similar symptoms. Taylor did have a similar episode for a month last year as well as the year before that. she has never had a colonoscopy to date. Her brother has inflammatory bowel disease of some sort and is on Remicaide. She states it has been persistent abdominal pain that has been unrelenting although sometimes is more intense. Patient states it is a 5 to 7/10 at present. She also has been having loose stools that are very watery about 10 times a day for the past 2 weeks. She describes the pain as a constant cramp sensation. The last few nights it has been worsening and has kept her from sleeping. She endorses some red blood in her stools intermittently. She states she has had some nausea but denies vomiting. She denies mucus in her stools. She notes she has had a few similar episodes over the past 2 years but has never had a diagnosis for this. She states she has been having difficulty eating as she has no appetite and eating seems to exacerbate her symptoms. She has been getting fluids down. She denies fevers chills dysuria dizziness, lightheadedness, syncope urgency frequency of urination or other symptoms. Discharge Providers Provider Date of admission: 03/24/23 11:02 Discharge Date: 03/29/23 Primary care physician: Leah Martinez DO Consults: 03/22/23 21:19 Consult to Physician Routine Comment: Consulting Provider: Joni Blake Reason for consultation: colitis Has provider been notified: Yes 03/23/23 13:41 Consult to General Surgery Routine Comment: Consulting Provider: Kamlesh Callejas Reason for consultation: possible IBD Discharge provider: John Aguilar DO Summary Hospital Course Discharge Diagnosis: 1. New-onset inflammatory bowel disease, POA and active. -presents with 2 weeks of bloody diarrhea and abd pain -stool C. diff PCR negative -CT abd with pancolitis of ascending, transverse and descending colon, likely UC with distribution -patient's brother has Ulcerative Colitis and is on Remicade. -received IV solu-medrol 125mg q6h x5 days -received mesalamine 1.2g BID x5 days -Dr. Callejas general surgery consulted and ruled out appendicitis, thinks IBD likely and rec outpatient GI f/up for colonoscopy -fecal calprotectin elevated at 6680 -pain control as abdomen pain is severe (Oxy Q 3 plus dilaudid IV PRN) -on clear liquid diet -Added At03/24 for anxiety. -today is day 5 of intensive IV steroids, and not much improvement with ongoing bloody BM's and abd pain requiring IV dilaudid -spoke with GI at [facility] who recommended transfer for GI consultation, colonoscopy and possible biologic therapy -accepted for transfer to [facility] by Dr. Cohen with Dr. Zenon CARTER to consult 2. Depression, POA -continue zoloft 3. HTN -continue lisinopril Hospital Course: Admitted for 2 weeks of bloody BM's and abd pain. Patient noted similar episodes x2 within the past 2 weeks but was diagnosed with gastroenteritis in the ED and sent home. She states it would take a month to improve after each episode. CT scan showed pancolitis. C. diff PCR toxin negative. Started on IV steroids and mesalamine for presumed UC. Over 5 days did not improve and continues to have bloody BM's but only 2-3 per day but lots of abd pain mostly in LLQ. Spoke with GI at [facility] who recommended transfer for colonoscopy and possible biologics with GI consultation. She was accepted to [facility] for transfer. Exam Vital Signs (past 8 hours): - 03/29/23 00:00 03/29/23 03:42 03/29/23 04:00 Temperature 97.3 F L 96.3 F L Pulse Rate 68 73 73 Respiratory Rate 17 16 Blood Pressure 159/83 H 175/89 H 175/89 H Pulse Oximetry 93 96 Oxygen Flow Rate 0 0 03/29/23 04:12 03/29/23 05:00 Temperature Pulse Rate 77 77 Respiratory Rate Blood Pressure 149/80 H 149/80 H Pulse Oximetry Oxygen Flow Rate Oxygen Delivery Method Room Air Oxygen Flow Rate 0 Narrative Exam Narrative: NAD, flat affect, no distress. Appears uncomfortable. Lungs are clear, normal rate and effort. Heart is regular, no murmur. Abdomen is soft, tenderness in the left lateral quadrant. No guarding or rebound. Legs are free of edema. Objective Labs 03/28/23 04:33 03/28/23 04:33 Labs: Laboratory Results - last 24 hr 03/22/23 13:24 Stool Calprotectin 6680 H [facility] Medical History PCOS (polycystic ovarian syndrome) Jaundice of recent onset Cholelithiasis Hirsutism Hyperlipidemia PCOS (polycystic ovarian syndrome) PCOS (polycystic ovarian syndrome) 1 para 1 (normal spontaneous vaginal delivery) (2013) Surgical History S/P laparoscopic cholecystectomy Family History Father Hyperlipidemia Social History marital status: number of children: 4 household members: spouse education level: college occupational status: employed Smoking Status: Never smoker alcohol intake: never Discharge Plan Discharge Plan Patient Disposition: Xfer Acute Care Hospital Discharge Data Primary Care Provider: Leah Martinez VTE Deep Vein Thrombosis/Pulmonary Embolism Present on Admission: No
--- NOTE | 2023-03-29 08:16 | CM.DPC ---
DCP Cont. Reviewed EMR and spoke with the Hospitalist re: status updates. Plan is for pt to transfer out to [facility] today for further eval and tx. No further DCP needs identified at this time.
[2023-03-29] MEDS: ACETAMINOPHEN 325 MG TABLET 975 MG PO ×2 (09:20→14:10)
[2023-03-29] MEDS: lisinopriL 5 MG TABLET PO (09:20)
[2023-03-29] MEDS: MESALAMINE 400 MG CAP.DRTAB. 1200 MG PO (09:20)
[2023-03-29] MEDS: SERTRALINE 50 MG TABLET 100 MG PO (09:20)
[2023-03-29] MEDS: OXYCODONE IR 5 MG TABLET PO (09:31)
[2023-03-29] MEDS: HYDROMORPHONE 0.5 MG INJ 1 MG IV (11:36)
--- NOTE | 2023-03-29 12:13 | PC.NURSE ---
pt had a fall approximately 1130. Family member came to nurses station and said that he assisted the patient to the floor while in the bathroom due to weakness. pt was able to get herself to the bed. When I went to go see the patient in the room, she was already in the bed. vitals and BG were taken. notified provider and grinder outside diameter.
== END 2023-03-29 15:27 | disposition short-term general hospital (02) | DRG 392 ==
LOC: ED 21:13 → AC 21:13
PROVIDERS: Emergency Medicine; Internal Medicine; Student in an Organized Health Care Education/Training Program; Admitting Provider Internal Medicine; Emergency Provider Emergency Medicine; PCP Family Medicine; Referring Provider Emergency Medicine; Visit Provider Internal Medicine
DX: K52.9 Noninfective gastroenteritis and colitis, unspecified (principal); E87.6 Hypokalemia; D50.8 Other iron deficiency anemias; F32.A Depression, unspecified; I10 Essential (primary) hypertension
CPT/HCPCS: 36415; 74177; 80048; 80053; 81003; 81015; 81025; 82962; 83605; 83690; 83993; 84484; 85007; 85025; 86140; 86256; 87507; 93005; 93010; 96365; 96375; 99232; 99284; 99285; G0378; J0360; J1170; J1650; J1885; J2060; J2405; J2930

== ENCOUNTER → 2023-07-23 10:25 | Outpatient (CLI) | payer OTHER, SELFPAY ==
[2023-03-22 22:12] VITALS: BMI 38.4
[2023-07-23 11:21] LABS: Add Manual Diff / Slide Review NO; Basophils Absolute Auto 100 /uL (0-100); Basophils Percent Auto 0.9 % (0-2); Eosinophils Absolute Auto 100 /uL (0-450); Eosinophils Percent Auto 1.2 % (2-4); Hematocrit 34.7 % (36-46); Hemoglobin 11.4 g/dL (12.0-16.0); Lymphocytes Absolute Auto 1300 /uL (1100-4500); Lymphocytes Percent Auto 21.3 % (25-40); Mean Corpuscular HGB Conc 32.8 % (30-36); Mean Corpuscular Hemoglobin 23.5 PG (26-34); Mean Corpuscular Volume 71.8 fL (80-100); Monocytes Absolute Auto 300 /uL (0-900); Monocytes Percent Auto 5.3 % (3-14); Neutrophils Absolute Auto 4500 /uL (1500-7000); Neutrophils Percent Auto 71.3 % (50-75); Platelet Count 200 X10^3/uL (150-400); Red Blood Cell Count 4.83 X10^6/uL (4.0-5.2); Red Cell Distribution Width 16.8 % (11.6-14.8); White Blood Cell Count 6.3 X10^3/uL (4.5-11.0)
[2023-07-23 11:34] LABS: Alanine Aminotransferase 20 IU/L (<35); Albumin 4.3 g/dL (3.5-5.0); Albumin Globulin Ratio 1.4 (1.0-2.8); Alkaline Phosphatase 68 U/L (38-126); Aspartate Aminotransferase 21 IU/L (14-36); BUN Creatinine Ratio 20.6 (6-22); Bilirubin Total 0.4 mg/dL (0.2-1.3); Blood Urea Nitrogen 13 mg/dL (7-17); Calcium 8.9 mg/dL (8.4-10.2); Carbon Dioxide 23 mmol/L (22-32); Chloride 109 mmol/L (98-107); Cholesterol 235 mg/dL (140-199); Estimated Glomerular Filt Rate > 60 mL/min (>60); Globulin 3.1 g/dL (1.7-4.1); Glucose 94 mg/dL (70-100); HDL Cholesterol 51 mg/dL (40-60); HEMOLYSIS < 15 (0-50); LDL Cholesterol Calculated 166 mg/dL (<100); Sodium 137 mmol/L (137-145); Total Protein 7.4 g/dL (6.3-8.2); Triglycerides 91 mg/dL (35-150)
[2023-07-23 11:38] LABS: HEMOLYSIS < 15 (0-50); Iron 41 ug/dL (37-170)
[2023-07-23 11:50] LABS: Percent Iron Saturation 10 % (15-50); Total Iron Binding Capacity 422 ug/dL (265-497); Transferrin 343 mg/dL (206-381)
[2023-07-23 11:55] LABS: Free T4, Direct Thyroxine 0.79 ng/dL (0.78-2.19)
[2023-07-23 12:07] LABS: Ferritin 5 ng/mL (6-137)
[2023-07-23 12:09] LABS: Thyroid Stimulating Hormone 2.38 uIU/mL (0.47-4.68)
== END ==
PROVIDERS: PCP Registered Nurse Diabetes Educator; Referring Provider Registered Nurse Diabetes Educator; Visit Provider Registered Nurse Diabetes Educator
DX: Z00.00 Encounter for general adult medical examination without abnormal findings (principal); D50.9 Iron deficiency anemia, unspecified; K50.10 Crohn's disease of large intestine without complications
CPT/HCPCS: 36415; 80053; 80061; 82728; 83540; 83550; 84439; 84443; 85025

== ENCOUNTER → 2023-09-17 06:55 | Outpatient (CLI) | payer OTHER, SELFPAY ==
[2023-03-22 22:12] VITALS: BMI 38.4
--- NOTE | 2023-09-17 06:55 | DI.ECHO.S_ITS ---
[facility]---------+ [facility] : : [address] : : [place] : : [id number] : : Phone: [phone] Echocardiogram Report + + :Name: ROBBIN LEONE Study Date: 09/17/2023 Height: 66 in : :Hospital ReadingLocation: Weight: 250 lb : : Gender: Female BSA: 2.2 m2 : :: 1985 Age: 37 yrs BP: 140/93 mmHg: :Reason For Study: EKG WITH POSSILBE LVH : :Ordering Physician: DOMINIC, : :RUTHIE Performed By: Moon Mtz : :Referring: RUTHIE ALFARO : + + Interpretation Summary The ejection fraction is estimated to be 60-65%. Diastolic parameters suggest probable normal left ventricular diastolic function and normal filling pressures. The right ventricle is normal in size and function. No significant valvular abnormalities. Pulmonary artery pressures cannot be estimated because of the lack of a measurable TR jet velocity but the IVC suggests a CVP of around 3 mmHg. Procedure: A two-dimensional transthoracic echocardiogram with color flow and Doppler was performed. The study quality was technically adequate. There is no prior echocardiogram noted for this patient. The patient was in sinus rhythm with heart rates between 72-80 bpm during the exam. Left Ventricle: The left ventricle is normal in size and wall thickness. The ejection fraction is estimated to be 60-65%. Diastolic parameters suggest probable normal left ventricular diastolic function and normal filling pressures. Right Ventricle: The right ventricle is normal in size and function. Atria: The left atrial size is normal. Right atrial size is normal. There is no Doppler evidence for an interatrial shunt. Mitral Valve: The mitral valve is normal in structure and function. There is no mitral regurgitation noted. Aortic Valve: The aortic valve opens well. There is no aortic valve stenosis. No aortic regurgitation is present. Tricuspid Valve: The tricuspid valve is normal in structure and function. There is trace tricuspid regurgitation. Pulmonary artery pressures cannot be estimated because of the lack of a measurable TR jet velocity but the IVC suggests a CVP of around 3 mmHg. Pulmonic Valve: The pulmonic valve leaflets are thin and pliable; valve motion is normal. There is no pulmonic valvular regurgitation. Great Vessels: The aortic root is normal size. The dimensions of the ascending aorta are normal. The IVC is of normal diameter and collapses greater than 50% with a sniff. This suggests a low right atrial pressure of 3 mm Hg. Pericardium/ Pleura There is no pericardial effusion. There is no pleural effusion. MMode/2D Measurements & Calculations LVIDd: 4.8 cm LVOT diam: 2.0 cm LVIDs: 3.1 cm Ao root diam: 2.9 cm FS: 35.8 % asc Aorta Diam: 2.9 cm EPSS: 0.23 cm Ao Arch Diam (Prox Trans): 2.4 cm IVSd: 0.80 cm LVPWd: 0.74 cm LV lopez. diameter/BSA (cm/m^2): 2.2 LV sys. diameter/BSA (cm/m^2): 1.4 LA A2 area: 17.6 cm2 RA long axis: 3.8 cm LA A4 area: 13.7 cm2 RA area: 9.2 cm2 LA length (vol): 4.8 cm RA vol: 18.9 ml LA vol: 42.5 ml RA : 8.6 ml/m2 LA vol index: 19.3 ml/m2 IVC diam: 1.4 cm RVD1 (basal): 3.9 cm TAPSE: 1.8 cm Doppler Measurements & Calculations Ao V2 max: 113.9 cm/sec LVOT Max Kirill: 105.2 cm/sec Ao V2 mean: 82.3 cm/sec LV V1 max P.5 mmHg Ao max P.2 mmHg LV V1 VTI: 21.9 cm Ao mean P.9 mmHg ASTER(I,D): 2.8 cm2 Ao V2 VTI: 23.4 cm ASTER(V,D): 2.8 cm2 sev ratio: 0.94 ASTER indexed to BSA (cm^2/m^2): 1.3 MV E max kirill: 109.1 cm/sec PA V2 max: 87.3 cm/sec MV A max kirill: 43.8 cm/sec PA V2 mean: 62.8 cm/sec MV E/A: 2.5 PA mean P.7 mmHg Med Peak E' Kirill: 6.4 cm/sec PA pr(Accel): 13.9 mmHg E/E' med: 17.0 Lat Peak E' Kirill: 13.0 cm/sec E/E' lat: 8.4 E/e' average: 12.7 MV dec time: 0.18 sec SV(LVOT): 66.6 ml Reading Physician:05:24 PM
== END ==
PROVIDERS: PCP Registered Nurse Diabetes Educator; Referring Provider Registered Nurse Diabetes Educator; Visit Provider Registered Nurse Diabetes Educator
DX: R94.31 Abnormal electrocardiogram [ECG] [EKG] (principal); I51.7 Cardiomegaly; I10 Essential (primary) hypertension
CPT/HCPCS: 93306

== ENCOUNTER → 2023-10-18 13:52 | Outpatient (CLI) | payer OTHER, SELFPAY ==
[2023-03-22 22:12] VITALS: BMI 38.4
--- NOTE | 2023-10-18 13:54 | DI.RAD.S_ITS ---
PROCEDURE: XR CHEST 2V INDICATIONS: Other pruritus TECHNIQUE: 2 views of the chest were acquired. COMPARISON: None. FINDINGS: Surgical changes and devices: None. Lungs and pleura: Lungs are clear. No pleural effusions or pneumothorax. Mediastinum: Mediastinal contours are normal. Heart size is normal. Bones and chest wall: No suspicious bony abnormalities. Soft tissues appear unremarkable. IMPRESSION: No acute cardiopulmonary abnormality is seen. Dictated by: Jarad Moseley M.D. on 10/19/2023 at 9:34 Approved by: Jarad Moseley M.D. on 10/19/2023 at 9:37
[2023-10-18 15:27] LABS: Erythrocyte Sedimentation Rate 28 MM/HR (0-20)
[2023-10-18 16:21] LABS: Hepatitis B Surface Antigen NEGATIVE s/c (NEGATIVE)
[2023-10-18 16:38] LABS: Hep C Virus Ab w/Reflex Quant NEGATIVE s/c (NEGATIVE)
[2023-10-19 01:41] LABS: Hepatitis B Surf AB Quant <3.5 mIU/mL (Immunity>10)
[2023-10-20 13:11] LABS: Anti Mitochondrial ABY IGG <20.0 Units (0.0-20.0)
[2023-10-21 16:11] LABS: ANA Screen, IFA Negative (.)
[2023-10-22 17:36] LABS: Albumin 3.4 g/dL (2.9-4.4); Alpha-1-Globulin 0.2 g/dL (0.0-0.4); Alpha-2-Globulin 0.7 g/dL (0.4-1.0); Gamma Globulin 1.1 g/dL (0.4-1.8); Globulin Total 3.2 g/dL (2.2-3.9); Protein, Total 6.6 g/dL (6.0-8.5)
== END ==
PROVIDERS: PCP Registered Nurse Diabetes Educator; Referring Provider Dermatology; Visit Provider Dermatology
DX: L29.8 Other pruritus (principal)
CPT/HCPCS: 36415; 71046; 83516; 84155; 84165; 85651; 86038; 86706; 86803; 87340

== ENCOUNTER → 2023-10-20 11:52 | Outpatient (CLI) | payer OTHER, SELFPAY ==
[2023-03-22 22:12] VITALS: BMI 38.4
[2023-10-24 16:12] LABS: M-Spike % Not Observed % (Not Observed); Protein, Total, 24 hr urine 109 mg/24 hr (30-150); Total Urine Protein 5.9 mg/dL (Not Estab.)
== END ==
PROVIDERS: PCP Registered Nurse Diabetes Educator; Referring Provider Dermatology; Visit Provider Dermatology
DX: L29.8 Other pruritus (principal)
CPT/HCPCS: 84156; 84166; 87045

== ENCOUNTER → 2023-11-15 08:32 | Outpatient (CLI) | payer OTHER, SELFPAY ==
[2023-03-22 22:12] VITALS: BMI 38.4
[2023-11-15 09:56] LABS: Hematocrit 36.4 % (36-46); Mean Corpuscular HGB Conc 32.8 % (30-36); Mean Corpuscular Hemoglobin 26.1 PG (26-34); Mean Corpuscular Volume 79.6 fL (80-100); Platelet Count 220 X10^3/uL (150-400); Red Blood Cell Count 4.58 X10^6/uL (4.0-5.2)
[2023-11-15 10:15] LABS: HEMOLYSIS < 15 (0-50); Iron 45 ug/dL (37-170)
[2023-11-15 10:17] LABS: BUN Creatinine Ratio 17.6 (6-22); Blood Urea Nitrogen 13 mg/dL (7-17); Calcium 9.2 mg/dL (8.4-10.2); Carbon Dioxide 19 mmol/L (22-32); Chloride 110 mmol/L (98-107); Estimated Glomerular Filt Rate > 60 mL/min (>60); Glucose 96 mg/dL (70-100); HEMOLYSIS < 15 (0-50); Potassium 4.3 mmol/L (3.4-5.1); Sodium 137 mmol/L (137-145)
[2023-11-15 10:27] LABS: Percent Iron Saturation 12 % (15-50); Total Iron Binding Capacity 379 ug/dL (265-497); Transferrin 302 mg/dL (206-381)
[2023-11-15 10:53] LABS: Ferritin 11 ng/mL (6-137)
== END ==
LOC: LAB 08:33
PROVIDERS: PCP Registered Nurse Diabetes Educator; Referring Provider Registered Nurse Diabetes Educator; Visit Provider Registered Nurse Diabetes Educator
DX: I10 Essential (primary) hypertension (principal); D50.9 Iron deficiency anemia, unspecified
CPT/HCPCS: 36415; 80048; 82728; 83540; 83550; 85027

== ENCOUNTER → 2024-01-17 10:59 | Outpatient (CLI) | payer OTHER, SELFPAY ==
[2023-03-22 22:12] VITALS: BMI 38.4
[2024-01-17 12:06] LABS: BUN Creatinine Ratio 8.6 (6-22); Blood Urea Nitrogen 6 mg/dL (7-17); Calcium 9.2 mg/dL (8.4-10.2); Carbon Dioxide 25 mmol/L (22-32); Chloride 106 mmol/L (98-107); Estimated Glomerular Filt Rate > 60 mL/min (>60); Glucose 90 mg/dL (70-100); HEMOLYSIS < 15 (0-50); Potassium 4.1 mmol/L (3.4-5.1); Sodium 137 mmol/L (137-145)
== END ==
PROVIDERS: PCP Registered Nurse Diabetes Educator; Referring Provider Registered Nurse Diabetes Educator; Visit Provider Registered Nurse Diabetes Educator
DX: Z51.81 Encounter for therapeutic drug level monitoring (principal)
CPT/HCPCS: 36415; 80048

== ENCOUNTER → 2024-01-21 10:39 | Outpatient (CLI) | payer OTHER, SELFPAY ==
[2023-03-22 22:12] VITALS: BMI 38.4
--- NOTE | 2024-01-21 10:40 | DI.RAD.S_ITS ---
PROCEDURE: XR WRIST LT MIN 3V INDICATIONS: left wrist pain TECHNIQUE: 3 views of the wrist were acquired. COMPARISON: None. FINDINGS: Bones: No fractures or dislocations. No suspicious bony lesions. Soft tissues: No suspicious soft tissue calcifications. IMPRESSION: No acute bony abnormality. Dictated by: Harris Rojas M.D. on 01/22/2024 at 11:39 Approved by: Harris Rojas M.D. on 01/22/2024 at 11:39
== END ==
PROVIDERS: PCP Registered Nurse Diabetes Educator; Referring Provider Registered Nurse Diabetes Educator; Visit Provider Registered Nurse Diabetes Educator
DX: M25.532 Pain in left wrist (principal)
CPT/HCPCS: 73110

== ENCOUNTER → 2024-02-22 06:59 | Outpatient (CLI) | payer OTHER, SELFPAY ==
[2023-03-22 22:12] VITALS: BMI 38.4
[2024-02-22 08:27] LABS: Hematocrit 38.5 % (36-46); Hemoglobin 12.8 g/dL (12.0-16.0); Mean Corpuscular HGB Conc 33.4 % (30-36); Mean Corpuscular Hemoglobin 26.8 PG (26-34); Mean Corpuscular Volume 80.3 fL (80-100); Platelet Count 187 X10^3/uL (150-400); Red Blood Cell Count 4.79 X10^6/uL (4.0-5.2); Red Cell Distribution Width 14.6 % (11.6-14.8); White Blood Cell Count 6.2 X10^3/uL (4.5-11.0)
[2024-02-22 09:01] LABS: Alanine Aminotransferase 36 IU/L (<35); Albumin 3.9 g/dL (3.5-5.0); Albumin Globulin Ratio 1.3 (1.0-2.8); Alkaline Phosphatase 79 U/L (38-126); Aspartate Aminotransferase 26 IU/L (14-36); Bilirubin Total 0.5 mg/dL (0.2-1.3); Blood Urea Nitrogen 9 mg/dL (7-17); Calcium 8.9 mg/dL (8.4-10.2); Carbon Dioxide 23 mmol/L (22-32); Chloride 105 mmol/L (98-107); Estimated Glomerular Filt Rate > 60 mL/min (>60); Glucose 97 mg/dL (70-100); HEMOLYSIS < 15 (0-50); Potassium 3.8 mmol/L (3.4-5.1); Sodium 134 mmol/L (137-145); Total Protein 6.9 g/dL (6.3-8.2)
== END ==
PROVIDERS: PCP Registered Nurse Diabetes Educator; Referring Provider Internal Medicine Gastroenterology; Visit Provider Internal Medicine Gastroenterology
DX: Z79.899 Other long term (current) drug therapy (principal)
CPT/HCPCS: 36415; 80053; 85027

== ENCOUNTER → 2024-06-12 15:05 | Outpatient (CLI) | payer OTHER, SELFPAY ==
[2023-03-22 22:12] VITALS: BMI 38.4
[2024-06-12 16:21] LABS: Hematocrit 39.4 % (36-46); Mean Corpuscular HGB Conc 33.1 % (30-36); Mean Corpuscular Hemoglobin 27.2 PG (26-34); Mean Corpuscular Volume 82.3 fL (80-100); Platelet Count 229 X10^3/uL (150-400); Red Blood Cell Count 4.79 X10^6/uL (4.0-5.2); Red Cell Distribution Width 14.7 % (11.6-14.8)
[2024-06-12 16:50] LABS: Alanine Aminotransferase 27 IU/L (<35); Albumin 4.3 g/dL (3.5-5.0); Albumin Globulin Ratio 1.4 (1.0-2.8); Alkaline Phosphatase 80 U/L (38-126); Aspartate Aminotransferase 24 IU/L (14-36); BUN Creatinine Ratio 11.7 (6-22); Bilirubin Total 0.4 mg/dL (0.2-1.3); Blood Urea Nitrogen 11 mg/dL (7-17); Calcium 9.7 mg/dL (8.4-10.2); Carbon Dioxide 25 mmol/L (22-32); Chloride 105 mmol/L (98-107); Estimated Glomerular Filt Rate > 60 mL/min (>60); Globulin 3.1 g/dL (1.7-4.1); Glucose 93 mg/dL (70-100); HEMOLYSIS < 15 (0-50); Potassium 4.3 mmol/L (3.4-5.1); Sodium 140 mmol/L (137-145); Total Protein 7.4 g/dL (6.3-8.2)
== END ==
LOC: LAB 15:07
PROVIDERS: PCP Registered Nurse Diabetes Educator; Referring Provider Internal Medicine Gastroenterology; Visit Provider Internal Medicine Gastroenterology
DX: Z79.899 Other long term (current) drug therapy (principal)
CPT/HCPCS: 36415; 80053; 85027; 86480